=== PATIENT | male | born 1970 | race Caucasian/White ===

== ENCOUNTER → 2018-04-02 | Day surgery (SDC) | payer BC ==
[~2018-04-02] VITALS: Ht 175.3 cm; Wt 122.5 kg
[2018-04-02] VITALS (8 sets, daily range): BP systolic 117–148; BP diastolic 68–88
[~2018-04-02] MED LIST: ASPIR 8181 MG PO; BACTRIM DS TAB1 EACH PO; CALCIUM500 MG PO; CLONIDINE HCL0.2 MG PO; FENTANYL CITRATE/PF 100MCG/2 ML INJ ONE; HEPARIN SOD (PORCINE) 1000 UNIT/ML 30ML ONE; IOPAMIDOL 370 MG/ML 200 ML INFUS..BTL INJ ONE; LEVAQUIN500 MG PO; LIDOCAINE HCL 2% LOCAL 20 ML VIAL ONE; LOSARTAN POTASS50 MG PO; MIDAZOLAM HCL 2 MG/2 ML VIAL ONE; MULTIVITAMINS1 EAC7 PO; PANTOPRAZOLE SO40 MG PO; PREDNISONE20 MG PO; SODIUM CHLORIDE 0.9% 1000ML 1,000 ML ONE; SODIUM CHLORIDE 0.9% 1000ML 2,000 ML ONE; TESSALON PERLE100 MG PO; VERAPAMIL HCL 2.5 MG/ML 2 ML VIAL ONE; VITAMIN C PO; VITAMIN E PO
--- OUTSIDE RECORDS SUMMARY | 2018-04-02 12:54 | XMS REPORT | Clinical Summary ---
Author Author Tito Rastafari Organization [facility] Address Unknown Phone Unavailable Care Team Providers Care Sales Commissions Analyst Name Role Phone Darek Aguilar DO PCP Allergies Comments Active Allergy Reactions Severity Noted Date Mild Nausea Codeine GI 09/07/2017 Intolerance Medications End Date Status Medication Sig Dispensed Refills Start Date Active clonIDINE (CATAPRES) 0.1 Take 0.1 mg 0 MG tablet by mouth daily. Active aspirin (ECOTRIN) 81 MG Take 81 mg by 0 enteric coated tablet mouth daily. Active multivit-minerals/folic Take 1 tablet 0 acid (ONE DAILY GUMMY by mouth VITES ORAL) daily. Active fexofenadine HCl (SIERRA Take 1 tablet 0 ORAL) by mouth daily as needed (allergies). Active acetaminophen (TYLENOL) Take 500 mg 0 500 MG tablet by mouth every 6 (six) hours as needed for mild pain. 09/11/2017 Discontinued losartan-hydrochlorothiaz Take 1 tablet 0 omar (HYZAAR) 50-12.5 mg by mouth per tablet daily. 10/11/2017 losartan (COZAAR) 50 MG Take 1 tablet 30 tablet 0 tabletIndications: (50 mg total) 8 Hypertension, unspecified by mouth type daily for 30 days. 10/12/2017 pantoprazole (PROTONIX) Take 1 tablet 30 tablet 0 40 MG EC tablet (40 mg total) 8 by mouth daily for 30 days. 09/11/2017 Discontinued predniSONE (DELTASONE) 10 Take 1 tablet 32 tablet 0 201 mg tablet (10 mg total) 8 by mouth daily for 32 days. Please take as instructed on discharge instructions. 10/13/2017 predniSONE (DELTASONE) 10 Take 1 tablet 32 tablet 0 05/17/201 mg tablet (10 mg total) 8 by mouth daily for 32 days. Please take as instructed on discharge instructions. Active Problems Problem Noted Date Optic neuritis 09/07/2017 Encounters Care Team Description Date Type Specialty Lolis Jack MD 10/02/2017 Telephone Ophthalmology Yareli Isabel RN 09/11/2017 Patient Quality Outreach Oracio Torres 09/10/2017 Refill Obstetrics and Gynecology Jacinto Lozano MD Septimus, Joshua D., MD Optic neuritis (Primary Dx); Hypertension, unspecified type; Cough 09/07/2017 [facility] General Internal Medicine - Encounter 09/11/2017 after 04/01/2017 Social History Date Tobacco Use Types Packs/Day Years Used Current Every Day Smoker Alcohol Use Drinks/Week oz/Week Comments Yes Sex Assigned at Date Recorded Not on file Industry Job Start Date Occupation Not on file Not on file Not on file Travel End Travel History Travel Start No recent travel history available. Last Filed Vital Signs Time Taken Vital Sign Reading 09/11/2017 10:35 AM CDT Blood Pressure 162/77 09/11/2017 9:07 AM CDT Pulse 68 09/11/2017 9:07 AM CDT Temperature 35.7 C (96.2 F) 09/11/2017 9:07 AM CDT Respiratory Rate 17 09/11/2017 9:07 AM CDT Oxygen Saturation 96% - Inhaled Oxygen - Concentration 09/07/2017 7:07 AM CDT Weight 104 kg (230 lb) 09/07/2017 7:07 AM CDT Height 175.3 cm (5' 9") 09/07/2017 7:07 AM CDT Body Mass Index 33.97 Plan of Treatment Health Maintenance Due Date Last Done Comments INFLUENZA VACCINE 11/26/2017 HEPATITIS B VACCINES Aged Out No longer eligible based on patient's age to complete this topic IPV VACCINES Aged Out No longer eligible based on patient's age to complete this topic MENINGOCOCCAL VACCINE Aged Out No longer eligible based on patient's age to complete this topic Procedures Comments Procedure Name Priority Date/Time Associated Diagnosis POC GLUCOSE Routine 09/11/2017 11:59 AM CDT POC GLUCOSE Routine 09/11/2017 7:06 AM CDT POC GLUCOSE Routine 09/10/2017 8:52 PM CDT POC GLUCOSE Routine 09/10/2017 5:55 PM CDT POC GLUCOSE Routine 09/10/2017 12:04 PM CDT ECG 12-LEAD STAT 09/10/2017 11:25 AM CDT POC GLUCOSE Routine 09/10/2017 8:05 AM CDT ZZESTIMATED GFR Routine 09/10/2017 5:10 AM CDT BASIC METABOLIC PANEL Routine 09/10/2017 5:10 AM CDT HC COMPLETE BLD COUNT Routine 09/10/2017 W/AUTO DIFF 5:10 AM CDT POC GLUCOSE Routine 09/09/2017 9:04 PM CDT POC GLUCOSE Routine 09/09/2017 3:25 PM CDT POC GLUCOSE Routine 09/09/2017 12:05 PM CDT POC GLUCOSE Routine 09/09/2017 7:09 AM CDT ZZESTIMATED GFR Routine 09/09/2017 4:00 AM CDT BASIC METABOLIC PANEL Routine 09/09/2017 4:00 AM CDT HC COMPLETE BLD COUNT Routine 09/09/2017 W/AUTO DIFF 4:00 AM CDT POC GLUCOSE Routine 09/08/2017 9:04 PM CDT POC GLUCOSE Routine 09/08/2017 3:43 PM CDT MISCELLANEOUS REFERRAL Routine 09/08/2017 TEST 3:40 PM CDT PYRUVIC ACID LEVEL Routine 09/08/2017 3:40 PM CDT IGG SUBCLASSES Routine 09/08/2017 3:40 PM CDT POC GLUCOSE Routine 09/08/2017 12:45 PM CDT LACTIC ACID LEVEL Routine 09/08/2017 11:06 AM CDT POC GLUCOSE Routine 09/08/2017 7:44 AM CDT HC COMPLETE BLD COUNT Routine 09/08/2017 W/AUTO DIFF 4:30 AM CDT ZZESTIMATED GFR Routine 09/08/2017 4:00 AM CDT BASIC METABOLIC PANEL Routine 09/08/2017 4:00 AM CDT GRAM STAIN Routine 09/08/2017 3:29 AM CDT SPUTUM CULTURE Routine 09/08/2017 3:29 AM CDT POC GLUCOSE Routine 09/07/2017 5:22 PM CDT MISCELLANEOUS REFERRAL Routine 09/07/2017 TEST 5:20 PM CDT C-REACTIVE PROTEIN Routine 09/07/2017 5:20 PM CDT SEDIMENTATION RATE Routine 09/07/2017 5:20 PM CDT T4, FREE Routine 09/07/2017 5:20 PM CDT THYROID STIMULATING Routine 09/07/2017 HORMONE 5:20 PM CDT FOLATE LEVEL Routine 09/07/2017 5:20 PM CDT VITAMIN B12 LEVEL Routine 09/07/2017 5:[address] ANGIOGRAM NECK W WO STAT 09/07/2017 CONTRAST 3:[address] ANGIOGRAM HEAD W WO STAT 09/07/2017 CONTRAST 3:37 PM CDT MRI BRAIN & ORBIT W WO STAT 09/07/2017 CONTRAST 1:54 PM CDT RESPIRATORY PATHOGEN Routine 09/07/2017 PANEL 12:10 PM CDT POC GLUCOSE Routine 09/07/2017 12:07 PM CDT XR CHEST 2 VW STAT 09/07/2017 11:28 AM CDT ECG 12-LEAD STAT 09/07/2017 7:24 AM CDT ZZESTIMATED GFR STAT 09/07/2017 7:10 AM CDT PARTIAL THROMBOPLASTIN STAT 09/07/2017 TIME (PTT) 7:10 AM CDT PROTHROMBIN TIME WITH INR STAT 09/07/2017 7:10 AM CDT COMPREHENSIVE METABOLIC STAT 09/07/2017 PANEL 7:10 AM CDT HC COMPLETE BLD COUNT STAT 09/07/2017 W/AUTO DIFF 7:[address] HEAD WO CONTRAST STAT 09/07/2017 7:00 AM CDT after 04/01/2017 Results * POC glucose (09/11/2017 11:59 AM CDT) Only the most recent of 16 results within the time period is included. POC glucose 249 (H) 65 - 99 mg/dL [facility] DEPARTMENT OF Comment: PATHOLOGY AND H Notified RN GENOMIC MEDICINE Meter ID: [id number] Video Games Mechanic: Carlos Manuel Mosley Performing Organization Address City/State/Zipcode Phone Number [facility] DEPARTMENT OF [address] [place] [address] PATHOLOGY AND GENOMIC MEDICINE * ECG 12 lead (09/10/2017 11:25 AM CDT) Only the most recent of 2 results within the time period is included. Ventricular rate 67 [facility] MUSE Atrial rate 67 [facility] MUSE MI interval 116 [facility] MUSE QRSD interval 114 [facility] MUSE QT interval 424 [facility] M[facility] QTC interval 448 [facility] MUSE P axis 1 16 [facility] MUSE QRS axis 1 29 [facility] MUSE T wave axis 38 [facility]USE EKG impression Normal sinus rhythm-Normal [facility] ECG-In automated comparison with ECG of 07-SEP-2017 07:24,-No significant change was found- Performing Organization Address City/[facility]/Zipcode Phone Number [facility] M[facility] [address] [place] [address] * Estimated GFR (09/10/2017 5:10 AM CDT) Only the most recent of 4 results within the time period is included. GFR Non Af Amer >90 mL/min/1.73 m2 [facility] DEPARTMENT OF PATHOLOGY AND GENOMIC MEDICINE GFR Af Amer >90 mL/min/1.73 m2 [facility] DEPARTMENT OF Comment: PATHOLOGY AND Chronic kidney disease: <60 GENOMIC MEDICINE mL/min/1.73m2 Kidney failure: <15 mL/min/1.73m2 The estimated GFR is calculated from the IDMS-traceable Modification of Diet in Renal Disease Equation. The accuracy of the calculation is poor when the creatinine is normal. Calculated values >90 mL/min/1.73m2 are not reported. This equation has not been validated in children (<18 years), women, the elderly (>70 years), or ethnic groups other than Caucasians and Americans. Specimen Plasma specimen Performing Organization Address City/[facility] Phone Number [facility] [address] [place] [address] PATHOLOGY AND [employer] MEDICINE * CBC with platelet and differential (09/10/2017 5:10 AM CDT) Only the most recent of 4 results within the time period is included. WBC 22.52 (H) 4.50 - 11.00 k/uL [facility] DEPARTMENT OF PATHOLOGY AND GENOMIC MEDICINE RBC 5.21 4.40 - 6.00 m/uL [facility] DEPARTMENT OF PATHOLOGY AND GENOMIC MEDICINE HGB 14.8 14.0 - 18.0 g/dL [facility] DEPARTMENT OF PATHOLOGY AND GENOMIC MEDICINE HCT 43.7 41.0 - 51.0 % [facility] DEPARTMENT OF PATHOLOGY AND GENOMIC MEDICINE MCV 83.9 82.0 - 100.0 fL [facility] DEPARTMENT OF PATHOLOGY AND GENOMIC MEDICINE MCH 28.4 27.0 - 34.0 pg [facility] DEPARTMENT OF PATHOLOGY AND GENOMIC MEDICINE MCHC 33.9 31.0 - 37.0 g/dL [facility] DEPARTMENT OF PATHOLOGY AND GENOMIC MEDICINE RDW - SD 38.5 37.0 - 55.0 fL [facility] DEPARTMENT OF PATHOLOGY AND GENOMIC MEDICINE MPV 11.8 8.8 - 13.2 fL [facility] DEPARTMENT OF PATHOLOGY AND GENOMIC MEDICINE Platelet count 270 150 - 400 k/uL [facility] DEPARTMENT OF PATHOLOGY AND GENOMIC MEDICINE Nucleated RBC 0.00 /100 WBC [facility] DEPARTMENT OF PATHOLOGY AND GENOMIC MEDICINE Neutrophils 81.3 (H) 39.0 - 69.0 % [facility] DEPARTMENT OF PATHOLOGY AND GENOMIC MEDICINE Lymphocytes 10.4 (L) 25.0 - 45.0 % [facility] DEPARTMENT OF PATHOLOGY AND GENOMIC MEDICINE Monocytes 3.2 0.0 - 10.0 % [facility] DEPARTMENT OF PATHOLOGY AND GENOMIC MEDICINE Eosinophils 0.0 0.0 - 5.0 % [facility] DEPARTMENT OF PATHOLOGY AND GENOMIC MEDICINE Basophils 0.4 0.0 - 1.0 % [facility] DEPARTMENT OF PATHOLOGY AND GENOMIC MEDICINE Immature granulocytes 4.7 (H)Comment: "Immature 0.0 - 1.0 % [facility] DEPARTMENT OF granulocytes" (promyelocytes, PATHOLOGY AND myelocytes, metamyelocytes) GENOMIC MEDICINE Specimen Blood Performing Organization Address City/[facility] [place] [address] PATHOLOGY AND GENOMIC MEDICINE * Basic metabolic panel (09/10/2017 5:10 AM CDT) Only the most recent of 3 results within the time period is included. Sodium 139 135 - 148 mEq/L [facility] DEPARTMENT OF PATHOLOGY AND GENOMIC MEDICINE Potassium 3.8 3.5 - 5.0 mEq/L [facility] DEPARTMENT OF PATHOLOGY AND GENOMIC MEDICINE Chloride 102 98 - 112 mEq/L [facility] DEPARTMENT OF PATHOLOGY AND GENOMIC MEDICINE CO2 25 24 - 31 mEq/L [facility] DEPARTMENT OF PATHOLOGY AND GENOMIC MEDICINE Anion gap 12@ANIO 7 - 15 mEq/L [facility] DEPARTMENT OF PATHOLOGY AND GENOMIC MEDICINE BUN 14 6 - 20 mg/dL [facility] DEPARTMENT OF PATHOLOGY AND GENOMIC MEDICINE Creatinine 0.8 0.7 - 1.2 mg/dL [facility] DEPARTMENT OF PATHOLOGY AND GENOMIC MEDICINE Glucose 125 (H) 65 - 99 mg/dL [facility] DEPARTMENT OF PATHOLOGY AND GENOMIC MEDICINE Calcium 8.9 8.3 - 10.2 mg/dL [facility] DEPARTMENT OF PATHOLOGY AND GENOMIC MEDICINE Specimen Plasma specimen Performing Organization Address City/[facility] Phone Number [address] [address] PATHOLOGY AND [employer] MEDICINE * Miscellaneous referral test (09/08/2017 3:40 PM CDT) Only the most recent of 2 results within the time period is included. [facility] test name [facility] test result see note [facility] Comment: MOG FACS Titer, Serum Result:HIGHPositive 1:100 titer (Reference Value: <1:20) The following antibodies were identified: MOG IgG. Detection of this autoantibody supports the diagnosis of one of a spectrum of steroid responsive inflammatory [employer]OW [employer] demyelinating disorders primarily targeting the oligodendrocyte (autoimmune oligodendrogliopathy). These disorders include optic neuritis (single or bilateral or recurrent), transverse myelitis, acute disseminated encephalomyelitis, and neuromyelitis optica. Persistence of the autoantibody may predict relapse and consideration for maintenance immunotherapy, therefore repeat testing in 6? 12 months should be considered. Laboratory Notes This test was developed and its performance characteristics determined by [facility] in a manner consistent with CLIA requirements. This test has not been cleared or approved by the U.S. Food and Drug Administration. Performing Site [facility] [address] [address] Performing Organization Address [facility] Phone Number [facility] [address] [place] [id number] * Pyruvic acid level (09/08/2017 3:40 PM CDT) Pyruvic acid 0.156 (H) 0.030 - 0.107 mmol/L [facility] Comment: Performed by [facility], [address] [place] [id number] [email or web address], Christos Gilmore MD - Lab. Director Specimen Plasma specimen Performing Organization Address [facility] Phone Number [facility] [address] [place] [address] * IgG subclasses (09/08/2017 3:40 PM CDT) Immunoglobulin G subclass 639 240 - 1,118 mg/dL [facility] 1 Comment: REFERENCE INTERVAL: Immunoglobulin G Subclass 1 Access complete set of age- and/or gender-specific reference intervals for this test in the [email or web address] Laboratory Test Directory ([email or web address]). Immunoglobulin G subclass 271 124 - 549 mg/dL [facility] 2 Comment: REFERENCE INTERVAL: Immunoglobulin G Subclass 2 Access complete set of age- and/or gender-specific reference intervals for this test in the [email or web address] Laboratory Test Directory ([email or web address]). Immunoglobulin G subclass 29 21 - 134 mg/dL [facility] 3 Comment: REFERENCE INTERVAL: Immunoglobulin G Subclass 3 Access complete set of age- and/or gender-specific reference intervals for this test in the [email or web address] Laboratory Test Directory ([email or web address]). Immunoglobulin G subclass 34 1 - 123 mg/dL [facility] 4 Comment: The total IgG (mg/dL) can be derived by the sum of the subclasses IgG1, IgG2, IgG3 and IgG4 values. However, a confirmatory and more precise total IgG is available by the nephelometric method of total IgG (Test # [id number]). REFERENCE INTERVAL: Immunoglobulin G Subclass 4 Access complete set of age- and/or gender-specific reference intervals for this test in the [email or web address] Laboratory Test Directory ([email or web address]). Performed by [facility], [address] [place] [id number] [email or web address], Christos Gilmore MD - Lab. Director Specimen Serum Performing Organization Address [facility] Phone Number [address] [address] * Lactic acid level (09/08/2017 11:06 AM CDT) Lactic acid 3.3 (H) 0.5 - 2.2 mmol/L [facility] DEPARTMENT OF PATHOLOGY AND GENOMIC MEDICINE Specimen Blood Performing Organization Address [facility] Phone Number [facility] DEPARTMENT [address] [address] PATHOLOGY AND GENOMIC MEDICINE * Sputum culture (09/08/2017 3:29 AM CDT) Sputum culture isolate Normal oral shanna isolated. [facility] DEPARTMENT OF Comment: PATHOLOGY AND Specimen Information GENOMIC MEDICINE Specimen Source: Sputum Specimen Site: Expectorated Specimen Sputum - Expectorated Performing Organization Address [facility] Phone Number [facility] DEPARTMENT [address] [address] PATHOLOGY AND GENOMIC MEDICINE * Gram stain (09/08/2017 3:29 AM CDT) Gram stain isolate Occasional WBC's [facility] DEPARTMENT OF Occasional Gram negative rods PATHOLOGY AND Occasional Gram positive rods GENOMIC MEDICINE Moderate Gram positive cocci in pairs Comment: Specimen Information Specimen Source: Sputum Specimen Site: Expectorated Specimen Sputum - Expectorated Performing Organization Address [facility] Phone Number [facility] DEPARTMENT OF [address] [place] [address] PATHOLOGY AND [facility] * Sedimentation rate (09/07/2017 5:20 PM CDT) Sedimentation rate 8 0 - 10 mm/hr [facility] DEPARTMENT OF PATHOLOGY AND GENOMIC MEDICINE Performing Organization Address City/[facility] Phone Number [facility] [place] [place] [address] PATHOLOGY AND [facility] * C-reactive protein (09/07/2017 5:20 PM CDT) CRP 1.80 (H) 0.00 - 0.50 mg/dL [facility] DEPARTMENT OF PATHOLOGY AND GENOMIC MEDICINE Specimen Plasma specimen Performing Organization Address City/[facility] Phone Number [facility] [place] [address] PATHOLOGY AND [facility] * Thyroid stimulating hormone (09/07/2017 5:20 PM CDT) TSH 0.87 0.27 - 4.20 uIU/mL [facility] DEPARTMENT OF PATHOLOGY AND GENOMIC MEDICINE Specimen Plasma specimen Performing Organization Address [facility] Phone Number [facility] [place] [address] PATHOLOGY AND [facility] * T4, free (09/07/2017 5:20 PM CDT) T4, free 1.3 0.9 - 1.7 ng/dL [facility] DEPARTMENT OF PATHOLOGY AND GENOMIC MEDICINE Specimen Plasma specimen Performing Organization Address [facility] Phone Number [facility] [place] [address] PATHOLOGY AND [facility] * Folate level (09/07/2017 5:20 PM CDT) Folate 13.7 4.8 - 24.2 ng/mL [facility] DEPARTMENT OF PATHOLOGY AND GENOMIC MEDICINE Specimen Serum Performing Organization Address City/[facility] Phone Number [facility] [place] [address] PATHOLOGY AND [facility] * Vitamin B12 level (09/07/2017 5:20 PM CDT) Vitamin B12 399 211 - 946 pg/mL [facility] DEPARTMENT OF Comment: PATHOLOGY AND Significant overlap exists [facility] between normal and deficiency states. However, most patients with deficiencies will have Serum B12 <200 pg/mL. Specimen Serum Performing Organization Address City/[facility] Phone Number [facility] DEPARTMENT [place] [phone] PATHOLOGY AND GENOMIC MEDICINE * CTA Neck W Wo Contrast (09/07/2017 3:47 PM CDT) Narrative Performed At EXAMINATION: [facility]: [facility]KE COMPARISON:None TECHNIQUE: Imaging of the cervical circulation was obtained from the upper thorax to the skull base during the arterial phase of enhancement. Postprocessing was performed with MIP multiplanar and 3D reconstructed images.CT imaging was performed with iterative reconstruction technique and/or automated exposure control to reduce radiation dose. FINDINGS: Visualized upper mediastinum shows no mass lesion. Lung apices are clear. Visualized soft tissues shows no mass, adenopathy or fluid collection. Visualized osseous structures shows no acute fracture or dislocation. There is focal spondylosis most prominent at C6-7 with osteophytosis and disc space narrowing. The common carotid arteries, carotid bulbs, internal carotid arteries and external carotid arteries are opacified with 0% stenosis by NASCET criteria. The vertebral arteries are patent throughout the visualized cervical segments without significant stenosis. The vertebral arteries are roughly codominant. IMPRESSION: No hemodynamically significant narrowing of the cervical vessels by NASCET criteria. [facility]-[id number] Procedure Note Interface, Radiology Results Incoming - 09/07/2017 4:00 PM CDT EXAMINATION: CT ANGIOGRAM NECK W WO CONTRAST CLINICAL HISTORY: STROKE COMPARISON: None TECHNIQUE: Imaging of the cervical circulation was obtained from the upper thorax to the skull base during the arterial phase of enhancement. Postprocessing was performed with MIP multiplanar and 3D reconstructed images. CT imaging was performed with iterative reconstruction technique and/or automated exposure control to reduce radiation dose. FINDINGS: Visualized upper mediastinum shows no mass lesion. Lung apices are clear. Visualized soft tissues shows no mass, adenopathy or fluid collection. Visualized osseous structures shows no acute fracture or dislocation. There is focal spondylosis most prominent at C6-7 with osteophytosis and disc space narrowing. The common carotid arteries, carotid bulbs, internal carotid arteries and external carotid arteries are opacified with 0% stenosis by NASCET criteria. The vertebral arteries are patent throughout the visualized cervical segments without significant stenosis. The vertebral arteries are roughly codominant. IMPRESSION: No hemodynamically significant narrowing of the cervical vessels by NASCET criteria. [facility]-[id number] Performing Organization Address City/State/Zipcode Phone Number [facility] [address] [place] [address] * CTA Head W Wo Contrast (09/07/2017 3:37 PM CDT) Narrative Performed At EXAMINATION: CT [facility]IOGRAM HEAD W WO [facility] CL[facility]ICAL [facility]: STROKE COMPARISON:CT brain dated September 07, 2017 and MRI brain dated September 07, 2017 TECHNIQUE:Imaging of the intracranial circulation was obtained from the skull base to the vertex during the arterial phase of enhancement. Postprocessing was performed with MIP multiplanar and 3D reconstructed images.CT imaging was performed with iterative reconstruction technique and/or automated exposure control to reduce radiation dose. FINDINGS: There are no gross brain parenchymal abnormalities. There is no midline shift, hydrocephalus or extra-axial fluid collection. The major dural sinuses are opacified normally. Soft tissue shows no evidence of laceration or hematoma. There is suboptimal opacification of the arteries. Despite this limitation, the major [place] vessels are visualized and patent. No major central vascular occlusion identified. No severe stenosis definitively identified. Distally the vessels are not well-visualized due to poor opacification of the vasculature. There are some scattered mucosal thickening in the sinuses without fluid level. Calvarium is intact. IMPRESSION: Limited exam due to poor opacification of the vessels with no significant [place] vessel abnormality. [facility]-[id number] Procedure Note Interface, Radiology Results Incoming - 09/07/2017 3:47 PM CDT EXAMINATION: CT ANGIOGRAM HEAD W WO CONTRAST CLINICAL HISTORY: STROKE COMPARISON: CT brain dated September 07, 2017 and MRI brain dated September 07, 2017 TECHNIQUE: Imaging of the intracranial circulation was obtained from the skull base to the vertex during the arterial phase of enhancement. Postprocessing was performed with MIP multiplanar and 3D reconstructed images. CT imaging was performed with iterative reconstruction technique and/or automated exposure control to reduce radiation dose. FINDINGS: There are no gross brain parenchymal abnormalities. There is no midline shift, hydrocephalus or extra-axial fluid collection. The major dural sinuses are opacified normally. Soft tissue shows no evidence of laceration or hematoma. There is suboptimal opacification of the arteries. Despite this limitation, the major central [place] vessels are visualized and patent. No major central vascular occlusion identified. No severe stenosis definitively identified. Distally the vessels are not well-visualized due to poor opacification of the vasculature. There are some scattered mucosal thickening in the sinuses without fluid level. Calvarium is intact. IMPRESSION: Limited exam due to poor opacification of the vessels with no significant central [place] vessel abnormality. [facility]-[id number] Performing Organization Address City/State/Zipcode Phone Number [facility] [address] [place] [address] * MRI Brain & Orbit W Wo Contrast (09/07/2017 1:54 PM CDT) Narrative Performed At [facility] EXAMINATION: MRI BRAIN & ORBIT W WO CONTRAST CLINICAL HISTORY: optic neuritis COMPARISON:MRI brain and orbits 09/22/2013. TECHNIQUE: Multiplanar and multisequence MRI imaging of the brain and orbits was obtained with and without contrast. FINDINGS: MRI BRAIN: No evidence of acute intracranial hemorrhage, mass, mass effect, acute infarct or midline shift. No significant FLAIR signal abnormality within the brain parenchyma. Ventricles and sulci are normal in appearance for patient's age. No abnormal intracranial enhancement. Basal cisterns are clear. Major intracranial flow voids are maintained. Mild sinus inflammatory changes. Mastoid air cells are clear. MRI ORBITS: Coronal T2 fat sat images of the orbits are degraded by motion limiting the sensitivity of evaluation. Focal 5 mm segment of enhancement involving the mid right optic nerve intraorbital segment. Suspected bilateral optic nerve atrophy, left greater than with the right transverse dimension of the optic chiasm measuring 12.2 mm. No evidence of orbital mass, collection, or inflammatory stranding. Stable mild prominence of the extraocular muscles without pathologic thickening. Globes and lacrimal glands are unremarkable. IMPRESSION: 1. No acute intracranial abnormality. 2. 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 Bilateral optic nerve atrophy, left greater than right. [id number] Procedure Note Interface, Radiology Results Incoming - 09/07/2017 2:28 PM CDT EXAMINATION: MRI BRAIN & ORBIT W WO CONTRAST CLINICAL HISTORY: optic neuritis COMPARISON: MRI brain and orbits 09/22/2013. TECHNIQUE: Multiplanar and multisequence MRI imaging of the brain and orbits was obtained with and without contrast. FINDINGS: MRI BRAIN: No evidence of acute intracranial hemorrhage, mass, mass effect, acute infarct or midline shift. No significant FLAIR signal abnormality within the brain parenchyma. Ventricles and sulci are normal in appearance for patient's age. No abnormal intracranial enhancement. Basal cisterns are clear. Major intracranial flow voids are maintained. Mild sinus inflammatory changes. Mastoid air cells are clear. MRI ORBITS: Coronal T2 fat sat images of the orbits are degraded by motion limiting the sensitivity of evaluation. Focal 5 mm segment of enhancement involving the mid right optic nerve intraorbital segment. Suspected bilateral optic nerve atrophy, left greater than with the right transverse dimension of the optic chiasm measuring 12.2 mm. No evidence of orbital mass, collection, or inflammatory stranding. Stable mild prominence of the extraocular muscles without pathologic thickening. Globes and lacrimal glands are unremarkable. IMPRESSION: 1. No acute intracranial abnormality. 2. 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 Bilateral optic nerve atrophy, left greater than right. [id number] Performing Organization Address [facility] Phone Number [facility] [address] [place] [address] * Respiratory pathogen panel (09/07/2017 12:10 PM CDT) Respiratory pathogen Negative for all pathogens [facility] DEPARTMENT OF panel tested: PATHOLOGY AND Negative for Adenovirus GENOMIC MEDICINE Negative for Coronavirus HKU1 Negative for Coronavirus NL63 Negative for Coronavirus 229E Negative for Coronavirus OC43 Negative for Human Metapneumovirus Negative for Rhinovirus/Enterovirus Negative for Influenza A Negative for Influenza A/H1 Negative for Influenza A/H3 Negative for Influenza A/H1-2009 Negative for Influenza B Negative for Parainfluenza Virus 1 Negative for Parainfluenza Virus 2 Negative for Parainfluenza Virus 3 Negative for Parainfluenza Virus 4 Negative for Respiratory Syncytial Virus Negative for Bordetella pertussis Negative for Chlamydophila pneumoniae Negative for Mycoplasma pneumoniae This real-time PCR assay detects the presence of nucleic acids (RNA or DNA) for the respiratory pathogens listed. A result of "Not-detected" does not exclude the possibility of the presence of one or more pathogens at concentrations less than the detectable limits of the assay. Comment: Specimen Information Specimen Source: Nares Specimen Site: Left Specimen Nares - Left Performing Organization Address [facility] Phone Number [facility] DEPARTMENT OF [address] [place] [id number] PATHOLOGY AND GENOMIC MEDICINE * XR Chest 2 Vw (09/07/2017 11:28 AM CDT) Narrative Performed At Examination: XR CHEST 2 VW [facility] Clinical history: Cough Comparison: None Impression: 1. The heart and pulmonary vasculature are within normal limits. 2. No infiltrate or effusion is demonstrated. 3. There is no acute osseous pathology. CONCLUSION: NO RADIOGRAPHIC EVIDENCE OF ACUTE CARDIOPULMONARY ABNORMALITY. [id number] Procedure Note Hm Interface, Radiology Results Incoming - 09/07/2017 11:33 AM CDT Examination: XR CHEST 2 VW Clinical history: Cough Comparison: None Impression: 1. The heart and pulmonary vasculature are within normal limits. 2. No infiltrate or effusion is demonstrated. 3. There is no acute osseous pathology. CONCLUSION: NO RADIOGRAPHIC EVIDENCE OF ACUTE CARDIOPULMONARY ABNORMALITY. [id number] Performing Organization Address [facility] [place] [address] * Partial thromboplastin time, activated (09/07/2017 7:10 AM CDT) PTT 29.3 23.0 - 36.0 sec [facility] DEPARTMENT OF Comment: PATHOLOGY AND PTT therapeutic range for GENOMIC MEDICINE unfractionated heparin is 61.0-112.0 seconds which corresponds to Anti-Xa 0.3-0.7 U/ml. Specimen Blood Performing Organization Address [facility] Phone Number [facility] [place] [phone] PATHOLOGY AND DocuTAP MEDICINE * Prothrombin time with INR (09/07/2017 7:10 AM CDT) Prothrombin time 13.1 12.0 - 15.0 sec [facility] DEPARTMENT OF PATHOLOGY AND GENOMIC MEDICINE INR 1.0 [facility] DEPART[facility] OF Comment: PATHOLOGY AND The International Normalized GENOMIC MEDICINE Ratio (INR) is a therapeutic monitoring tool for patients who are stable on oral anticoagulant therapy. An INR of 2.0-3.0 is suggested for deep vein thrombosis/pulmonary embolism. Specimen Blood Performing Organization Address [facility] Phone Number [facility] [address] [address] PATHOLOGY AND GENOMIC MEDICINE * Comprehensive metabolic panel (09/07/2017 7:10 AM CDT) Sodium 138 135 - 148 mEq/L [facility] DEPARTMENT OF PATHOLOGY AND GENOMIC MEDICINE Potassium 4.0 3.5 - 5.0 mEq/L [facility] DEPARTMENT OF PATHOLOGY AND GENOMIC MEDICINE Chloride 101 98 - 112 mEq/L [facility] DEPARTMENT OF PATHOLOGY AND GENOMIC MEDICINE CO2 25 24 - 31 mEq/L [facility] DEPARTMENT OF PATHOLOGY AND GENOMIC MEDICINE Anion gap 12 7 - 15 mEq/L [facility] DEPART[facility] OF Comment: PATHOLOGY AND Starting from July GENOMIC MEDICINE , anion gap calculation no longer incorporates potassium. Please note the change. BUN 9 6 - 20 mg/dL [facility] DEPARTMENT OF PATHOLOGY AND GENOMIC MEDICINE Creatinine 0.9 0.7 - 1.2 mg/dL [facility] DEPARTMENT OF PATHOLOGY AND GENOMIC MEDICINE Glucose 123 (H) 65 - 99 mg/dL [facility] DEPARTMENT OF PATHOLOGY AND GENOMIC MEDICINE Calcium 9.1 8.3 - 10.2 mg/dL [facility] DEPARTMENT OF PATHOLOGY AND GENOMIC MEDICINE Protein 7.7 6.3 - 8.3 g/dL [facility] DEPARTMENT OF Comment: PATHOLOGY AND GENOMIC MEDICINE 4.6-7.0 g/dL 1 week 4.4-7.6 g/dL 7 months-1year 5.1-7.3 g/dL 1-2 years5.6-7 .5 g/dL >3 years6.0-8 .0 g/dL 18-150 6.3-8.3 g/dL Albumin 3.8 3.5 - 5.0 g/dL [facility] DEPARTMENT OF PATHOLOGY AND GENOMIC MEDICINE A/G ratio 1.0 0.7 - 3.8 [facility] DEPARTMENT OF PATHOLOGY AND GENOMIC MEDICINE Alkaline phosphatase 79 40 - 129 U/L [facility] DEPARTMENT OF PATHOLOGY AND GENOMIC MEDICINE AST 30 10 - 50 U/L [facility] DEPARTMENT OF PATHOLOGY AND GENOMIC MEDICINE ALT 23 5 - 50 U/L [facility] DEPARTMENT OF PATHOLOGY AND GENOMIC MEDICINE Total bilirubin 0.3 0.0 - 1.2 mg/dL [facility] DEPARTMENT OF PATHOLOGY AND GENOMIC MEDICINE Specimen Plasma specimen Performing Organization Address City/State/[facility] Phone Number [facility] DEPARTMENT OF [address] [place] [address] PATHOLOGY AND GENOMIC MEDICINE * CT Head Wo Contrast (09/07/2017 7:00 AM CDT) Narrative Performed At EXAMINATION:CT HEAD WO CONTRAST [facility] CLINICAL HISTORY:VISUAL LOSSSUDDEN ONSET, known h o optic neuritis COMPARISON:September 22, 2013 TECHNIQUE: CT imaging was performed with iterative reconstruction technique and/or automated exposure control to reduce radiation dose. Findings: No intracranial hemorrhage, acute transcortical ischemia, extra-axial fluid collections or parenchymal mass lesions. No skull fractures or aggressive bony lesions. Mild to moderate mucosal inflammatory changes. Mastoid air cells are clear. IMPRESSION: No acute intracranial abnormalities. [facility]-[id number] Procedure Note Hm Interface, Radiology Results Incoming - 09/07/2017 7:22 AM CDT EXAMINATION: CT HEAD WO CONTRAST CLINICAL HISTORY: VISUAL LOSS SUDDEN ONSET, known h o optic neuritis COMPARISON: September 22, 2013 TECHNIQUE: CT imaging was performed with iterative reconstruction technique and/or automated exposure control to reduce radiation dose. Findings: No intracranial hemorrhage, acute transcortical ischemia, extra-axial fluid collections or parenchymal mass lesions. No skull fractures or aggressive bony lesions. Mild to moderate mucosal inflammatory changes. Mastoid air cells are clear. IMPRESSION: No acute intracranial abnormalities. [facility]-[id number] Performing Organization Address City/State/Zipcode Phone Number [facility] [address] [place] [address] after 04/01/2017 Insurance Payer Benefit Subscriber ID Type Phone Address Plan / Group BCBS BCBS xxxxxxxxxxxx PPO CHOICE PPO/KENAN BAE PPO Advance Directives Patient has advance care planning documents on file. For more information, nancy joe contact: Tito Jha [address] [place] [address]
--- OUTSIDE RECORDS SUMMARY | 2018-04-02 12:56 | XMS REPORT | Summary of Care ---
Author Author [facility] Organization [facility] Address Unknown Phone Unavailable Encounter HQ Alicia(FIN) [id number] Date(s): 11/04/16 - 11/04/16 [facility] [address] [place] [address]- Discharge Disposition: Home or Self Care Attending Physician: Ace May MD Vital Signs No data available for this section Problem List Condition Effective Dates Status Health Status Informant COPD with acute < 02/21/16 Resolved exacerbation(Confirm ed) Eye Active disorder(Confirmed) Hypertension(Confirm Resolved ed) HTN Active (hypertension)(Confi rmed) Obesity(Confirmed) Active 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 Alcohol Current, Type Beer, Wine, Liquor. Frequency: 1-2 times per month. Smoking Status Current some day smoker; Type: Cigarettes; Exposure to Tobacco Smoke None; Exposure to Tobacco Smoke self; Cigarette Smoking Last 365 Days Yes; Reg Smoking Cessation Counseling Yes Assessment and Plan No data available for this section
--- OUTSIDE RECORDS SUMMARY | 2018-04-02 12:56 | XMS REPORT | Summary of Care ---
Author Organization Unknown Address Unknown Phone Unavailable Encounter HQ Encntr_rebecca(CARL) [id number] Date(s): 09/09/13 - 09/09/13 [facility] [address] Discharge Disposition: Home Physician Attending: Darek Aguilar DO Reason for Visit PAIN Problem List Condition Effective Dates Status Health Status Informant DM - Diabetes Resolved mellitus(Confirmed) Allergies, Adverse Reactions, Alerts Substance Reaction Severity Status NKDA Active Medications No data available for this section Medications Administered During Your Visit No data available for this section Immunizations No data available for this section Social History Social History Type Response
--- OUTSIDE RECORDS SUMMARY | 2018-04-02 12:56 | XMS REPORT | Summary of Care ---
Author Author [facility] Organization [facility] Address Unknown Phone Unavailable Encounter HQ Alicia(FIN) [id number] Date(s): 09/14/17 - 09/14/17 [facility] [address] [place] [address]- [phone] Encounter Diagnosis Generalized weakness (Discharge Diagnosis) - 09/14/17 Discharge Disposition: Home or Self Care Attending Physician: Florentino Reyes MD Vital Signs 1 2 3 Most recent to oldest [Reference Range]: 175.26 cm (09/14/17 11:07 AM) Height 98.5 DegF (09/14/17 5:26 PM) 97.7 DegF (09/14/17 11:07 AM) Temperature Oral [96.4-99.1 DegF] 146/84 mmHg *HI* (09/14/17 5:26 PM) 148/93 mmHg *HI* (09/14/17 3:45 PM) 148/92 mmHg *HI* (09/14/17 2:15 PM) Blood Pressure [90-140/60-90 mmHg] 18 BRMIN (09/14/17 5:26 PM) 17 BRMIN (09/14/17 3:45 PM) 13 BRMIN *LOW* (09/14/17 2:15 PM) Respiratory Rate [14-20 BRMIN] 72 bpm (09/14/17 11:07 AM) Peripheral Pulse Rate [60-100 bpm] 113.636 kg (09/14/17 11:07 AM) Weight 37 m2 (09/14/17 11:07 AM) Body Mass Index Problem List Condition Effective Dates Status Health Status Informant COPD with acute < 02/21/16 Resolved exacerbation(Confirm ed) Eye Active disorder(Confirmed) Hypertension(Confirm Resolved ed) HTN Active (hypertension)(Confi rmed) Obesity(Confirmed) Active 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 636 kg, Start date: 09/14/17 13:06:00 CDT, Stop date: 09/14/17 13:06:00 CDT Start Date: 09/14/17 Stop Date: 09/14/17 Status: Completed Results ELECTROLYTES Most recent to 1 oldest [Reference Range]: Sodium Lvl [135-145 140 mEq/L mEq/L] (09/14/17 12:48 PM) Potassium Lvl 3.5 mEq/L [3.5-5.1 mEq/L] (09/14/17 12:48 PM) Chloride Lvl [95-109 104 mEq/L mEq/L] (09/14/17 12:48 PM) CO2 [24-32 mEq/L] 29 mEq/L (09/14/17 12:48 PM) AGAP [10.0-20.0 10.5 mEq/L mEq/L] (09/14/17 12:48 PM) CHEM PANEL Most recent to 1 oldest [Reference Range]: Creatinine Lvl 0.96 mg/dL [0.50-1.40 mg/dL] (09/14/17 12:48 PM) eGFR 93 mL/min/1.73m2 1 *NA* (09/14/17 12:48 PM) BUN [7-22 mg/dL] 19 mg/dL (09/14/17 12:48 PM) B/C Ratio [6-25] 20 (09/14/17 12:48 PM) Glucose Lvl [70-99 115 mg/dL mg/dL] *HI* (09/14/17 12:48 PM) Total Protein 6.0 g/dL [6.4-8.4 g/dL] *LOW* (09/14/17 12:48 PM) Albumin Lvl [3.5-5.0 3.1 g/dL g/dL] *LOW* (09/14/17 12:48 PM) Globulin [2.7-4.2 2.9 g/dL g/dL] (09/14/17 12:48 PM) A/G Ratio [0.7-1.6] 1.1 (09/14/17 12:48 PM) Calcium Lvl 7.7 mg/dL [8.5-10.5 mg/dL] *LOW* (09/14/17 12:48 PM) ALT [0-65 unit/L] 100 unit/L *HI* (09/14/17 12:48 PM) AST [0-37 unit/L] 26 unit/L (09/14/17 12:48 PM) Alk Phos [39-136 68 unit/L unit/L] (09/14/17 12:48 PM) Bili Total [0.2-1.3 0.3 mg/dL mg/dL] (09/14/17 12:48 PM) 1Result Comment: The eGFR is calculated using the CKD-EPI formula. In most young, healthy individuals the eGFR will be >90 mL/min/1.73m2. The eGFR declines with age. An eGFR of 60-89 may be normal in some populations, particularly the elderly, for whom the CKD-EPI formula has not been extensively validated. Use of the eGFR is not recommended in the following populations: Individuals with unstable creatinine concentrations, including patients and those with serious co-morbid conditions. Patients with extremes in muscle mass or diet. The data above are obtained from the National Kidney Disease Education Program ( NKDEP) which additionally recommends that when the eGFR is used in patients with extremes of body mass index for purposes of drug dosing, the eGFR should be mul tiplied by the estimated BMI. CARDIAC ENZYMES Most recent to 1 oldest [Reference Range]: Total CK [12-191 78 unit/L unit/L] (09/14/17 12:48 PM) CK MB [0.5-3.6 1.3 ng/mL ng/mL] (09/14/17 12:48 PM) CK MB Index 1.7 [0.0-2.5] (09/14/17 12:48 PM) Troponin-I <0.02 ng/mL [0.00-0.40 ng/mL] (09/14/17 12:48 PM) URINE AND STOOL Most recent to 1 oldest [Reference Range]: UA Turbidity [Clear] Clear (09/14/17 1:23 PM) UA Color Ltyellow *NA* (09/14/17 1:23 PM) UA pH [5.0-8.0] 7.0 (09/14/17 1:23 PM) UA Spec Grav 1.014 [<=1.030] (09/14/17 1:23 PM) UA Glucose [Negative Negative mg/dL mg/dL] *NA* (09/14/17 1:23 PM) UA Blood [Negative] Negative (09/14/17 1:23 PM) UA Ketones [Negative Negative mg/dL mg/dL] *NA* (09/14/17 1:23 PM) UA Protein [Negative Negative mg/dL mg/dL] (09/14/17 1:23 PM) UA Urobilinogen <=1.0 mg/dL [0.1-1.0 mg/dL] *NA* (09/14/17 1:23 PM) UA Bili [Negative] Negative *NA* (09/14/17 1:23 PM) UA Leuk Est Negative [Negative] (09/14/17 1:23 PM) UA Nitrite Negative [Negative] (09/14/17 1:23 PM) UA WBC [0-5 /HPF] <1 /HPF (09/14/17 1:23 PM) UA Bacteria [None Occasional /HPF Seen /HPF] *NA* (09/14/17 1:23 PM) UA Sq Epi None Seen *NA* (09/14/17 1:23 PM) HEMATOLOGY Most recent to 1 oldest [Reference Range]: WBC [3.7-10.4 K/CMM] 25.7 K/CMM *HI* (09/14/17 12:48 PM) RBC [4.70-6.10 5.67 M/CMM M/CMM] (09/14/17 12:48 PM) Hgb [14.0-18.0 g/dL] 15.9 g/dL (09/14/17 12:48 PM) Hct [42.0-54.0 %] 47.3 % (09/14/17 12:48 PM) MCV [80.0-94.0 fL] 83.5 fL (09/14/17 12:48 PM) MCH [27.0-31.0 pg] 28.1 pg (09/14/17 12:48 PM) MCHC [32.0-36.0 33.7 g/dL g/dL] (09/14/17 12:48 PM) RDW [11.5-14.5 %] 13.3 % (09/14/17 12:48 PM) MPV [7.4-10.4 fL] 10.0 fL (09/14/17 12:48 PM) Platelet [133-450 263 K/CMM K/CMM] (09/14/17 12:48 PM) Segs [45.0-75.0 %] 74.0 % (09/14/17 12:48 PM) Lymphocytes 18.0 % [20.0-40.0 %] *LOW* (09/14/17 12:48 PM) Atypical Lymphs 3.0 % [<=0.0 %] *HI* (09/14/17 12:48 PM) Monocytes [2.0-12.0 5.0 % %] (09/14/17 12:48 PM) Segs-Bands # 19.0 K/CMM [1.5-8.1 K/CMM] *HI* (09/14/17 12:48 PM) Lymphocytes # 5.4 K/CMM [1.0-5.5 K/CMM] (09/14/17 12:48 PM) Monocytes # [0.0-0.8 1.3 K/CMM K/CMM] *HI* (09/14/17 12:48 PM) RBC Morph Normal (09/14/17 12:48 PM) Neut Vac [None Seen] Moderate *ABN* (09/14/17 12:48 PM) Smudge occasional *NA* (09/14/17 12:48 PM) Plt Morph Normal (09/14/17 12:48 PM) Immunizations Given and Recorded Vaccine Date Status Refusal Reason diphtheria/pertussis, acel/tetanus adult 06/26/16 Given pneumococcal 23-valent vaccine 03/08/16 Given influenza virus vaccine, inactivated 03/04/16 Given Procedures No data available for this section Social History Social History Type Response Substance Abuse Use: None. Alcohol Current, Type Beer, Wine, Liquor. Frequency: 1-2 times per month. Smoking Status Current some day smoker; Type: Cigarettes; Ready to change: No; Concerns about tobacco use in household: Yes; Exposure to Tobacco Smoke self; Cigarette Smoking Last 365 Days Yes; Reg Smoking Cessation Counseling Yes; Tobacco use per day: 10; Started at age: 19.0; entered on: 09/14/17 Assessment and Plan No data available for this section
--- OUTSIDE RECORDS SUMMARY | 2018-04-02 12:56 | XMS REPORT | Summary of Care ---
Author Author [facility] Address Unknown Phone Unavailable Encounter HQ Alicia(FIN) [id number] Date(s): 08/28/17 - 08/28/[address] [place] [address] [facility] [address] [place] [address]- [phone] Discharge Disposition: Home or Self Care Attending Physician: Darek Aguilar DO Vital Signs Most recent to 1 oldest [Reference Range]: Height 175.26 cm (08/28/17 8:18 AM) Temperature Oral 98.3 DegF [96.4-99.1 DegF] (08/28/17 8:18 AM) Blood Pressure 188/99 mmHg [90-140/60-90 mmHg] *HI* (08/28/17 8:18 AM) Peripheral Pulse 75 bpm Rate [60-100 bpm] (08/28/17 8:18 AM) Weight 111.108 kg (08/28/17 8:18 AM) Body Mass Index 36.17 m2 (08/28/17 8:18 AM) Problem List Condition Effective Dates Status Health Status Informant COPD with acute < 02/21/16 Resolved exacerbation(Confirm ed) Eye Active disorder(Confirmed) Hypertension(Confirm Resolved ed) HTN Active (hypertension)(Confi rmed) Obesity(Confirmed) Active 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
--- OUTSIDE RECORDS SUMMARY | 2018-04-02 12:56 | XMS REPORT | Continuity of Care Document ---
Author Author [facility] Interface Address Unknown Phone Unavailable Problems Problem Status Onset Date Classification Date Reported Comments Source ACUTE CHEST PAIN Active 2018 [facility] CP Active 2018 [facility] FEVER Active 02/24/2018 [facility] R06.00 Active 01/23/2018 [facility] Generalized weakness 12/07/2017 12/09/2017 [facility] Feeling light headed 12/07/2017 12/09/2017 [facility] WEAKNESS Active 12/07/2017 [facility] DIZZINESS Active 09/14/2017 [facility] Essential hypertension 07/17/2017 10/16/2017 [facility] Hypertension, uncontrolled 07/10/2017 10/16/2017 [facility] LEFT ARM PAIN/ CHEST PAIN Active 07/09/2017 [facility] Discharge Diagnosis: Bronchitis 03/01/2017 03/04/2017 [facility] SHORTNESS OF BREATH Active 02/28/2017 [facility] J20.9 Active 11/04/2016 [facility] CHEST PAIN Active 03/07/2016 [facility] COPD with acute exacerbation Resolved 02/21/2016 Problem 12/09/2017 [facility] Discharge Diagnosis: Dyspnea, unspecified 12/10/2015 12/14/2015 [facility] SOB Active 12/10/2015 [facility] Eye disorder Active Problem 12/09/2017 [facility] Hypertension Resolved Problem 12/09/2017 [facility] HTN (<span [id number]">Confirmed</span>) Active Problem 12/09/2017 [facility] Obesity Active Problem 12/09/2017 [facility] Optic neuritis Resolved Problem 12/09/2017 [facility] 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 Resolved Problem 12/09/2017 [facility] Obesity, unspecified 10/16/2017 [facility] Nicotine dependence, cigarettes, uncomplicated 10/16/2017 [facility] FPC use of aspirin 10/16/2017 [facility] DM - Diabetes mellitus Resolved Problem 12/14/2015 [facility] DM - Diabetes mellitus Resolved Problem 11/25/2012 [facility] CHEST PAIN NOS Active [facility] PAIN Active [facility] CHEST PAIN, UNSPECIFIED Active [facility] Medications Medication Details Route Status Patient Instructions Ordering Provider Order Date Source Sodium Chloride 0.9% (Bolus) IV 1,000 mL, 1000 ml/hr, Infuse Over: 1 hr, Route: IV, 1,000, Drug form: INJ, ONCE, Priority: STAT, Dosing Weight 116.364 kg, Start date: 12/07/17 9:48:00 CDT, Stop date: 12/07/17 9:48:00 CDT Inactive 12/07/2017 [facility] predniSONE 5 mg oral tablet 5 mg=1 tab, PO, Daily, 0 Refill(s) Active 11/17/2017 [facility] predniSONE 20 mg oral tablet 20 mg=1 tab, PO, Daily, 0 Refill(s) Active 11/17/2017 [facility] Clonidine Hydrochloride 0.1 MG Oral Tablet 0.1 mg=1 tab, PO, ONCE, # 90 tab, 1 Refill(s), Pharmacy: [place] [address] Active 10/09/2017 [facility] pantoprazole 40 mg oral enteric coated tablet 40 mg=1 tab, PO, Daily, # 90 tab, 0 Refill(s), Pharmacy: [place] [address] Active 10/09/2017 [facility] losartan 50 mg oral tablet 50 mg=1 tab, PO, Daily, # 90 tab, 1 Refill(s), Pharmacy: [place] [address] Active 10/09/2017 [facility] predniSONE 10 mg oral tablet 10 mg=1 tab, PO, Daily, 0 Refill(s) Active 09/18/2017 [facility] pantoprazole 40 mg oral enteric coated tablet 40 mg=1 tab, PO, Daily, 0 Refill(s) Active 09/18/2017 [facility] losartan 50 mg oral tablet 50 mg=1 tab, PO, Daily, 0 Refill(s) Active 09/18/2017 [facility] Famotidine 20 MG Oral Tablet [Pepcid] 20 mg=1 tab, PO, BID, # 60 tab, 0 Refill(s), Pharmacy: [place] [address] Active 09/14/2017 [facility] Sodium Chloride 0.9% (Bolus) IV 1,000 mL, Infuse Over: 1 hr, Route: IV, ONCE, Priority: STAT, Dosing Weight 113.636 kg, Start date: 09/14/17 13:06:00 CDT, Stop date: 09/14/17 13:06:00 CDT Inactive 09/14/2017 [facility] Hydrochlorothiazide 12.5 MG / Losartan Potassium 50 MG Oral Tablet 1 tab, PO, Daily, # 90 tab, 0 Refill(s), Pharmacy: [place] [address] Active 08/28/2017 [facility] cefdinir 300 MG Oral Capsule [Omnicef] 300 mg=1 cap, PO, Q12H, X 7 day, # 14 cap, 0 Refill(s), Pharmacy: [place] [address] Active 08/06/2017 [facility] Hydrochlorothiazide 25 MG Oral Tablet 25 mg=1 tab, PO, Daily, # 90 tab, 0 Refill(s), Pharmacy: [place] [address] No Longer Active 08/04/2017 [facility] amLODIPine 10 mg oral tablet 10 mg=1 tab, PO, Daily, 0 Refill(s) No Longer Active 08/03/2017 [facility] Amoxicillin 875 MG / Clavulanate 125 MG Oral Tablet [Augmentin 875-mg] 875 mg=1 tab, PO, BID, X 10 day, # 20 tab, 0 Refill(s), [id number] No Longer Active 08/03/2017 [facility] Fluticasone propionate 0.05 MG/ACTUAT Metered Dose Nasal Apison [Flonase] 2 spray, NASAL, Daily, in each nostril, # 16 gm, 1 Refill(s), [id number] 08/03/2017 [facility] Amoxicillin 875 MG / Clavulanate 125 MG Oral Tablet [Augmentin 875-mg] 875 mg=1 tab, PO, BID, X 10 day, # 20 tab, 0 Refill(s), Pharmacy: [place] [address] Inactive 08/03/2017 [facility] Fluticasone propionate 0.05 MG/ACTUAT Metered Dose Nasal Apison [Flonase] 2 spray, NASAL, Daily, in each nostril, # 16 gm, 1 Refill(s), Pharmacy: [place] [address] Inactive 08/03/2017 [facility] Saline Flush 0.9% 10 mL, Route: IVP, Drug Form: INJ, Dosing Weight 112.273, kg, PRN, PRN Line Flush, Start date: 07/09/17 22:38:00 CDT, Duration: 30 day, Stop date: 08/08/17 22:37:00 CDTNotes: (Same as: BD Posiflush) No Longer Active 07/10/2017 [facility] Clonidine Hydrochloride 0.1 MG Oral Tablet 0.1 mg=1 tab, PO, ONCE, # 30 tab, 1 Refill(s), Pharmacy: [place] [address] Active 06/19/2017 [facility] buPROPion 150 mg/24 hours (XL) oral tablet, extended release 150 mg=1 tab, PO, Q24H, # 30 tab, 1 Refill(s), Pharmacy: [place] [address] No Longer Active 06/19/2017 [facility] Clonidine Hydrochloride 0.1 MG Oral Tablet 0.1 mg=1 tab, PO, BID, 0 Refill(s) No Longer Active 06/19/2017 [facility] predniSONE 20 mg oral tablet 40 mg=2 tab, PO, Daily, X 5 day, # 10 tab, 0 Refill(s) Active 03/01/2017 [facility] predniSONE 60 mg, Route: PO, Drug form: TAB, ONCE, Dosing Weight 109.091, kg, Priority: STAT, Start date: 03/01/17 4:45:00 CDT, Stop date: 03/01/17 4:45:00 CDT Inactive 03/01/2017 [facility] albuterol-ipratropium 2.5-0.5 mg inhalation solution 3 mL, Route: NEB, Drug Form: SOLN, Dosing Weight 109.091, kg, ONCE, STAT, Start date: 03/01/17 4:10:00 CDT, Stop date: 03/01/17 4:10:00 CDT Inactive 03/01/2017 [facility] Tylenol 650 mg, 2 tab, Route: PO, Drug form: TAB, Q6H, Dosing Weight 105.994, kg, PRN Pain Score 1-3, Start date: 03/08/16 16:17:00 CERTIFIED OPHTHALMIC TECHNICIAN, Duration: 30 day, Stop date: 04/07/16 16:16:00 CSTNotes: Do not exceed 4 gm/day. (Same as: Tylenol) Inactive 03/08/2016 [facility] atorvastatin 40 MG Oral Tablet [Lipitor] 40 mg=1 tab, PO, Bedtime, # 90 tab, 3 Refill(s) Active 03/08/2016 [facility] Aspirin 81 MG Enteric Coated Tablet 81 mg=1 tab, PO, Daily, # 90 tab, 3 Refill(s) Active 03/08/2016 [facility] Sodium Chloride 0.154 MEQ/ML Injectable Solution 750 mL, Rate: 75 ml/hr, Infuse over: 10 hr, Route: IV, Dosing Weight 105.994 kg, Total Volume: 750, Start date: 03/08/16 11:43:00 CERTIFIED OPHTHALMIC TECHNICIAN, Duration: 10 hr, Stop date: 03/08/16 21:42:00 CERTIFIED OPHTHALMIC TECHNICIAN Inactive 03/08/2016 [facility] pneumococcal capsular polysaccharide type 1 vaccine / pneumococcal capsular polysaccharide type 10A vaccine / pneumococcal capsular polysaccharide type 11A vaccine / pneumococcal capsular polysaccharide type 12F vaccine / pneumococcal capsular polysacchar 0.5 mL, Route: IM, Drug Form: INJ, Daily, Start date: 03/08/16 9:00:00 CERTIFIED OPHTHALMIC TECHNICIAN, Duration: 1 doses or times, Stop date: 03/08/16 9:00:00 CSTNotes: (Same as: Pneumovax 23) Refrigerate Inactive 03/08/2016 [facility] Losartan 50 mg, 1 tab, Route: PO, Drug form: TAB, Daily, Dosing Weight 106.818, kg, Start date: 03/07/16 22:00:00 CERTIFIED OPHTHALMIC TECHNICIAN, Duration: 30 day, Stop date: 04/06/16 9:00:00 CSTNotes: (Same as: Cozaar) No Longer Active 03/08/2016 [facility] Zyban 150 mg, 1 tab, Route: PO, Drug form: ERTAB, Daily, Dosing Weight 106.818, kg, Start date: 03/07/16 22:00:00 CERTIFIED OPHTHALMIC TECHNICIAN, Duration: 30 day, Stop date: 04/06/16 9:00:00 CSTNotes: (Do not crush) (Same As: Wellbutrin SR) No Longer Active 03/08/2016 [facility] Saline Flush 0.9% 10 ml, Route: IVP, Drug Form: INJ, Dosing Weight 109.716, kg, Q12H, Start date: 03/07/16 21:00:00 CERTIFIED OPHTHALMIC TECHNICIAN, Duration: 30 day, Stop date: 04/06/16 9:00:00 CSTNotes: (Same as: BD Posiflush) No Longer Active 03/08/2016 [facility] 12 HR Bupropion Hydrochloride 150 MG Extended Release Tablet [Zyban] 150 mg=1 tab, PO, Daily, 0 Refill(s) Active 03/08/2016 [facility] Aspirin 81 MG Enteric Coated Tablet 81 mg, 1 tab, Route: PO, Drug form: ECTAB, Daily, Dosing Weight 109.716, kg, Priority: NOW, Start date: 03/07/16 17:08:00 CERTIFIED OPHTHALMIC TECHNICIAN, Duration: 30 day, Stop date: 04/06/16 9:00:00 CSTNotes: Do not crush or chew. (Same As: Ecotrin) No Longer Active 03/07/2016 [facility] Saline Flush 0.9% 10 ml, Route: IVP, Drug Form: INJ, Dosing Weight 109.716, kg, PRN, PRN Line Flush, Start date: 03/07/16 15:55:00 CERTIFIED OPHTHALMIC TECHNICIAN, Duration: 30 day, Stop date: 04/06/16 15:54:00 CSTNotes: (Same as: BD Posiflush) No Longer Active 03/07/2016 [facility] Nitroglycerin 0.4 mg, 1 tab, Route: SL, Drug form: TAB, Q5Min, Dosing Weight 109.716, kg, PRN Chest Pain, Start date: 03/07/16 15:55:00 CERTIFIED OPHTHALMIC TECHNICIAN, Duration: 3 doses or times, Stop date: Limited # of timesNotes: (Same as :Nitroquick, Nitrostat) "Do Not Crush" Sublingual tablet No Longer Active 03/07/2016 [facility] predniSONE 20 mg oral tablet 40 mg=2 tab, PO, Daily, X 5 day, # 10 tab, 0 Refill(s), Pharmacy: [place] [address] Active 12/11/2015 [facility] 200 ACTUAT Albuterol 0.09 MG/ACTUAT Metered Dose Inhaler 2 puff, INHALATION, Q4H, PRN for wheezing, # 9 gm, 0 Refill(s), Pharmacy: [place] [address] Active 12/11/2015 [facility] Prednisone 60 mg, Route: PO, Drug form: TAB, ONCE, Dosing Weight 104.545, kg, Priority: STAT, Start date: 12/10/15 21:20:00 CDT, Stop date: 12/10/15 21:20:00 CDT Inactive 12/11/2015 [facility] Albuterol 0.833 MG/ML / Ipratropium [place] 0.167 MG/ML Inhalant Solution 9 mL, Route: NEB, Dosing Weight 104.545, kg, ONCE, STAT, Start date: 12/10/15 21:20:00 CDT, Stop date: 12/10/15 21:20:00 CDT Inactive 12/11/2015 [facility] Saline Flush 0.9% 10 mL, Route: IVP, Drug Form: INJ, Dosing Weight 106.364, kg, PRN, PRN Line Flush, Start date: 12/10/15 20:57:00 CDT, Duration: 30 day, Stop date: 01/09/16 20:56:00 CDTNotes: (Same as: BD Posiflush) No Longer Active 12/11/2015 [facility] Protonix 40 mg, 1 tab, Route: PO, Drug form: ECTAB, Before Dinner, Dosing Weight 90.909, kg, Start date: 11/23/12 16:30:00, Duration: 30 day, Stop date: 12/22/12 16:30:00 PO No Longer Active [facility] 11/23/2012 [facility] pantoprazole 40 mg oral enteric coated tablet 40 mg, 1 tab, PO, Before Dinner, 30 tab, Substitution Allowed, ECTAB PO Active -[facility] 11/23/2012 [facility] nitroglycerin 0.4 mg sublingual tablet 0.4 mg, 1 tab, SL, Q5Min, PRN, 25 tab, Chest Pain, Substitution Allowed, TAB SL Active [facility] 11/23/2012 [facility] levofloxacin 250 mg oral tablet 500 mg, 2 tab, PO, [id number], 7 tab, Substitution Allowed, TAB PO Active [facility] 11/23/2012 [facility] Levaquin 500 mg, 2 tab, Route: PO, Drug form: TAB, [id number], Dosing Weight 90.909, kg, Start date: 11/23/12 10:00:00, Duration: 7 day, Stop date: 11/29/12 10:00:00 PO No Longer Active [facility] 11/23/2012 [facility] NTG sublingual tablet 0.4 mg, Route: SL, Q5Min, Dosing Weight 90.909, kg, PRN Chest Pain, Start date: 11/23/12 9:58:00, Duration: 30 day, Stop date: 12/23/12 9:57:00 SL No Longer Active [facility] 11/23/2012 [facility] nitroglycerin 0.4 mg sublingual tablet 0.4 mg, 1 tab, Route: SL, Drug form: TAB, Q5Min, PRN Chest Pain, Start date: 11/22/12 23:23:00, Duration: 30 day, Stop date: 12/22/12 23:22:00 SL No Longer Active [facility] 11/23/2012 [facility] atropine 0.5 mg, 5 mL, Route: IVP, Drug form: INJ, PRN, PRN Bradycardia, Start date: 11/22/12 23:22:00, Duration: 30 day, Stop date: 12/22/12 23:21:00 IVP No Longer Active [facility] 11/23/2012 [facility] Tylenol 325 mg oral tablet 650 mg, 2 tab, PO, Q4H, PRN, 120 tab, Pain, Substitution Allowed PO No Longer Active 11/23/2012 [facility] Saline Flush 0.9% 5 ml, Route: IVP, Drug Form: INJ, Dosing Weight 90.909, kg, PRN, PRN Line Flush, Start date: 11/22/12 23:18:00, Duration: 30 day, Stop date: 12/22/12 23:17:00 IVP No Longer Active [facility] 11/23/2012 [facility] aspirin 325 mg tablet 325 mg, 1 tab, Route: PO, Drug form: TAB, Daily, Dosing Weight 90.909, kg, Priority: STAT, Start date: 11/22/12 23:18:00, Duration: 30 day, Stop date: 12/22/12 9:00:00 PO No Longer Active [facility] 11/23/2012 [facility] ondansetron 4 mg, 2 mL, Route: IVP, Drug form: INJ, Q8H, Dosing Weight 90.909, kg, PRN Nausea & Vomiting, Start date: 11/22/12 23:18:00, Duration: 30 day, Stop date: 12/22/12 23:17:00 IVP No Longer Active [facility] 11/23/2012 [facility] acetaminophen-hydrocodone 325 mg-5 mg oral tablet 1 tab, Route: PO, Drug Form: TAB, Dosing Weight 90.909, kg, Q4H, PRN Pain Score 1-3, Start date: 11/22/12 23:18:00, Duration: 30 day, Stop date: 12/22/12 23:17:00 PO No Longer Active [facility] 11/23/2012 [facility] docusate 100 mg, 1 cap, Route: PO, Drug form: CAP, BID, Dosing Weight 90.909, kg, PRN Constipation, Start date: 11/22/12 23:18:00, Duration: 30 day, Stop date: 12/22/12 23:17:00 PO No Longer Active [facility] 11/23/2012 [facility] morphine Sulfate 4 mg, 2 mL, Route: IVP, Drug form: INJ, Q3H, Dosing Weight 90.909, kg, PRN Pain Score 7-10, Start date: 11/22/12 23:18:00, Duration: 30 day, Stop date: 12/22/12 23:17:00 IVP No Longer Active [facility] 11/23/2012 [facility] acetaminophen 650 mg, 20.3 mL, Route: PO, Drug form: LIQ, Q4H, Dosing Weight 90.909, kg, PRN Pain 1-3/Temp > 100.4 F, Start date: 11/22/12 23:18:00, Duration: 30 day, Stop date: 12/22/12 23:17:00 PO No Longer Active [facility] 11/23/2012 [facility] aspirin 325 mg tablet 325 mg, 1 tab, Route: PO, Drug form: TAB, ONCE, Dosing Weight 90.909, kg, dysphagia screen first, Priority: STAT, Start date: 11/22/12 21:16:00, Stop date: 11/22/12 21:16:00 PO No Longer Active [facility] 11/23/2012 [facility] Allergies, Adverse Reactions, Alerts Substance Category Reaction Severity Reaction type Status Date Reported Comments Source Immunizations Immunization Date Given Site Status Last Updated Comments Source pneumococcal valent vaccine<sup>1</sup> 10/31/2017 completed [place] Location History: [facility] diphtheria/pertussis, acel/tetanus adult 06/26/2016 Right deltoid completed [facility], [facility] diphtheria/pertussis, acel/tetanus adult 06/26/2016 Right deltoid completed [facility] pneumococcal 23-valent vaccine 03/08/2016 Left deltoid completed [facility] pneumococcal 23-valent vaccine 03/08/2016 Left deltoid completed [facility] influenza virus vaccine, inactivated 03/04/2016 Left Deltoid completed [facility] influenza virus vaccine, inactivated 03/04/2016 Left Deltoid completed [facility] Results Order Name Results Value Reference Range Date Interpretation Comments Source Chest 2 views DX Chest 2 views DX Clinical Indication: - CP Comparison: 02/24/2018 FINDINGS: The PA and lateral chest radiographs shows normal lung volumes without interstitial or airspace opacities, pleural effusions or pneumothorax. The heart size and pulmonary vasculature are normal. The trachea is midline. There are no clinically significant osseous abnormalities noted. IMPRESSION: No chest radiographic evidence of acute cardiopulmonary disease. SL: [id number] - - Read by: Rickie Newman MD Dictated Date/time: 03/16/18 23:44 Electronically Signed by: Rickie Newman MD 03/16/18 23:44 FINAL REPORT [facility] Brain wo contrast CT Brain wo contrast CT Patient Name: NOHEMI HUNTER : 1970; Age: 47 years Male MR: [id number] Study: Brain wo contrast CT 02/24/2018 1:48 PM CDT Clinical Indication: - dizzy. Increasing dizziness and lightheadedness for last 24 hours. Bilateral leg soreness. COMPARISON: None TECHNIQUE: CT images were obtained from the foramen magnum to the vertex without the use of intravenous contrast on a multidetector CT. Coronal and sagittal reconstructions were obtained. CT imaging performed at this location utilizes radiation dose optimization techniques which include one or more of the following: -Automated exposure control -Adjustment of the mA and/or kV according to patient size -Use of iterative reconstruction technique CT Radiation Dose DLP 982.82 mGy-cm FINDINGS: BRAIN PARENCHYMA: There are normal cheung-white interfaces, sulci and gyri. There is no mass effect or midline shift. There is no extra-axial fluid collection, intraventricular or intraparenchymal hemorrhage. The sella and pineal regions are normal. The skull base, cerebellum and brainstem are normal. VENTRICLES: The ventricles are normal in size and configuration. The basilar cisterns are normal. ORBITS, MASTOIDS AND PARANASAL SINUSES: The visualized orbits are normal. The paranasal sinuses are normal. The mastoid air cells are clear. SKULL: There are no osseous abnormalities. If there is further concern for intracranial pathology or acute stroke, MRI of the brain may be performed for complete assessment. IMPRESSION: No acute intracranial bleed, midline shift or mass effect. SL: [id number] 02/24/2018 - - Read by: Radhames Chavez MD Dictated Date/time: 02/24/18 15:00 Electronically Signed by: Radhames Chavez MD 02/24/18 15:08 FINAL REPORT [facility] 1view DX Chest 1view DX Clinical Indication: - dizzy; Comparison: 01/23/2018 FINDINGS: AP chest radiographs shows normal lung volumes without interstitial or airspace opacities, pleural effusions or pneumothorax. The heart size and pulmonary vasculature are normal. The trachea is midline. There are no clinically significant osseous abnormalities noted. IMPRESSION: No chest radiographic evidence of acute cardiopulmonary disease. SL: [id number] 02/24/2018 - - Read by: Rickie Newman MD Dictated Date/time: 02/24/18 14:37 Electronically Signed by: Rickie Newman MD 02/24/18 14:37 FINAL REPORT [facility] 2 views DX Chest 2 views DX Clinical Indication: - r06.00 dyspnea, fever for 2 days Comparison: 12/07/2017 FINDINGS: The PA and lateral chest radiographs shows normal lung volumes without interstitial or airspace opacities, pleural effusions or pneumothorax. The cardiomediastinal contours are normal. The trachea is midline. There are no clinically significant osseous abnormalities noted. IMPRESSION: No chest radiographic evidence of acute cardiopulmonary abnormality. SL: [id number] 01/23/2018 - - Read by: Kiersten Bennett MD Dictated Date/time: 01/23/18 13:53 Electronically Signed by: Kiersten Bennett MD 01/23/18 13:53 FINAL REPORT [facility] URINE AND STOOL UA RBC null 0 - 2 12/07/2017 [facility] URINE AND STOOL UA WBC 2 /HPF 0 - 5 12/07/2017 [facility] URINE AND STOOL UA Nitrite Negative (12/07/17 9:59 AM) Negative 12/07/2017 [facility] URINE AND STOOL UA Blood Negative (12/07/17 9:59 AM) Negative 12/07/2017 [facility] URINE AND STOOL UA Bili Negative *NA* (12/07/17 9:59 AM) Negative 12/07/2017 [facility] URINE AND STOOL UA Ketones Negative mg/dL Negative mg/dL 12/07/2017 [facility] URINE AND STOOL UA Spec Grav 1.004 <=1.030 12/07/2017 [facility] URINE AND STOOL UA Protein Negative mg/dL Negative mg/dL 12/07/2017 [facility] URINE AND STOOL UA Leuk Est Negative (12/07/17 9:59 AM) Negative 12/07/2017 [facility] URINE AND STOOL UA pH 6.0 5.0 - 8.0 12/07/2017 [facility] URINE AND STOOL UA Glucose Negative mg/dL Negative mg/dL 12/07/2017 [facility] URINE AND STOOL UA Color Ltyellow 12/07/2017 [facility] URINE AND STOOL UA Sq Epi None Seen 12/07/2017 [facility] URINE AND STOOL UA Urobilinogen <=1.0 mg/dL 0.1 - 1.0 12/07/2017 [facility] URINE AND STOOL UA Turbidity Clear (12/07/17 9:59 AM) Clear 12/07/2017 [facility] CARDIAC ENZYMES CK MB Index 2.1 0.0 - 2.5 12/07/2017 [facility] CARDIAC ENZYMES Total CK 48 unit/L 12 - 191 12/07/2017 [facility] CARDIAC ENZYMES Troponin-I null 0.00 - 0.40 12/07/2017 [facility] CARDIAC ENZYMES CK MB 1.0 ng/mL 0.5 - 3.6 12/07/2017 [facility] CHEM PANEL Magnesium Lvl 2.2 mg/dL 1.8 - 2.4 12/07/2017 [facility] CHEM PANEL Phosphorus 3.0 mg/dL 2.5 - 4.5 12/07/2017 [facility] CHEM PANEL Lactic Acid Lvl 2.1 mMol/L 0.5 - 2.2 12/07/2017 [facility] CHEM PANEL Total Protein 7.5 g/dL 6.4 - 8.4 12/07/2017 [facility] CHEM PANEL Bili Total 0.5 mg/dL 0.2 - 1.3 12/07/2017 [facility] CHEM PANEL ALT 30 unit/L 0 - 65 12/07/2017 [facility] CHEM PANEL AST 9 unit/L 0 - 37 12/07/2017 [facility] CHEM PANEL Albumin Lvl 4.2 g/dL 3.5 - 5.0 12/07/2017 [facility] CHEM PANEL A/G Ratio 1.3 0.7 - 1.6 12/07/2017 [facility] CHEM PANEL Bili Indirect 0.3 mg/dL 0.0 - 1.0 12/07/2017 [facility] CHEM PANEL Bili Direct 0.2 mg/dL 0.0 - 0.3 12/07/2017 [facility] CHEM PANEL Alk Phos 61 unit/L 39 - 136 12/07/2017 [facility] CHEM PANEL Globulin 3.3 g/dL 2.7 - 4.2 12/07/2017 [facility] CHEM PANEL eGFR 87 mL/min/1.73m2 12/07/2017 Result Comment: The eGFR is calculated using the [...] from the National Kidney Disease Education Program (NKDEP) which additionally recommends that when the eGFR is used in patients with extremes of body mass index for purposes of drug dosing, the eGFR should be multiplied by the estimated BMI. [facility] CHEM PANEL CO2 28 meq/L 24 - 32 12/07/2017 [facility] CHEM PANEL Calcium Lvl 9.0 mg/dL 8.5 - 10.5 12/07/2017 [facility] CHEM PANEL AGAP 13.0 meq/L 10.0 - 20.0 12/07/2017 [facility] CHEM PANEL Creatinine Lvl 1.02 mg/dL 0.50 - 1.40 12/07/2017 [facility] CHEM PANEL Sodium Lvl 140 meq/L 135 - 145 12/07/2017 [facility] CHEM PANEL Potassium Lvl 4.0 meq/L 3.5 - 5.1 12/07/2017 [facility] CHEM PANEL Chloride Lvl 103 meq/L 95 - 109 12/07/2017 [facility] CHEM PANEL Glucose Lvl 150 mg/dL 70 - 99 12/07/2017 [facility] CHEM PANEL BUN 14 mg/dL 7 - 22 12/07/2017 [facility] Plt Morph Normal (12/07/17 9:48 AM) 12/07/2017 [facility] HEMATOLOGY Segs 88.0 % 45.0 - 75.0 12/07/2017 [facility] Monocytes 4.3 % 2.0 - 12.0 12/07/2017 [facility] Eosinophils 0.1 % 0.0 - 4.0 12/07/2017 [facility] Lymphocytes 7.4 % 20.0 - 40.0 12/07/2017 [facility] Basophils 0.2 % 0.0 - 1.0 12/07/2017 [facility] RBC Morph Normal (12/07/17 9:48 AM) 12/07/2017 [facility] Monocytes # 0.7 K/CMM 0.0 - 0.8 12/07/2017 [facility] Segs-Bands # 14.7 K/CMM 1.5 - 8.1 12/07/2017 [facility] Lymphocytes # 1.2 K/CMM 1.0 - 5.5 12/07/2017 [facility] Hgb 17.0 g/dL 14.0 - 18.0 12/07/2017 [facility] RBC 6.09 M/CMM 4.70 - 6.10 12/07/2017 [facility] WBC 16.7 K/CMM 3.7 - 10.4 12/07/2017 [facility] MCHC 33.1 g/dL 32.0 - 36.0 12/07/2017 [facility] MCH 27.9 pg 27.0 - 31.0 12/07/2017 [facility] Hct 51.4 % 42.0 - 54.0 12/07/2017 [facility] MCV 84.5 fL 80.0 - 94.0 12/07/2017 [facility] MPV 9.0 fL 7.4 - 10.4 12/07/2017 [facility] Platelet 230 K/CMM 133 - 450 12/07/2017 [facility] RDW 14.3 % 11.5 - 14.5 12/07/2017 [facility] Chest 2 views DX Chest 2 views DX CHEST TWO VIEW INDICATION: Chest pain with shortness of breath and weakness since this morning. COMPARISON: 09/14/2017 chest x-ray. FINDINGS: The lungs are clear. The pleura, cardiomediastinal silhouette and bony thorax are normal. IMPRESSION: Negative. END IMPRESSION SL: [id number] 12/07/2017 - - Read by: Stoney San MD Dictated Date/time: 12/07/17 10:08 Electronically Signed by: Stoney San MD 12/07/17 10:08 FINAL REPORT [facility] URINE AND STOOL UA Urobilinogen <=1.0 mg/dL 0.1 - 1.0 09/14/2017 [facility] URINE AND STOOL UA Color Ltyellow 09/14/2017 [facility] URINE AND STOOL UA Bacteria Occasional /HPF None Seen /HPF 09/14/2017 [facility] URINE AND STOOL UA WBC null 0 - 5 09/14/2017 [facility] URINE AND STOOL UA Leuk Est Negative (09/14/17 1:23 PM) Negative 09/14/2017 [facility] URINE AND STOOL UA Glucose Negative mg/dL Negative mg/dL 09/14/2017 [facility] URINE AND STOOL UA Protein Negative mg/dL Negative mg/dL 09/14/2017 [facility] URINE AND STOOL UA pH 7.0 5.0 - 8.0 09/14/2017 [facility] URINE AND STOOL UA Nitrite Negative (09/14/17 1:23 PM) Negative 09/14/2017 [facility] URINE AND STOOL UA Blood Negative (09/14/17 1:23 PM) Negative 09/14/2017 [facility] URINE AND STOOL UA Bili Negative *NA* (09/14/17 1:23 PM) Negative 09/14/2017 [facility] URINE AND STOOL UA Ketones Negative mg/dL Negative mg/dL 09/14/2017 [facility] URINE AND STOOL UA Sq Epi None Seen 09/14/2017 [facility] URINE AND STOOL UA Spec Grav 1.014 <=1.030 09/14/2017 [facility] URINE AND STOOL UA Turbidity Clear (09/14/17 1:23 PM) Clear 09/14/2017 [facility] CARDIAC ENZYMES CK MB 1.3 ng/mL 0.5 - 3.6 09/14/2017 [facility] CARDIAC ENZYMES Total CK 78 unit/L 12 - 191 09/14/2017 [facility] CARDIAC ENZYMES Troponin-I null 0.00 - 0.40 09/14/2017 [facility] CARDIAC ENZYMES CK MB Index 1.7 0.0 - 2.5 09/14/2017 [facility] CHEM PANEL Globulin 2.9 g/dL 2.7 - 4.2 09/14/2017 [facility] CHEM PANEL A/G Ratio 1.1 0.7 - 1.6 09/14/2017 [facility] CHEM PANEL B/C Ratio 20 6 - 25 09/14/2017 [facility] CHEM PANEL AGAP 10.5 meq/L 10.0 - 20.0 09/14/2017 [facility] CHEM PANEL AST 26 unit/L 0 - 37 09/14/2017 [facility] CHEM PANEL Alk Phos 68 unit/L 39 - 136 09/14/2017 [facility] CHEM PANEL Bili Total 0.3 mg/dL 0.2 - 1.3 09/14/2017 [facility] CHEM PANEL Albumin Lvl 3.1 g/dL 3.5 - 5.0 09/14/2017 [facility] CHEM PANEL ALT 100 unit/L 0 - 65 09/14/2017 [facility] CHEM PANEL CO2 29 meq/L 24 - 32 09/14/2017 [facility] CHEM PANEL Calcium Lvl 7.7 mg/dL 8.5 - 10.5 09/14/2017 [facility] CHEM PANEL Total Protein 6.0 g/dL 6.4 - 8.4 09/14/2017 [facility] CHEM PANEL Sodium Lvl 140 meq/L 135 - 145 09/14/2017 [facility] CHEM PANEL Potassium Lvl 3.5 meq/L 3.5 - 5.1 09/14/2017 [facility] CHEM PANEL Chloride Lvl 104 meq/L 95 - 109 09/14/2017 [facility] CHEM PANEL Creatinine Lvl 0.96 mg/dL 0.50 - 1.40 09/14/2017 [facility] CHEM PANEL BUN 19 mg/dL 7 - 22 09/14/2017 [facility] CHEM PANEL Glucose Lvl 115 mg/dL 70 - 99 09/14/2017 [facility] CHEM PANEL eGFR 93 mL/min/1.73m2 09/14/2017 Result Comment: The eGFR is calculated using the [...] from the National Kidney Disease Education Program (NKDEP) which additionally recommends that when the eGFR is used in patients with extremes of body mass index for purposes of drug dosing, the eGFR should be multiplied by the estimated BMI. [facility] HEMATOLOGY Smudge occasional 09/14/2017 [facility] Neut Vac Moderate *ABN* (09/14/17 12:48 PM) None Seen 09/14/2017 [facility] Lymphocytes # 5.4 K/CMM 1.0 - 5.5 09/14/2017 [facility] Segs-Bands # 19.0 K/CMM 1.5 - 8.1 09/14/2017 [facility] Lymphocytes 18.0 % 20.0 - 40.0 09/14/2017 [facility] Atypical Lymphs 3.0 % <=0.0 % 09/14/2017 [facility] Monocytes 5.0 % 2.0 - 12.0 09/14/2017 [facility] Plt Morph Normal (09/14/17 12:48 PM) 09/14/2017 [facility] Segs 74.0 % 45.0 - 75.0 09/14/2017 [facility] RBC Morph Normal (09/14/17 12:48 PM) 09/14/2017 [facility] Monocytes # 1.3 K/CMM 0.0 - 0.8 09/14/2017 [facility] Platelet 263 K/CMM 133 - 450 09/14/2017 [facility] RDW 13.3 % 11.5 - 14.5 09/14/2017 [facility] MPV 10.0 fL 7.4 - 10.4 09/14/2017 [facility] WBC 25.7 K/CMM 3.7 - 10.4 09/14/2017 [facility] RBC 5.67 M/CMM 4.70 - 6.10 09/14/2017 [facility] MCH 28.1 pg 27.0 - 31.0 09/14/2017 [facility] MCV 83.5 fL 80.0 - 94.0 09/14/2017 [facility] HEMATOLOGY MCHC 33.7 g/dL 32.0 - 36.0 09/14/2017 [facility] HEMATOLOGY Hct 47.3 % 42.0 - 54.0 09/14/2017 [facility] HEMATOLOGY Hgb 15.9 g/dL 14.0 - 18.0 09/14/2017 [facility] Chest 1view DX Chest 1view DX Study: Chest 1view DX portable 09/14/2017 1218 hours Clinical Indication: -Weakness one week Comparison: Chest 07/09/2017 FINDINGS: Image projection is lordotic. The heart and mediastinum are normal. The lungs are moderately inflated. No pneumonia, vascular congestion or pleural effusion is seen. The skeleton is not remarkable. IMPRESSION: No abnormality identified. SL: [id number] 09/14/2017 - - Read by: Isra Kearns MD Dictated Date/time: 09/14/17 12:42 Electronically Signed by: Isra Kearns MD 09/14/17 12:43 FINAL REPORT [facility] CARDIAC ENZYMES CK MB Index 0.7 0.0 - 2.5 07/10/2017 [facility] CARDIAC ENZYMES CK MB 0.8 ng/mL 0.5 - 3.6 07/10/2017 [facility] CARDIAC ENZYMES Total CK 123 unit/L 12 - 191 07/10/2017 [facility] CARDIAC ENZYMES Troponin-I null 0.00 - 0.40 07/10/2017 [facility] CHEM PANEL eGFR 105 mL/min/1.73m2 07/10/2017 Result Comment: The eGFR is calculated using the [...] from the National Kidney Disease Education Program (NKDEP) which additionally recommends that when the eGFR is used in patients with extremes of body mass index for purposes of drug dosing, the eGFR should be multiplied by the estimated BMI. [facility] CHEM PANEL Bili Total 0.2 mg/dL 0.2 - 1.3 07/10/2017 [facility] CHEM PANEL Alk Phos 82 unit/L 39 - 136 07/10/2017 [facility] CHEM PANEL AST 19 unit/L 0 - 37 07/10/2017 [facility] CHEM PANEL ALT 33 unit/L 0 - 65 07/10/2017 [facility] CHEM PANEL Albumin Lvl 4.0 g/dL 3.5 - 5.0 07/10/2017 [facility] CHEM PANEL Globulin 3.5 g/dL 2.7 - 4.2 07/10/2017 [facility] CHEM PANEL A/G Ratio 1.1 0.7 - 1.6 07/10/2017 [facility] CHEM PANEL AGAP 10.4 meq/L 10.0 - 20.0 07/10/2017 [facility] CHEM PANEL B/C Ratio 15 6 - 25 07/10/2017 [facility] CHEM PANEL Total Protein 7.5 g/dL 6.4 - 8.4 07/10/2017 [facility] CHEM PANEL Calcium Lvl 8.6 mg/dL 8.5 - 10.5 07/10/2017 [facility] CHEM PANEL Creatinine Lvl 0.81 mg/dL 0.50 - 1.40 07/10/2017 [facility] CHEM PANEL BUN 12 mg/dL 7 - 22 07/10/2017 [facility] CHEM PANEL CO2 25 meq/L 24 - 32 07/10/2017 [facility] CHEM PANEL Glucose Lvl 127 mg/dL 70 - 99 07/10/2017 [facility] CHEM PANEL Chloride Lvl 108 meq/L 95 - 109 07/10/2017 [facility] CHEM PANEL Potassium Lvl 3.4 meq/L 3.5 - 5.1 07/10/2017 [facility] CHEM PANEL Sodium Lvl 140 meq/L 135 - 145 07/10/2017 [facility] HEMATOLOGY Segs 69.6 % 45.0 - 75.0 07/10/2017 [facility] HEMATOLOGY Monocytes 7.1 % 2.0 - 12.0 07/10/2017 [facility] HEMATOLOGY Segs-Bands # 10.2 K/CMM 1.5 - 8.1 07/10/2017 [facility] HEMATOLOGY Basophils 0.6 % 0.0 - 1.0 07/10/2017 [facility] HEMATOLOGY Lymphocytes 20.4 % 20.0 - 40.0 07/10/2017 [facility] HEMATOLOGY Eosinophils 2.3 % 0.0 - 4.0 07/10/2017 [facility] HEMATOLOGY Monocytes # 1.0 K/CMM 0.0 - 0.8 07/10/2017 [facility] Basophils # 0.1 K/CMM 0.0 - 0.2 07/10/2017 [facility] Lymphocytes # 3.0 K/CMM 1.0 - 5.5 07/10/2017 [facility] Eosinophils # 0.3 K/CMM 0.0 - 0.5 07/10/2017 [facility] RBC 5.61 M/CMM 4.70 - 6.10 07/10/2017 [facility] MCV 82.7 fL 80.0 - 94.0 07/10/2017 [facility] WBC 14.7 K/CMM 3.7 - 10.4 07/10/2017 [facility] Hct 46.4 % 42.0 - 54.0 07/10/2017 [facility] Hgb 15.7 g/dL 14.0 - 18.0 07/10/2017 [facility] MCH 27.9 pg 27.0 - 31.0 07/10/2017 [facility] Platelet 247 K/CMM 133 - 450 07/10/2017 [facility] RDW 13.0 % 11.5 - 14.5 07/10/2017 [facility] MCHC 33.8 g/dL 32.0 - 36.0 07/10/2017 [facility] MPV 9.2 fL 7.4 - 10.4 07/10/2017 [facility] Chest Pulmonary Embolism CTA Chest Pulmonary Embolism CTA Clinical Indication: - r/o PE Comparison: None TECHNIQUE: Sequential trans-axial images were obtained thru the chest and upper abdomen after administration of iodinated contrast. Coronal and sagittal reconstructions were obtained. 100 cc of nonionic contrast material was used for the exam.addendum: 3 D volume rendered images were also performed Dose: DLP=DLP: 924.46 mGy-cm FINDINGS: LUNG PARENCHYMA AND PLEURA: There are no lung nodules. There is no significant interstitial lung disease. There are no pleural effusions. There is no pneumothorax. AIRWAY: The central airway is normal. MEDIASTINUM: No significant mediastinal lymphadenopathy. HEART: There is no pulmonary emboli identified in the visualized pulmonary arteries.The cardiac chambers are otherwise unremarkable. There is no pericardial effusion. VASCULAR STRUCTURES: The pulmonary arteries and great vessels are unremarkable. The thoracic aorta is within normal limits. The superior vena cava is unremarkable. OSSEOUS STRUCTURES: There are no significant osseous abnormalities seen. VISUALIZED UPPER ABDOMEN: The visualized upper abdomen is within normal limits. IMPRESSION: Chest CT with contrast within normal limits. No evidence for pulmonary embolism. SL: NANCY 07/10/2017 - - Read by: Palomo Escobedo MD Dictated Date/time: 07/10/17 02:33 Electronically Signed by: Palomo Escobedo MD 07/10/17 02:58 FINAL REPORT [facility] Chest 1view DX Chest 1view DX Chest, single view dated 07/09/2017. HISTORY: Acute chest pain. Comparison is made to a prior study dated 03/01/2017. The heart is normal in size. The cardiomediastinal shadow appears within normal limits. The lungs appear clear of acute disease. A 8 mm faint nodular opacity is noted to project in the right midlung over the anterior right 4th rib. A 2nd nodular opacity is noted to project over the anterior right 5th rib, possibly representing a nipple shadow. The pulmonary vasculature appears normal in caliber. No acute pleural space abnormalities are identified. IMPRESSION: 1. No radiographic evidence of acute cardiopulmonary disease. 2. An indeterminate 8 mm nodular opacity projects in the periphery of the right midlung. A CT of the chest with contrast should be considered for further evaluation. SL: 131 07/09/2017 - - Read by: Roger Turner MD Dictated Date/time: 07/09/17 23:23 Electronically Signed by: Roger Turner MD 07/09/17 23:28 FINAL REPORT [facility] CARDIAC ENZYMES Troponin-I null 0.00 - 0.40 03/01/2017 [facility] CARDIAC ENZYMES BNP null <=100 pg/mL 03/01/2017 [facility] CARDIAC ENZYMES Total CK 122 unit/L 12 - 191 03/01/2017 [facility] CARDIAC ENZYMES CK MB 0.9 ng/mL 0.5 - 3.6 03/01/2017 [facility] CARDIAC ENZYMES CK MB Index 0.7 0.0 - 2.5 03/01/2017 [facility] CHEM PANEL Magnesium Lvl 2.1 mg/dL 1.8 - 2.4 03/01/2017 [facility] CHEM PANEL Phosphorus 3.9 mg/dL 2.5 - 4.5 03/01/2017 [facility] CHEM PANEL eGFR 103 mL/min/1.73m2 03/01/2017 Result Comment: The eGFR is calculated using the [...] from the National Kidney Disease Education Program (NKDEP) which additionally recommends that when the eGFR is used in patients with extremes of body mass index for purposes of drug dosing, the eGFR should be multiplied by the estimated BMI. [facility] CHEM PANEL ALT 31 unit/L 0 - 65 03/01/2017 [facility] CHEM PANEL AST 17 unit/L 0 - 37 03/01/2017 [facility] CHEM PANEL Alk Phos 79 unit/L 39 - 136 03/01/2017 [facility] CHEM PANEL A/G Ratio 1.1 0.7 - 1.6 03/01/2017 [facility] CHEM PANEL Albumin Lvl 3.9 g/dL 3.5 - 5.0 03/01/2017 [facility] CHEM PANEL Total Protein 7.5 g/dL 6.4 - 8.4 03/01/2017 [facility] CHEM PANEL Bili Total 0.7 mg/dL 0.2 - 1.3 03/01/2017 [facility] CHEM PANEL AGAP 13.8 meq/L 10.0 - 20.0 03/01/2017 [facility] CHEM PANEL B/C Ratio 13 6 - 25 03/01/2017 [facility] CHEM PANEL Globulin 3.6 g/dL 2.7 - 4.2 03/01/2017 [facility] CHEM PANEL BUN 11 mg/dL 7 - 22 03/01/2017 [facility] CHEM PANEL Glucose Lvl 102 mg/dL 70 - 99 03/01/2017 [facility] CHEM PANEL Calcium Lvl 8.6 mg/dL 8.5 - 10.5 03/01/2017 [facility] CHEM PANEL CO2 22 meq/L 24 - 32 03/01/2017 [facility] CHEM PANEL Chloride Lvl 105 meq/L 95 - 109 03/01/2017 [facility] CHEM PANEL Sodium Lvl 137 meq/L 135 - 145 03/01/2017 [facility] CHEM PANEL Potassium Lvl 3.8 meq/L 3.5 - 5.1 03/01/2017 [facility] CHEM PANEL Creatinine Lvl 0.86 mg/dL 0.50 - 1.40 03/01/2017 [facility] HEMATOLOGY D-Dimer null 03/01/2017 [facility] HEMATOLOGY INR 1.04 0.85 - 1.17 03/01/2017 [facility] HEMATOLOGY PT 13.6 s 12.0 - 14.7 03/01/2017 [facility] HEMATOLOGY PTT 33.2 s 22.9 - 35.8 03/01/2017 [facility] HEMATOLOGY Hgb 16.1 g/dL 14.0 - 18.0 03/01/2017 [facility] MCH 28.4 pg 27.0 - 31.0 03/01/2017 [facility] HEMATOLOGY MCV 83.1 fL 80.0 - 94.0 03/01/2017 [facility] HEMATOLOGY Hct 47.2 % 42.0 - 54.0 03/01/2017 [facility] Platelet 213 K/CMM 133 - 450 03/01/2017 [facility] MPV 9.3 fL 7.4 - 10.4 03/01/2017 [facility] MCHC 34.2 g/dL 32.0 - 36.0 03/01/2017 [facility] RDW 13.0 % 11.5 - 14.5 03/01/2017 [facility] HEMATOLOGY RBC 5.68 M/CMM 4.70 - 6.10 03/01/2017 [facility] HEMATOLOGY WBC 10.9 K/CMM 3.7 - 10.4 03/01/2017 [facility] HEMATOLOGY Basophils # 0.1 K/CMM 0.0 - 0.2 03/01/2017 [facility] HEMATOLOGY Basophils 1.0 % 0.0 - 1.0 03/01/2017 [facility] HEMATOLOGY Segs-Bands # 6.4 K/CMM 1.5 - 8.1 03/01/2017 [facility] HEMATOLOGY Lymphocytes # 2.7 K/CMM 1.0 - 5.5 03/01/2017 [facility] HEMATOLOGY Monocytes # 1.3 K/CMM 0.0 - 0.8 03/01/2017 [facility] HEMATOLOGY Eosinophils # 0.4 K/CMM 0.0 - 0.5 03/01/2017 [facility] HEMATOLOGY Segs 58.7 % 45.0 - 75.0 03/01/2017 [facility] HEMATOLOGY Lymphocytes 25.1 % 20.0 - 40.0 03/01/2017 [facility] HEMATOLOGY Eosinophils 3.7 % 0.0 - 4.0 03/01/2017 [facility] HEMATOLOGY Monocytes 11.5 % 2.0 - 12.0 03/01/2017 [facility] Chest 2 views DX Chest 2 views DX Clinical Indication: - dyspnea Comparison: November 04, 2016 FINDINGS: The PA and lateral chest radiographs shows normal lung volumes without interstitial or airspace opacities, pleural effusions or pneumothorax. Faint nodular opacity measuring approximately 7 mm in diameter is noted in the right lower lung just inferior to the fifth anterior rib. Peribronchial thickening is present. The cardiomediastinal contours are normal. The trachea is midline. There are no clinically significant osseous abnormalities noted. IMPRESSION: 1. Peribronchial thickening is present, suggestive of bronchitis. 2. 7 mm nodule in the right lower lung may or may not have been present on previous examination. In view of the small size and relatively clear visualization, this is most likely a calcified granuloma, but follow-up is recommended for confirmation. 3. No definite chest radiographic evidence of acute cardiopulmonary disease. SL: 82 03/01/2017 - - Read by: Jorge Mcgowan MD Dictated Date/time: 03/01/17 03:17 Electronically Signed by: Jorge Mcgowan MD 03/01/17 03:25 FINAL REPORT [facility] Chest 2 views DX Chest 2 views DX Patient Name: NOHEMI HUNTER : 1970; Age: 46 years y/o Male MR: [id number] Study: Chest 2 views DX 11/04/2016 10:12 AM CDT Ordering Physician: Clinical Indication: - J20.9 Acute bronchitis, unspecified; Comparison: 12/10/2015 2 views chest The lungs are clear. Cardiomediastinal silhouette normal. Pulmonary vasculature is normal. There is no pleural effusion or pneumothorax. No bony abnormality. IMPRESSION: Negative. SL: [id number] 11/04/2016 - - Read by: Gallo Guy MD Dictated Date/time: 11/04/16 10:45 Electronically Signed by: Gallo Guy MD 11/04/16 10:46 FINAL REPORT [facility] HEMATOLOGY Hgb 15.7 g/dL 14.0 - 18.0 03/08/2016 [facility] CARDIAC ENZYMES Troponin-I null 0.00 - 0.40 03/08/2016 [facility] CARDIAC ENZYMES Total CK 128 unit/L 12 - 191 03/08/2016 [facility] CARDIAC ENZYMES CK MB Index 0.8 0.0 - 2.5 03/08/2016 [facility] CARDIAC ENZYMES CK MB 1.0 ng/mL 0.5 - 3.6 03/08/2016 [facility] CARDIAC ENZYMES Total CK 132 unit/L 12 - 191 03/08/2016 [facility] CARDIAC ENZYMES Troponin-I null 0.00 - 0.40 03/08/2016 [facility] CARDIAC ENZYMES CK MB Index 0.8 0.0 - 2.5 03/08/2016 [facility] CARDIAC ENZYMES CK MB 1.0 ng/mL 0.5 - 3.6 03/08/2016 [facility] CARDIAC ENZYMES Troponin-I null 0.00 - 0.40 03/08/2016 [facility] CARDIAC ENZYMES CK MB 0.9 ng/mL 0.5 - 3.6 03/08/2016 [facility] CARDIAC ENZYMES Total CK 154 unit/L 12 - 191 03/08/2016 [facility] CHEM PANEL eGFR 90 mL/min/1.73m2 03/08/2016 Result Comment: The eGFR is calculated using the [...] from the National Kidney Disease Education Program (NKDEP) which additionally recommends that when the eGFR is used in patients with extremes of body mass index for purposes of drug dosing, the eGFR should be multiplied by the estimated BMI. [facility] CHEM PANEL Calcium Lvl 8.4 mg/dL 8.5 - 10.5 03/08/2016 [facility] CHEM PANEL Chloride Lvl 104 meq/L 95 - 109 03/08/2016 [facility] CHEM PANEL CO2 23 meq/L 24 - 32 03/08/2016 [facility] CHEM PANEL Potassium Lvl 3.5 meq/L 3.5 - 5.1 03/08/2016 [facility] CHEM PANEL Sodium Lvl 137 meq/L 135 - 145 03/08/2016 [facility] CHEM PANEL Glucose Lvl 143 mg/dL 70 - 99 03/08/2016 [facility] CHEM PANEL Creatinine Lvl 1.00 mg/dL 0.50 - 1.40 03/08/2016 [facility] CHEM PANEL BUN 10 mg/dL 7 - 22 03/08/2016 [facility] CHEM PANEL AGAP 13.5 meq/L 10.0 - 20.0 03/08/2016 [facility] CHEM PANEL Bili Indirect 0.3 mg/dL 0.0 - 1.0 03/08/2016 [facility] CHEM PANEL Bili Total 0.4 mg/dL 0.2 - 1.3 03/08/2016 [facility] CHEM PANEL Bili Direct 0.1 mg/dL 0.0 - 0.3 03/08/2016 [facility] CHEM PANEL Alk Phos 71 unit/L 39 - 136 03/08/2016 [facility] CHEM PANEL AST 24 unit/L 0 - 37 03/08/2016 [facility] CHEM PANEL ALT 36 unit/L 0 - 65 03/08/2016 [facility] CHEM PANEL A/G Ratio 1.3 0.7 - 1.6 03/08/2016 [facility] CHEM PANEL Total Protein 7.1 g/dL 6.4 - 8.4 03/08/2016 [facility] CHEM PANEL Albumin Lvl 4.0 g/dL 3.5 - 5.0 03/08/2016 [facility] CHEM PANEL Globulin 3.1 g/dL 2.7 - 4.2 03/08/2016 [facility] CHEM PANEL Magnesium Lvl 2.2 mg/dL 1.8 - 2.4 03/08/2016 [facility] HEMATOLOGY INR 1.01 0.85 - 1.17 03/08/2016 [facility] HEMATOLOGY PTT 30.0 s 22.9 - 35.8 03/08/2016 [facility] HEMATOLOGY PT 13.5 s 12.0 - 14.7 03/08/2016 [facility] HEMATOLOGY Platelet 203 K/CMM 133 - 450 03/08/2016 [facility] HEMATOLOGY MPV 10.0 fL 7.4 - 10.4 03/08/2016 [facility] HEMATOLOGY MCHC 33.7 g/dL 32.0 - 36.0 03/08/2016 [facility] HEMATOLOGY RDW 13.1 % 11.5 - 14.5 03/08/2016 [facility] HEMATOLOGY MCH 27.9 pg 27.0 - 31.0 03/08/2016 [facility] HEMATOLOGY Hct 46.2 % 42.0 - 54.0 03/08/2016 [facility] HEMATOLOGY MCV 82.7 fL 80.0 - 94.0 03/08/2016 [facility] HEMATOLOGY Hgb 15.6 g/dL 14.0 - 18.0 03/08/2016 [facility] HEMATOLOGY RBC 5.58 M/CMM 4.70 - 6.10 03/08/2016 [facility] HEMATOLOGY WBC 11.4 K/CMM 3.7 - 10.4 03/08/2016 [facility] HEMATOLOGY Segs 66.1 % 45.0 - 75.0 03/08/2016 [facility] HEMATOLOGY Lymphocytes 25.3 % 20.0 - 40.0 03/08/2016 [facility] HEMATOLOGY Monocytes 5.2 % 2.0 - 12.0 03/08/2016 [facility] HEMATOLOGY Basophils 0.4 % 0.0 - 1.0 03/08/2016 [facility] HEMATOLOGY Segs-Bands # 7.5 K/CMM 1.5 - 8.1 03/08/2016 [facility] HEMATOLOGY Eosinophils 3.0 % 0.0 - 4.0 03/08/2016 [facility] HEMATOLOGY Monocytes # 0.6 K/CMM 0.0 - 0.8 03/08/2016 [facility] HEMATOLOGY Eosinophils # 0.3 K/CMM 0.0 - 0.5 03/08/2016 [facility] HEMATOLOGY Lymphocytes # 2.9 K/CMM 1.0 - 5.5 03/08/2016 [facility] LIPIDS VLDL 70 03/08/2016 [facility] LIPIDS LDL (Calculated) 82 mg/dL <=99 mg/dL 03/08/2016 [facility] LIPIDS Chol 177 mg/dL <=199 mg/dL 03/08/2016 [facility] LIPIDS Trig 350 mg/dL <=149 mg/dL 03/08/2016 [facility] LIPIDS HDL 25 mg/dL >=61 mg/dL 03/08/2016 [facility] LIPIDS CHD Risk 7.08 4.00 - 7.30 03/08/2016 [facility] SPECIAL CHEMISTRY Hgb A1C 5.3 % <=5.6 % 03/08/2016 [facility] CARDIAC ENZYMES CK MB Index 0.5 0.0 - 2.5 12/11/2015 [facility] CARDIAC ENZYMES Total CK 164 unit/L 12 - 191 12/11/2015 [facility] CARDIAC ENZYMES CK MB 0.8 ng/mL 0.5 - 3.6 12/11/2015 [facility] CARDIAC ENZYMES Troponin-I null 0.00 - 0.40 12/11/2015 [facility] CHEM PANEL eGFR 67 mL/min/1.73m2 12/11/2015 Result Comment: The eGFR is calculated using the [...] from the National Kidney Disease Education Program (NKDEP) which additionally recommends that when the eGFR is used in patients with extremes of body mass index for purposes of drug dosing, the eGFR should be multiplied by the estimated BMI. [facility] CHEM PANEL Albumin Lvl 4.0 g/dL 3.5 - 5.0 12/11/2015 [facility] CHEM PANEL ALT 28 unit/L 0 - 65 12/11/2015 [facility] CHEM PANEL A/G Ratio 1.3 0.7 - 1.6 12/11/2015 [facility] CHEM PANEL AGAP 7.6 meq/L 10.0 - 20.0 12/11/2015 [facility] CHEM PANEL B/C Ratio 9 6 - 25 12/11/2015 [facility] CHEM PANEL Globulin 3.0 g/dL 2.7 - 4.2 12/11/2015 [facility] CHEM PANEL Total Protein 7.0 g/dL 6.4 - 8.4 12/11/2015 [facility] CHEM PANEL Calcium Lvl 8.3 mg/dL 8.5 - 10.5 12/11/2015 [facility] CHEM PANEL CO2 28 meq/L 24 - 32 12/11/2015 [facility] CHEM PANEL Chloride Lvl 106 meq/L 95 - 109 12/11/2015 [facility] CHEM PANEL Bili Total 0.3 mg/dL 0.2 - 1.3 12/11/2015 [facility] CHEM PANEL Alk Phos 70 unit/L 39 - 136 12/11/2015 [facility] CHEM PANEL AST 16 unit/L 0 - 37 12/11/2015 [facility] CHEM PANEL Potassium Lvl 3.6 meq/L 3.5 - 5.1 12/11/2015 [facility] CHEM PANEL Glucose Lvl 94 mg/dL 70 - 99 12/11/2015 [facility] CHEM PANEL Sodium Lvl 138 meq/L 135 - 145 12/11/2015 [facility] CHEM PANEL Creatinine Lvl 1.28 mg/dL 0.50 - 1.40 12/11/2015 [facility] CHEM PANEL BUN 11 mg/dL 7 - 22 12/11/2015 [facility] HEMATOLOGY Basophils # 0.1 K/CMM 0.0 - 0.2 12/11/2015 [facility] HEMATOLOGY Eosinophils 2.1 % 0.0 - 4.0 12/11/2015 [facility] HEMATOLOGY Basophils 0.6 % 0.0 - 1.0 12/11/2015 [facility] HEMATOLOGY Segs-Bands # 8.7 K/CMM 1.5 - 8.1 12/11/2015 [facility] HEMATOLOGY Lymphocytes # 3.1 K/CMM 1.0 - 5.5 12/11/2015 [facility] HEMATOLOGY Monocytes # 1.1 K/CMM 0.0 - 0.8 12/11/2015 [facility] HEMATOLOGY Monocytes 8.4 % 2.0 - 12.0 12/11/2015 [facility] HEMATOLOGY Lymphocytes 23.0 % 20.0 - 40.0 12/11/2015 [facility] HEMATOLOGY Segs 65.9 % 45.0 - 75.0 12/11/2015 [facility] HEMATOLOGY Eosinophils # 0.3 K/CMM 0.0 - 0.5 12/11/2015 [facility] HEMATOLOGY MCV 83.3 fL 80.0 - 94.0 12/11/2015 [facility] HEMATOLOGY MCHC 33.0 g/dL 32.0 - 36.0 12/11/2015 [facility] HEMATOLOGY MCH 27.5 pg 27.0 - 31.0 12/11/2015 [facility] HEMATOLOGY Platelet 199 K/CMM 133 - 450 12/11/2015 [facility] HEMATOLOGY RDW 13.0 % 11.5 - 14.5 12/11/2015 [facility] HEMATOLOGY MPV 9.0 fL 7.4 - 10.4 12/11/2015 [facility] HEMATOLOGY WBC 13.3 K/CMM 3.7 - 10.4 12/11/2015 [facility] HEMATOLOGY Hct 46.7 % 42.0 - 54.0 12/11/2015 [facility] HEMATOLOGY Hgb 15.4 g/dL 14.0 - 18.0 12/11/2015 [facility] HEMATOLOGY RBC 5.60 M/CMM 4.70 - 6.10 12/11/2015 [facility] Chest 1view DX Chest 1view DX Study: Chest 1view DX portable 12/10/2015 2105 hours Clinical Indication: Chest pain; shortness of breath Comparison: Chest 11/14/2012 FINDINGS: Image projection is lordotic. Heart and mediastinum are normal. The lungs are clear. No pleural effusion is seen. IMPRESSION: No acute abnormality or change. SL: [id number] 12/10/2015 - - Read by: Isra Kearns MD Dictated Date/time: 12/10/15 21:51 Electronically Signed by: Isra Kearns MD 12/10/15 21:52 FINAL REPORT [facility] Sinus paranasal series Sinus paranasal series PARANASAL SINUSES (4 views) HISTORY: Facial pressure and pain. COMMENT: Frontal ([place]), [place]', lateral, and submental-vertex views of the paranasal sinuses were obtained. FINDINGS: 1. Mild mucosal thickening along the inferior wall the right maxillary sinus consistent mild right maxillary sinusitis. There may be minimal mucosal thickening along the inferior lateral wall the left maxillary sinus. There is no fluid. 2. The remainder of the paranasal sinuses appear to be clear. It is noted the right frontal sinus is hypoplastic. 3. No destructive lesions. CONCLUSION: 1. Probable mild chronic bilateral maxillary sinusitis. Coding: Sinus paranasal series CPT code: 11041 SL: 13 Everardo Howell M.D. 09/09/2013 - - Read by: Everardo Howell MD Dictated Date/time: 09/10/13 08:03 Electronically Signed by: Everardo Howell MD 09/10/13 08:05 FINAL REPORT [facility] CHEMISTRY CK MB Index null 0.0 - 2.5 11/23/2012 Normal [facility] CHEMISTRY Magnesium Lvl 1.9 mg/dL 1.8 - 2.4 11/23/2012 Normal [facility] CHEMISTRY CK MB null 0.5 - 3.6 11/23/2012 Normal [facility] CHEMISTRY Phosphorus 4.7 mg/dL 2.5 - 4.5 11/23/2012 [facility] CHEMISTRY Total CK 87 unit/L 12 - 191 11/23/2012 Normal [facility] CHEMISTRY LDL 80 mg/dL <=99 11/23/2012 Normal [facility] CHEMISTRY Trig 208 mg/dL <=149 11/23/2012 [facility] CHEMISTRY Chol 146 mg/dL <=199 11/23/2012 Normal [facility] CHEMISTRY HDL 24 mg/dL >=61 11/23/2012 LOW [facility] CHEMISTRY CHD Risk 6.08 4.00 - 7.30 11/23/2012 Normal [facility] CHEMISTRY Troponin-I null 0.00 - 0.40 11/23/2012 Normal [facility] HEMATOLOGY Segs 52.8 % 45.0 - 75.0 11/23/2012 Normal [facility] HEMATOLOGY Lymphocytes 36.7 % 20.0 - 40.0 11/23/2012 [facility] HEMATOLOGY Monocytes 7.2 % 2.0 - 12.0 11/23/2012 [facility] HEMATOLOGY Eosinophils 3.1 % 0.0 - 4.0 11/23/2012 [facility] HEMATOLOGY Basophils 0.2 % 0.0 - 1.0 11/23/2012 Normal [facility] HEMATOLOGY Monocytes # 0.9 K/CMM 0.0 - 0.8 11/23/2012 [facility] HEMATOLOGY Eosinophils # 0.4 K/CMM 0.0 - 0.5 11/23/2012 Normal [facility] HEMATOLOGY Segs-Bands # 6.5 K/CMM 1.5 - 8.1 11/23/2012 Normal [facility] HEMATOLOGY Lymphocytes # 4.5 K/CMM 1.0 - 5.5 11/23/2012 Normal [facility] HEMATOLOGY Basophils # 0.0 K/CMM 0.0 - 0.2 11/23/2012 Normal [facility] HEMATOLOGY RDW 13.2 % 11.5 - 14.5 11/23/2012 Normal [facility] HEMATOLOGY Platelet 208 K/CMM 133 - 450 11/23/2012 Normal [facility] HEMATOLOGY MPV 9.5 fL 7.4 - 10.4 11/23/2012 Normal [facility] HEMATOLOGY MCHC 33.2 g/dL 32.0 - 36.0 11/23/2012 Normal [facility] HEMATOLOGY Hgb 15.7 g/dL 14.0 - 18.0 11/23/2012 Normal [facility] HEMATOLOGY Hct 47.4 % 42.0 - 54.0 11/23/2012 Normal [facility] HEMATOLOGY MCV 85.3 fL 80.0 - 94.0 11/23/2012 Normal [facility] HEMATOLOGY MCH 28.3 pg 27.0 - 31.0 11/23/2012 Normal [facility] HEMATOLOGY WBC 12.3 K/CMM 3.7 - 10.4 11/23/2012 HI [facility] HEMATOLOGY RBC 5.56 M/CMM 4.70 - 6.10 11/23/2012 Normal [facility] Cardiac SPECT multi studies NM Cardiac SPECT multi studies NM PROCEDURE: Stress MYOCARDIAL PERFUSION SCAN with Lexiscan INDICATION: Chest pain PROTOCOL: The patient underwent Lexiscan study using one day protocol. 0.5 mg of Lexiscan was injected over 1 minute. Please see cardiology report for EKG and physiologic response to the pharmacologic stress test. The patient received 11 mCi of 99mTc Sestamibi for the resting images, and 31 mCi of 99mTc Sestamibi for the stress images. Gated SPECT images were obtained after stress injection. FINDINGS: Images obtained after stress and rest injection of tracer show normal tracer distribution in the LV myocardium with no evidence of reversible ischemia. LV size appears normal. Gated images obtained at stress injection show normal LV wall motion and thickening. The QGS LVEF IS 65%. IMPRESSION: Normal perfusion study. Normal resting LV function. Reading Location: [facility] 11/23/2012 - - Read by: Malia Soto Dictated Date/time: 11/23/12 10:58 Electronically Signed by: Malia Soto MD 11/23/12 10:58 FINAL REPORT [facility] CHEMISTRY CK MB 0.7 ng/mL 0.5 - 3.6 11/23/2012 Normal [facility] CHEMISTRY Total CK 99 unit/L 12 - 191 11/23/2012 Normal [facility] CHEMISTRY Troponin-I null 0.00 - 0.40 11/23/2012 Normal [facility] CHEMISTRY eGFR 92 mL/min/1.73m2 11/23/2012 NA 1Result Comment: The eGFR is calculated using [...] from the National Kidney Disease Education Program (NKDEP) which additionally recommends that when the eGFR is used in patients with extremes of body mass index for purposes of drug dosing, the eGFR should be multiplied by the estimated BMI. [facility] CHEMISTRY Globulin 3.3 g/dL 2.0 - 4.0 11/23/2012 Normal [facility] CHEMISTRY B/C Ratio 10 6 - 25 11/23/2012 Normal [facility] CHEMISTRY Alk Phos 77 unit/L 39 - 136 11/23/2012 Normal [facility] CHEMISTRY Calcium Lvl 8.2 mg/dL 8.5 - 10.5 11/23/2012 LOW [facility] CHEMISTRY Albumin Lvl 3.9 g/dL 3.5 - 5.0 11/23/2012 Normal [facility] CHEMISTRY Total Protein 7.2 g/dL 6.4 - 8.4 11/23/2012 Normal [facility] CHEMISTRY ALT 30 unit/L 0 - 65 11/23/2012 Normal [facility] CHEMISTRY A/G Ratio 1.2 0.7 - 1.6 11/23/2012 Normal [facility] CHEMISTRY AGAP 14.5 meq/L 10.0 - 20.0 11/23/2012 Normal [facility] CHEMISTRY Bili Total null 0.2 - 1.3 11/23/2012 LOW [facility] CHEMISTRY AST 18 unit/L 0 - 37 11/23/2012 Normal [facility] CHEMISTRY BUN 10 mg/dL 7 - 22 11/23/2012 Normal [facility] CHEMISTRY Creatinine Lvl 1.0 mg/dL 0.5 - 1.4 11/23/2012 Normal [facility] CHEMISTRY CO2 23 meq/L 24 - 32 11/23/2012 LOW [facility] CHEMISTRY Glucose Lvl 130 mg/dL 70 - 99 11/23/2012 [facility] 2Interpretive Data: Adult reference range values reflect the clinical guidelines of the [place] [employer]. [facility] CHEMISTRY Sodium Lvl 142 meq/L 135 - 145 11/23/2012 Normal [facility] CHEMISTRY Potassium Lvl 3.5 meq/L 3.5 - 5.1 11/23/2012 Normal [facility] CHEMISTRY Chloride Lvl 108 meq/L 95 - 109 11/23/2012 Normal [facility] CHEMISTRY CK MB Index 0.7 0.0 - 2.5 11/23/2012 Normal [facility] CHEMISTRY Lipase Lvl 234 unit/L 73 - 393 11/23/2012 Normal [facility] CHEMISTRY Amylase Lvl 29 unit/L 25 - 115 11/23/2012 Normal [facility] HEMATOLOGY Platelet 219 K/CMM 133 - 450 11/23/2012 Normal [facility] HEMATOLOGY MPV 9.9 fL 7.4 - 10.4 11/23/2012 Normal [facility] HEMATOLOGY RDW 12.9 % 11.5 - 14.5 11/23/2012 Normal [facility] HEMATOLOGY MCHC 33.2 g/dL 32.0 - 36.0 11/23/2012 Normal [facility] HEMATOLOGY Hgb 15.5 g/dL 14.0 - 18.0 11/23/2012 Normal [facility] HEMATOLOGY Hct 46.8 % 42.0 - 54.0 11/23/2012 Normal [facility] HEMATOLOGY MCV 84.8 fL 80.0 - 94.0 11/23/2012 Normal [facility] HEMATOLOGY MCH 28.1 pg 27.0 - 31.0 11/23/2012 Normal [facility] HEMATOLOGY RBC 5.52 M/CMM 4.70 - 6.10 11/23/2012 Normal [facility] HEMATOLOGY WBC 12.9 K/CMM 3.7 - 10.4 11/23/2012 HI [facility] HEMATOLOGY Basophils 0.5 % 0.0 - 1.0 11/23/2012 Normal [facility] HEMATOLOGY Eosinophils 2.7 % 0.0 - 4.0 11/23/2012 Normal [facility] HEMATOLOGY Segs-Bands # 7.8 K/CMM 1.5 - 8.1 11/23/2012 Normal [facility] HEMATOLOGY Lymphocytes # 3.7 K/CMM 1.0 - 5.5 11/23/2012 Normal [facility] HEMATOLOGY Eosinophils # 0.3 K/CMM 0.0 - 0.5 11/23/2012 Normal [facility] HEMATOLOGY Monocytes # 0.9 K/CMM 0.0 - 0.8 11/23/2012 [facility] HEMATOLOGY Basophils # 0.1 K/CMM 0.0 - 0.2 11/23/2012 Normal [facility] HEMATOLOGY Segs 60.9 % 45.0 - 75.0 11/23/2012 Normal [facility] HEMATOLOGY Lymphocytes 29.1 % 20.0 - 40.0 11/23/2012 Normal [facility] HEMATOLOGY Monocytes 6.8 % 2.0 - 12.0 11/23/2012 Normal [facility] Chest 2 views Chest 2 views EXAM: Chest 2 views HISTORY: Dyspnea. Comparison 07/13/2009. TECHNIQUE: Frontal and lateral views of the chest. FINDINGS: Possible COPD. No definite pneumonia, pulmonary edema or pleural effusion. Heart size normal. SL: 14 11/22/2012 - - Read by: Syed Aponte Date/time: 11/22/12 21:49 Electronically Signed by: Syed Aponte MD 11/22/12 21:51 FINAL REPORT [facility] Vital Signs Vital Sign Value Date Comments Source Systolic (mm Hg) 153 12/07/2017 [facility] Diastolic (mm Hg) 87 12/07/2017 [facility] Systolic (mm Hg) 140 12/07/2017 [facility] Diastolic (mm Hg) 83 12/07/2017 [facility] Respitory Rate 16 12/07/2017 [facility] Respitory Rate 23 12/07/2017 [facility] Respitory Rate 23 12/07/2017 [facility] BMI Calculated 37.88 12/07/2017 [facility] Weight 116.364 12/07/2017 [facility] Heart Rate 77 12/07/2017 [facility] Systolic (mm Hg) 172 12/07/2017 [facility] Diastolic (mm Hg) 88 12/07/2017 [facility] Temperature Oral (F) 97.9 F 12/07/2017 [facility] Height 175.26 cm 12/07/2017 [facility] BMI Calculated 37.74 11/17/[facility] Weight 115.909 11/17/[facility] Height 175.26 cm 11/17/2017 [facility] Heart Rate 79 11/17/2017 [facility] Temperature Oral (F) 98.4 F 11/17/2017 [facility] Systolic (mm Hg) 143 11/17/2017 [facility] Diastolic (mm Hg) 90 11/17/2017 [facility] Height 175.26 cm 10/09/2017 [facility] BMI Calculated 36.31 10/09/2017 [facility] Weight 111.534 10/09/2017 [facility] Temperature Oral (F) 97.4 F 10/09/2017 [facility] Systolic (mm Hg) 149 10/09/2017 [facility] Diastolic (mm Hg) 93 10/09/2017 [facility] Heart Rate 79 10/09/2017 [facility] BMI Calculated 36.7 09/18/2017 [facility] Height 175.26 cm 09/18/2017 [facility] Weight 112.727 09/18/2017 [facility] Systolic (mm Hg) 132 09/18/2017 [facility] Diastolic (mm Hg) 80 09/18/2017 [facility] Temperature Oral (F) 98.3 F 09/18/2017 [facility] Heart Rate 64 09/18/2017 [facility] Temperature Oral (F) 98.5 F 09/14/2017 [facility] Systolic (mm Hg) 146 09/14/2017 [facility] Diastolic (mm Hg) 84 09/14/2017 [facility] Respitory Rate 18 09/14/2017 [facility] Respitory Rate 17 09/14/2017 [facility] Systolic (mm Hg) 148 09/14/2017 [facility] Diastolic (mm Hg) 93 09/14/2017 [facility] Respitory Rate 13 09/14/2017 [facility] Systolic (mm Hg) 148 09/14/2017 [facility] Diastolic (mm Hg) 92 09/14/2017 [facility] Weight 113.636 09/14/2017 [facility] Heart Rate 72 09/14/2017 [facility] BMI Calculated 37 09/14/2017 [facility] Temperature Oral (F) 97.7 F 09/14/2017 [facility] Height 175.26 cm 09/14/2017 [facility] Temperature Oral (F) 98.3 F 08/28/2017 [facility] Systolic (mm Hg) 188 08/28/2017 [facility] Diastolic (mm Hg) 99 08/28/2017 [facility] Heart Rate 75 08/28/2017 [facility] Height 175.26 cm 08/28/2017 [facility] Weight 111.108 08/28/2017 [facility] BMI Calculated 36.17 08/28/2017 [facility] BMI Calculated 35.23 08/06/2017 [facility] Temperature Oral (F) 98.6 F 08/06/2017 [facility] Height 175.26 cm 08/06/2017 [facility] Systolic (mm Hg) 141 08/06/2017 [facility] Diastolic (mm Hg) 95 08/06/2017 [facility] Weight 108.227 08/06/2017 [facility] Heart Rate 81 08/06/2017 [facility] Systolic (mm Hg) 176 08/03/2017 [facility] Diastolic (mm Hg) 98 08/03/2017 [facility] Heart Rate 88 08/03/2017 [facility] BMI Calculated 35.59 08/03/2017 [facility] Height 176.53 cm 08/03/2017 [facility] Weight 110.909 08/03/2017 [facility] Temperature Oral (F) 97.6 F 07/10/2017 [facility] Respitory Rate 18 07/10/2017 [facility] Heart Rate 94 07/10/2017 [facility] Systolic (mm Hg) 150 07/10/2017 [facility] Diastolic (mm Hg) 95 07/10/2017 [facility] Respitory Rate 17 07/10/2017 [facility] Systolic (mm Hg) 141 07/10/2017 [facility] Diastolic (mm Hg) 87 07/10/2017 [facility] Respitory Rate 20 07/10/2017 [facility] Systolic (mm Hg) 153 07/10/2017 [facility] Diastolic (mm Hg) 82 07/10/2017 [facility] Weight 113.636 07/10/2017 [facility] BMI Calculated 35.95 07/10/2017 [facility] Height 177.8 cm 07/10/2017 [facility] Temperature Oral (F) 98.7 F 07/10/2017 [facility] Heart Rate 78 07/10/2017 [facility] Weight 112.273 06/19/2017 [facility] BMI Calculated 36.55 06/19/2017 [facility] Temperature Oral (F) 98.4 F 06/19/2017 [facility] Height 175.26 cm 06/19/2017 [facility] Heart Rate 67 06/19/2017 [facility] Systolic (mm Hg) 156 06/19/2017 [facility] Diastolic (mm Hg) 94 06/19/2017 [facility] Systolic (mm Hg) 154 03/01/2017 [facility] Diastolic (mm Hg) 94 03/01/2017 [facility] Temperature Oral (F) 97.8 F 03/01/2017 [facility] Respitory Rate 18 03/01/2017 [facility] Heart Rate 64 03/01/2017 [facility] Respitory Rate 16 03/01/2017 [facility] Systolic (mm Hg) 145 03/01/2017 [facility] Diastolic (mm Hg) 85 03/01/2017 [facility] Heart Rate 62 03/01/2017 [facility] Systolic (mm Hg) 149 03/01/2017 [facility] Diastolic (mm Hg) 89 03/01/2017 [facility] Heart Rate 60 03/01/2017 [facility] Respitory Rate 18 03/01/2017 [facility] Temperature Oral (F) 97.8 F 03/01/2017 [facility] Temperature Oral (F) 97.8 F 03/01/2017 [facility] Weight 109.091 03/01/2017 [facility] BMI Calculated 35.52 03/01/2017 [facility] Height 175.26 cm 03/01/2017 [facility] Systolic (mm Hg) 135 03/08/2016 [facility] Diastolic (mm Hg) 82 03/08/2016 [facility] Temperature Oral (F) 97.7 F 03/08/2016 [facility] Heart Rate 58 03/08/2016 [facility] Systolic (mm Hg) 152 03/08/2016 [facility] Diastolic (mm Hg) 88 03/08/2016 [facility] Respitory Rate 18 03/08/2016 [facility] Heart Rate 62 03/08/2016 [facility] Systolic (mm Hg) 132 03/08/2016 [facility] Diastolic (mm Hg) 85 03/08/2016 [facility] Temperature Oral (F) 98.3 F 03/08/2016 [facility] Heart Rate 61 03/08/2016 [facility] Temperature Oral (F) 97.8 F 03/08/2016 [facility] Respitory Rate 16 03/08/2016 [facility] Weight 105.994 03/08/2016 [facility] Respitory Rate 18 03/08/2016 [facility] Height 175.26 cm 03/07/2016 [facility] BMI Calculated 34.78 03/07/2016 [facility] Weight 106.818 03/07/2016 [facility] Respitory Rate 12 12/11/2015 [facility] Temperature Oral (F) 98.1 F 12/11/2015 [facility] Systolic (mm Hg) 127 12/11/2015 [facility] Diastolic (mm Hg) 74 12/11/2015 [facility] Respitory Rate 17 12/11/2015 [facility] Temperature Oral (F) 97.8 F 12/11/2015 [facility] Systolic (mm Hg) 139 12/11/2015 [facility] Diastolic (mm Hg) 86 12/11/2015 [facility] Temperature Oral (F) 97.8 F 12/11/2015 [facility] Respitory Rate 16 12/11/2015 [facility] Systolic (mm Hg) 148 12/11/2015 [facility] Diastolic (mm Hg) 76 12/11/2015 [facility] Weight 104.545 12/11/2015 [facility] Heart Rate 84 12/11/2015 [facility] Respitory Rate 18 11/23/2012 [facility] Systolic (mm Hg) 146 11/23/2012 [facility] Diastolic (mm Hg) 79 11/23/2012 [facility] Temperature Oral (F) 98.0 F 11/23/2012 [facility] Heart Rate 75 11/23/2012 [facility] Temperature Oral (F) 97.8 F 11/23/2012 [facility] Heart Rate 60 11/23/2012 [facility] Respitory Rate 18 11/23/2012 [facility] Systolic (mm Hg) 127 11/23/2012 [facility] Diastolic (mm Hg) 82 11/23/2012 [facility] Systolic (mm Hg) 145 11/23/2012 [facility] Respitory Rate 18 11/23/2012 [facility] Diastolic (mm Hg) 94 11/23/2012 [facility] Heart Rate 53 11/23/2012 [facility] Temperature Oral (F) 97.4 F 11/23/2012 [facility] Weight 90.909 11/23/2012 [facility] Height 175.26 cm 11/23/2012 [facility] Encounters Location Location Details Encounter Type Encounter Number Reason For Visit Attending Provider ADM Date DC Date Status Source [facility] OU [id number] MALIA JOAN 11/22/2012 11/23/2012 Active [facility] Outpatient [id number] Stoney Prangle 09/09/2013 09/10/2013 [facility] Outpatient [id number] STONEY PRANGLE 12/30/2014 Active [facility] Outpatient [id number] STONEY PRANGLE 01/11/2015 Active [facility] Outpatient [id number] STONEY PRANGLE 04/10/2015 Active [facility] Outpatient [id number] STONEY PRANGLE 05/31/2015 Active [facility] Outpatient [id number] STONEY PRANGLE 08/07/2015 Active [facility] Outpatient [id number] STONEY PRANGLE 10/10/2015 Active [facility] Outpatient [id number] ABRAR ISMAIL 11/10/2015 Active [facility] Outpatient [id number] NURSE VISIT 11/13/2015 Active [facility] Emergency [id number] Jelena Gorman 12/11/2015 12/11/2015 [facility] Outpatient [id number] ABRAR ISMAIL 01/29/2016 Active [facility] Outpatient [id number] STONEY PRANGLE 02/21/2016 Active [facility] Outpatient [id number] ABRAR ISMAIL 03/04/2016 Active [facility] Observation [id number] Mamadou Moo 03/07/2016 03/08/2016 [facility] Outpatient [id number] STONEY PRANGLE 06/26/2016 Active [facility] Outpatient [id number] ABRAR ISMAIL 11/04/2016 Active [facility] Outpatient [id number] Abrar Ismail 11/04/2016 11/05/2016 [facility] Outpatient [id number] STONEY PRANGLE 02/26/2017 Active [facility] Emergency [id number] Myrna Coker 03/01/2017 03/01/2017 [facility] Outpatient [id number] STONEY PRANGLE 03/06/2017 Active [facility] Outpatient [id number] STONEY PRANGLE 06/19/2017 Active [facility] Outpatient [id number] STONEY PRANGLE 06/19/2017 Active [facility] Primary Care [facility] Ambulatory Pre-Reg [id number] Stoney Prangle 06/19/2017 06/19/2017 [facility] Primary Care [facility] Outpatient [id number] Stoney Prangle 06/19/2017 06/20/2017 [facility] Emergency [id number] Cat Del Toro 07/10/2017 07/10/2017 [facility] Primary Care [facility] Phone Message [phone] 07/15/2017 07/17/2017 [facility] Outpatient [id number] ABRAR ISMAIL 08/03/2017 Active [facility] Primary Care [facility] Outpatient [id number] Abrar Ismail 08/03/2017 08/04/2017 [facility] Outpatient [id number] STONEY PRANGLE 08/06/2017 Active [facility] Primary Care [facility] Outpatient [id number] Stoney Prangle 08/06/2017 08/07/2017 [facility] Outpatient [id number] STONEY PRANGLE 08/28/2017 Active [facility] Primary Care [facility] Outpatient [id number] Stoney Prangle 08/28/2017 08/29/2017 [facility] Outpatient [id number] TONY DYKES 09/06/2017 Active [facility] Emergency [id number] Florentino Reyes 09/14/2017 09/14/2017 [facility] Outpatient [id number] STONEY PRANGLE 09/18/2017 Active [facility] Primary Care [facility] Outpatient [id number] Stoney Prangle 09/18/2017 09/19/2017 [facility] Outpatient [id number] STONEY AGUILAR 10/09/2017 Active [facility] Primary Care [facility] Outpatient [id number] Stoney Aguilar 10/09/2017 10/10/[facility] Outpatient [id number] STONEY AGUILAR 11/17/2017 Active [facility] Primary Care [facility] Outpatient [id number] Stoney Aguilar 11/17/2017 11/18/2017 [facility] Emergency [id number] Alison Quiles 12/07/2017 12/07/2017 [facility] Outpatient [id number] STONEY AGUILAR 01/06/2018 Active [facility] Outpatient [id number] STONEY AGUILAR 03/18/2018 Active [facility] Procedures Procedure Code Date Perfomer Comments Source
--- OUTSIDE RECORDS SUMMARY | 2018-04-02 12:56 | XMS REPORT | Summary of Care ---
Author Author [facility] Primary Care [facility] Primary [facility] Address Unknown Phone Unavailable Encounter HQ Encntr_alias(FIN) [id number] Date(s): 06/19/17 - 06/19/17 [facility] [address] [place] [address]- [phone] Attending Physician: Darek Aguilar DO Vital Signs No data available for this [...] 10; Started at age[age]; entered on: 09/18/17 Assessment and Plan No data available for this section
--- OUTSIDE RECORDS SUMMARY | 2018-04-02 12:56 | XMS REPORT | CCD ---
Author Author Auto Generated Organization [facility] Address Unknown Phone Unavailable Care Team Providers Care Gearman Name Role Phone Malia Soto CP Allergies, Adverse Reactions, Alerts Substance Reaction Status NKDA Active Problem List Condition Effective Dates Status DM - Diabetes mellitus Resolved Medications Medication Instructions Start Date End Date Status pantoprazole 40 mg 40 mg, 1 tab, PO, Before Dinner, 11/23/2012 Ordered oral enteric coated tab, Substitution Allowed, ECTAB tablet nitroglycerin 0.4 mg 0.4 mg, 1 tab, SL, Q5Min, PRN, 11/23/2012 Ordered sublingual tablet tab, Chest Pain, Substitution Allowed, TAB levofloxacin 250 mg 500 mg, 2 tab, PO, [id number], 7 tab, 11/23/2012 Ordered oral tablet Substitution Allowed, TAB nitroglycerin 0.4 mg 0.4 mg, 1 tab, Route: SL, Drug 11/22/2012 11/23/2012 Discontinued sublingual tablet form: TAB, Q5Min, PRN Chest Pain, Start date: 11/22/12 23:23:00, Duration: 30 day, Stop date: 12/22/12 23:22:00 atropine 0.5 mg, 5 mL, Route: IVP, Drug 11/22/2012 11/23/2012 Discontinued form: INJ, PRN, PRN Bradycardia, Start date: 11/22/12 23:22:00, Duration: 30 day, Stop date: 12/22/12 23:21:00 NTG sublingual 0.4 mg, Route: SL, Q5Min, Dosing 11/23/2012 11/23/2012 Deleted tablet Weight 90.909, kg, PRN Chest Pain, Start date: 11/23/12 9:58:00, Duration: 30 day, Stop date: 12/23/12 9:57:00 Tylenol 325 mg oral 650 mg, 2 tab, PO, Q4H, PRN, 120 11/22/2012 11/23/2012 Discontinued tablet tab, Pain, Substitution Allowed Saline Flush 0.9% 5 ml, Route: IVP, Drug Form: INJ, 11/22/2012 11/23/2012 Discontinued Dosing Weight 90.909, kg, PRN, PRN Line Flush, Start date: 11/22/12 23:18:00, Duration: 30 day, Stop date: 12/22/12 23:17:00 aspirin 325 mg 325 mg, 1 tab, Route: PO, Drug 11/22/2012 11/23/2012 Discontinued tablet form: TAB, Daily, Dosing Weight 90.909, kg, Priority: STAT, Start date: 11/22/12 23:18:00, Duration: 30 day, Stop date: 12/22/12 9:00:00 ondansetron 4 mg, 2 mL, Route: IVP, Drug form: 11/22/2012 11/23/2012 Discontinued INJ, Q8H, Dosing Weight 90.909, kg, PRN Nausea & Vomiting, Start date: 11/22/12 23:18:00, Duration: 30 day, Stop date: 12/22/12 23:17:00 acetaminophen-hydroc 1 tab, Route: PO, Drug Form: TAB, 11/22/2012 11/23/2012 Discontinued odone 325 mg-5 mg Dosing Weight 90.909, kg, Q4H, PRN oral tablet Pain Score 1-3, Start date: 11/22/12 23:18:00, Duration: 30 day, Stop date: 12/22/12 23:17:00 docusate 100 mg, 1 cap, Route: PO, Drug 11/22/2012 11/23/2012 Discontinued form: CAP, BID, Dosing Weight 90.909, kg, PRN Constipation, Start date: 11/22/12 23:18:00, Duration: 30 day, Stop date: 12/22/12 23:17:00 morphine Sulfate 4 mg, 2 mL, Route: IVP, Drug form: 11/22/2012 11/23/2012 Discontinued INJ, Q3H, Dosing Weight 90.909, kg, PRN Pain Score 7-10, Start date: 11/22/12 23:18:00, Duration: 30 day, Stop date: 12/22/12 23:17:00 acetaminophen 650 mg, 20.3 mL, Route: PO, Drug 11/22/2012 11/23/2012 Discontinued form: LIQ, Q4H, Dosing Weight 90.909, kg, PRN Pain 1-3/Temp > 100.4 F, Start date: 11/22/12 23:18:00, Duration: 30 day, Stop date: 12/22/12 23:17:00 aspirin 325 mg 325 mg, 1 tab, Route: PO, Drug 11/22/2012 11/22/2012 Completed tablet form: TAB, ONCE, Dosing Weight 90.909, kg, dysphagia screen first, Priority: STAT, Start date: 11/22/12 21:16:00, Stop date: 11/22/12 21:16:00 Levaquin 500 mg, 2 tab, Route: PO, Drug 11/23/2012 11/23/2012 Discontinued form: TAB, [id number], Dosing Weight 90.909, kg, Start date: 11/23/12 10:00:00, Duration: 7 day, Stop date: 11/29/12 10:00:00 Protonix 40 mg, 1 tab, Route: PO, Drug form: 11/23/2012 11/23/2012 Canceled ECTAB, Before Dinner, Dosing Weight 90.909, kg, Start date: 11/23/12 16:30:00, Duration: 30 day, Stop date: 12/22/12 16:30:00 Vital Signs Most recent to oldest [Reference Range]: 1 2 3 Height 175.26 cm (11/22/2012 20:17:00) Temperature Oral [96.4-99.1 DegF] 98.0 DegF (11/23/2012 08:00:00) 97.8 DegF (11/23/2012 04:00:00) 97.4 DegF (11/23/2012 00:00:00) Systolic Blood Pressure [90-140 mmHg] 146 mmHg *HI* (11/23/2012 08:00:00) 127 mmHg (11/23/2012 04:00:00) 145 mmHg *HI* (11/23/2012 00:00:00) Diastolic Blood Pressure [60-90 mmHg] 79 mmHg (11/23/2012 08:00:00) 82 mmHg (11/23/2012 04:00:00) 94 mmHg *HI* (11/23/2012 00:00:00) Respiratory Rate [14-20 BRMIN] 18 BRMIN (11/23/2012 08:00:00) 18 BRMIN (11/23/2012 04:00:00) 18 BRMIN (11/23/2012 00:00:00) Peripheral Pulse Rate [60-100 bpm] 75 bpm (11/23/2012 08:00:00) 60 bpm (11/23/2012 04:00:00) 53 bpm *LOW* (11/23/2012 00:00:00) Weight 90.909 kg (11/22/2012 20:17:00) Results CHEMISTRY Most recent to oldest [Reference Range]: 1 2 Sodium Lvl [135-145 mEq/L] 142 mEq/L (11/22/2012 21:00:00) Potassium Lvl [3.5-5.1 mEq/L] 3.5 mEq/L (11/22/2012 21:00:00) Chloride Lvl [95-109 mEq/L] 108 mEq/L (11/22/2012 21:00:00) CO2 [24-32 mEq/L] 23 mEq/L *LOW* (11/22/2012 21:00:00) AGAP [10.0-20.0 mEq/L] 14.5 mEq/L (11/22/2012 21:00:00) Creatinine Lvl [0.5-1.4 mg/dL] 1.0 mg/dL (11/22/2012 21:00:00) eGFR 92 mL/min/1.73m2 1 *NA* (11/22/2012 21:00:00) BUN [7-22 mg/dL] 10 mg/dL (11/22/2012 21:00:00) B/C Ratio [6-25] 10 (11/22/2012 21:00:00) Glucose Lvl [70-99 mg/dL] 130 mg/dL 2 *HI* (11/22/2012 21:00:00) Total Protein [6.4-8.4 g/dL] 7.2 g/dL (11/22/2012 21:00:00) Albumin Lvl [3.5-5.0 g/dL] 3.9 g/dL (11/22/2012:00:00) Globulin [2.0-4.0 g/dL] 3.3 g/dL (11/22/2012:00:00) A/G Ratio [0.7-1.6] 1.2 (11/22/2012:00:00) Calcium Lvl [8.5-10.5 mg/dL] 8.2 mg/dL *LOW* (11/22/2012:00:00) Phosphorus [2.5-4.5 mg/dL] 4.7 mg/dL *HI* (11/23/2012 04:45:00) Magnesium Lvl [1.8-2.4 mg/dL] 1.9 mg/dL (11/23/2012 04:45:00) ALT [0-65 unit/L] 30 unit/L (11/22/2012:00:00) AST [0-37 unit/L] 18 unit/L (11/22/2012:00:00) Alk Phos [39-136 unit/L] 77 unit/L (11/22/2012:00:00) Bili Total [0.2-1.3 mg/dL] <0.1 mg/dL *LOW* (11/22/2012:00:00) Amylase Lvl [25-115 unit/L] 29 unit/L (11/22/2012:00:00) Lipase Lvl [73-393 unit/L] 234 unit/L (11/22/2012:00:00) Total CK [12-191 unit/L] 87 unit/L (11/23/2012 04:45:00) 99 unit/L (11/22/2012:00:00) CK MB [0.5-3.6 ng/mL] <0.5 ng/mL (11/23/2012 04:45:00) 0.7 ng/mL (11/22/2012:00:00) CK MB Index [0.0-2.5] <0.6 (11/23/2012 04:45:00) 0.7 (11/22/2012 21:00:00) Troponin-I [0.00-0.40 ng/mL] <0.02 ng/mL (11/23/2012:45:00) <0.02 ng/mL (11/22/2012:00:00) CHD Risk [4.00-7.30] 6.08 (11/23/2012:45:00) Chol [<=199 mg/dL] 146 mg/dL (11/23/2012:45:00) Trig [<=149 mg/dL] 208 mg/dL *HI* (11/23/2012:45:00) HDL [>=61 mg/dL] 24 mg/dL *LOW* (11/23/2012:45:00) LDL [<=99 mg/dL] 80 mg/dL (11/23/2012:45:00) 1Result Comment: The eGFR is calculated using [...] be mul tiplied by the estimated BMI. 2Interpretive Data: Adult reference range values reflect the clinical guidelines of the [place] [employer]. HEMATOLOGY Most recent to oldest [Reference Range]: 1 2 WBC [3.7-10.4 K/CMM] 12.3 K/CMM *HI* (11/23/2012:45:00) 12.9 K/CMM *HI* (11/22/2012:00:00) RBC [4.70-6.10 M/CMM] 5.56 M/CMM (11/23/2012:45:00) 5.52 M/CMM (11/22/2012:00:00) Hgb [14.0-18.0 g/dL] 15.7 g/dL (11/23/2012 04:45:00) 15.5 g/dL (11/22/2012 21:00:00) Hct [42.0-54.0 %] 47.4 % (11/23/2012 04:45:00) 46.8 % (11/22/2012 21:00:00) MCV [80.0-94.0 fL] 85.3 fL (11/23/2012 04:45:00) 84.8 fL (11/22/2012 21:00:00) MCH [27.0-31.0 pg] 28.3 pg (11/23/2012 04:45:00) 28.1 pg (11/22/2012 21:00:00) MCHC [32.0-36.0 g/dL] 33.2 g/dL (11/23/2012 04:45:00) 33.2 g/dL (11/22/2012 21:00:00) RDW [11.5-14.5 %] 13.2 % (11/23/2012 04:45:00) 12.9 % (11/22/2012 21:00:00) Platelet [133-450 K/CMM] 208 K/CMM (11/23/2012 04:45:00) 219 K/CMM (11/22/2012 21:00:00) MPV [7.4-10.4 fL] 9.5 fL (11/23/2012 04:45:00) 9.9 fL (11/22/2012 21:00:00) Segs [45.0-75.0 %] 52.8 % (11/23/2012 04:45:00) 60.9 % (11/22/2012 21:00:00) Lymphocytes [20.0-40.0 %] 36.7 % (11/23/2012 04:45:00) 29.1 % (11/22/2012 21:00:00) Monocytes [2.0-12.0 %] 7.2 % (11/23/2012 04:45:00) 6.8 % (11/22/2012 21:00:00) Eosinophils [0.0-4.0 %] 3.1 % (11/23/2012 04:45:00) 2.7 % (11/22/2012 21:00:00) Basophils [0.0-1.0 %] 0.2 % (11/23/2012 04:45:00) 0.5 % (11/22/2012 21:00:00) Segs-Bands # [1.5-8.1 K/CMM] 6.5 K/CMM (11/23/2012 04:45:00) 7.8 K/CMM (11/22/2012 21:00:00) Lymphocytes # [1.0-5.5 K/CMM] 4.5 K/CMM (11/23/2012 04:45:00) 3.7 K/CMM (11/22/2012 21:00:00) Monocytes # [0.0-0.8 K/CMM] 0.9 K/CMM *HI* (11/23/2012 04:45:00) 0.9 K/CMM *HI* (11/22/2012 21:00:00) Eosinophils # [0.0-0.5 K/CMM] 0.4 K/CMM (11/23/2012 04:45:00) 0.3 K/CMM (11/22/2012 21:00:00) Basophils # [0.0-0.2 K/CMM] 0.0 K/CMM (11/23/2012 04:45:00) 0.1 K/CMM (11/22/2012 21:00:00)
--- OUTSIDE RECORDS SUMMARY | 2018-04-02 12:56 | XMS REPORT | Summary of Care ---
Author Author [facility] Address Unknown Phone Unavailable Encounter VIRI Vargas(CARL) [id number] Date(s): 06/19/17 - 06/19/[address] [place] [address]- [phone] Discharge Disposition: Home or Self Care Attending Physician: Darek Aguilar DO Vital Signs Most recent to 1 oldest [Reference Range]: Height 175.26 cm (06/19/17 2:43 PM) Temperature Oral 98.4 DegF [96.4-99.1 DegF] (06/19/17 2:43 PM) Blood Pressure 156/94 mmHg [90-140/60-90 mmHg] *HI* (06/19/17 2:43 PM) Peripheral Pulse 67 bpm Rate [60-100 bpm] (06/19/17 2:43 PM) Weight 112.273 kg (06/19/17 2:43 PM) Body Mass Index 36.55 m2 (06/19/17 2:43 PM) Problem List Condition Effective Dates Status Health Status Informant COPD with acute < 02/21/16 Resolved exacerbation(Confirm ed) Eye Active disorder(Confirmed) Hypertension(Confirm Resolved ed) HTN Active (hypertension)(Confi rmed) Obesity(Confirmed) Active 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) Allergies, Adverse Reactions, Alerts Substance Reaction Severity Status NKDA Active Medications buPROPion 150 mg/24 hours (XL) oral tablet, extended release 150 mg=1 tab, PO, Q24H, # 30 tab, 1 Refill(s), Pharmacy: [facility] [id number] Start Date: 06/19/17 Stop Date: 08/03/17 Status: Discontinued cloNIDine 0.1 mg oral tablet 0.1 mg=1 tab, PO, ONCE, # 30 tab, 1 Refill(s), Pharmacy: [facility] [id number] Start Date: 06/19/17 Status: Ordered cloNIDine 0.1 mg oral tablet 0.1 mg=1 tab, PO, BID, 0 Refill(s) Start Date: 06/19/17 Stop Date: 08/03/17 Status: Discontinued Results No data available for this section [...]
--- OUTSIDE RECORDS SUMMARY | 2018-04-02 12:56 | XMS REPORT | Summary of Care ---
Author Author [facility] Organization [facility] Address Unknown Phone Unavailable Encounter VIRI Vargas(CARL) [id number] Date(s): 12/10/15 - 12/11/15 [facility] [address] [place] [address]- Discharge Diagnosis: Dyspnea, unspecified Discharge Disposition: Home or Self Care Attending Physician: Jelena Gorman DO Vital Signs 1 2 3 Most recent to oldest [Reference Range]: 98.1 DegF (12/11/15 12:32 AM) 97.8 DegF (12/10/15 11:16 PM) 97.8 DegF (12/10/15 10:07 PM) Temperature Oral [96.4-99.1 DegF] 127/74 mmHg (12/11/15 12:32 AM) 139/86 mmHg (12/10/15 11:16 PM) 148/76 mmHg *HI* (12/10/15 10:07 PM) Blood Pressure [90-140/60-90 mmHg] 12 BRMIN *LOW* (12/11/15 12:32 AM) 17 BRMIN (12/10/15 11:16 PM) 16 BRMIN (12/10/15 10:07 PM) Respiratory Rate [14-20 BRMIN] 84 bpm (12/10/15 8:57 PM) Peripheral Pulse Rate [60-100 bpm] 104.545 kg (12/10/15 8:57 PM) Weight Problem List Condition Effective Dates Status Health Status Informant Eye Active disorder(Confirmed) DM - Diabetes Resolved mellitus(Confirmed) Obesity(Confirmed) Active 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) Allergies, Adverse Reactions, Alerts Substance Reaction Severity Status NKDA Active Medications albuterol 90 mcg/inh inhalation aerosol 2 puff, INHALATION, Q4H, PRN for wheezing, # 9 gm, 0 Refill(s), Pharmacy: [facility] [id number] Start Date: 12/10/15 Status: Ordered albuterol-ipratropium 2.5-0.5 mg inhalation solution 9 mL, Route: NEB, Dosing Weight 104.545, kg, ONCE, STAT, Start date: 12/10/15 21 :20:00 CDT, Stop date: 12/10/15 21:20:00 CDT Start Date: 12/10/15 Stop Date: 12/10/15 Status: Completed predniSONE 60 mg, Route: PO, Drug form: TAB, ONCE, Dosing Weight 104.545, kg, Priority: STA T, Start date: 12/10/15 21:20:00 CDT, Stop date: 12/10/15 21:20:00 CDT Start Date: 12/10/15 Stop Date: 12/10/15 Status: Completed predniSONE 20 mg oral tablet 40 mg=2 tab, PO, Daily, X 5 day, # 10 tab, 0 Refill(s), Pharmacy: [facility] [id number] Start Date: 12/10/15 Stop Date: 12/15/15 Status: Ordered Saline Flush 0.9% 10 mL, Route: IVP, Drug Form: INJ, Dosing Weight 106.364, kg, PRN, PRN Line Flus h, Start date: 12/10/15 20:57:00 CDT, Duration: 30 day, Stop date: 01/09/16 20:5 6:00 CDT Notes: (Same as: BD Posiflush) Start Date: 12/10/15 Stop Date: 12/11/15 Status: Discontinued Results ELECTROLYTES Most recent to 1 oldest [Reference Range]: Sodium Lvl [135-145 138 mEq/L mEq/L] (12/10/15 10:01 PM) Potassium Lvl 3.6 mEq/L [3.5-5.1 mEq/L] (12/10/15 10:01 PM) Chloride Lvl [95-109 106 mEq/L mEq/L] (12/10/15 10:01 PM) CO2 [24-32 mEq/L] 28 mEq/L (12/10/15 10:01 PM) AGAP [10.0-20.0 7.6 mEq/L mEq/L] *LOW* (8/14/16 10:01 PM) CHEM PANEL Most recent to 1 oldest [Reference Range]: Creatinine Lvl 1.28 mg/dL [0.50-1.40 mg/dL] (12/10/15 10:01 PM) eGFR 67 mL/min/1.73m2 1 *NA* (12/10/15 10:01 PM) BUN [7-22 mg/dL] 11 mg/dL (12/10/15 10:01 PM) B/C Ratio [6-25] 9 (12/10/15 10:01 PM) Glucose Lvl [70-99 94 mg/dL mg/dL] (12/10/15 10:01 PM) Total Protein 7.0 g/dL [6.4-8.4 g/dL] (12/10/15 10:01 PM) Albumin Lvl [3.5-5.0 4.0 g/dL g/dL] (12/10/15 10:01 PM) Globulin [2.7-4.2 3.0 g/dL g/dL] (12/10/15 10:01 PM) A/G Ratio [0.7-1.6] 1.3 (12/10/15 10:01 PM) Calcium Lvl 8.3 mg/dL [8.5-10.5 mg/dL] *LOW* (12/10/15 10:01 PM) ALT [0-65 unit/L] 28 unit/L (12/10/15 10:01 PM) AST [0-37 unit/L] 16 unit/L (12/10/15 10:01 PM) Alk Phos [39-136 70 unit/L unit/L] (12/10/15 10:01 PM) Bili Total [0.2-1.3 0.3 mg/dL mg/dL] (12/10/15 10:01 PM) 1Result Comment: The eGFR is calculated [...] 1 oldest [Reference Range]: Total CK [12-191 164 unit/L unit/L] (12/10/15 10:01 PM) CK MB [0.5-3.6 0.8 ng/mL ng/mL] (12/10/15 10:01 PM) CK MB Index 0.5 [0.0-2.5] (12/10/15 10: PM) Troponin-I <0.02 ng/mL [0.00-0.40 ng/mL] (12/10/15 10:01 PM) HEMATOLOGY Most recent to 1 oldest [Reference Range]: WBC [3.7-10.4 K/CMM] 13.3 K/CMM *HI* (12/10/15 10:01 PM) RBC [4.70-6.10 5.60 M/CMM M/CMM] (12/10/15 10:01 PM) Hgb [14.0-18.0 g/dL] 15.4 g/dL (12/10/15 10:01 PM) Hct [42.0-54.0 %] 46.7 % (12/10/15 10:01 PM) MCV [80.0-94.0 fL] 83.3 fL (12/10/15 10:01 PM) MCH [27.0-31.0 pg] 27.5 pg (12/10/15 10:01 PM) MCHC [32.0-36.0 33.0 g/dL g/dL] (12/10/15 10:01 PM) RDW [11.5-14.5 %] 13.0 % (12/10/15 10:01 PM) Platelet [133-450 199 K/CMM K/CMM] (12/10/15 10:01 PM) MPV [7.4-10.4 fL] 9.0 fL (12/10/15 10:01 PM) Segs [45.0-75.0 %] 65.9 % (12/10/15 10:01 PM) Lymphocytes 23.0 % [20.0-40.0 %] (12/10/15 10:01 PM) Monocytes [2.0-12.0 8.4 % %] (12/10/15 10:01 PM) Eosinophils [0.0-4.0 2.1 % %] (12/10/15 10:01 PM) Basophils [0.0-1.0 0.6 % %] (12/10/15 10:01 PM) Segs-Bands # 8.7 K/CMM [1.5-8.1 K/CMM] *HI* (12/10/15 10:01 PM) Lymphocytes # 3.1 K/CMM [1.0-5.5 K/CMM] (12/10/15 10:01 PM) Monocytes # [0.0-0.8 1.1 K/CMM K/CMM] *HI* (12/10/15 10:01 PM) Eosinophils # 0.3 K/CMM [0.0-0.5 K/CMM] (12/10/15 10:01 PM) Basophils # [0.0-0.2 0.1 K/CMM K/CMM] (12/10/15 10:01 PM) Immunizations No data available for this section Procedures No data available for this section Social History Social History Type Response Smoking Status Current every day smoker; Type: Cigarettes; Exposure to Tobacco Smoke None; Cigarette Smoking Last 365 Days Yes; Reg Smoking Cessation Counseling Yes Assessment and Plan No data available for this section
--- OUTSIDE RECORDS SUMMARY | 2018-04-02 12:56 | XMS REPORT | Summary of Care ---
Author Author [facility] Organization [facility] Address Unknown Phone Unavailable Encounter VIRI Vargas(CARL) [id number] Date(s): 03/07/16 - 03/08/16 [facility] [address] [place] [address]- Discharge Disposition: Home or Self Care Attending Physician: Mamadou Cortés MD Admitting Physician: Mamadou Cortés MD Vital Signs 1 2 3 Most recent to oldest [Reference Range]: 175.26 cm (03/07/16 5:58 PM) Height 97.7 DegF (03/08/16 3:25 PM) 98.3 DegF (03/08/16 12:11 PM) 97.8 DegF (03/08/16 11:55 AM) Temperature Oral [96.4-99.1 DegF] 135/82 mmHg (03/08/16 3:25 PM) 152/88 mmHg *HI* (03/08/16 1:00 PM) 132/85 mmHg (03/08/16 12:11 PM) Blood Pressure [90-140/60-90 mmHg] 18 BRMIN (03/08/16 12:11 PM) 16 BRMIN (03/08/16 11:55 AM) 18 BRMIN (03/08/16 6:59 AM) Respiratory Rate [14-20 BRMIN] 58 bpm *LOW* (03/08/16 3:25 PM) 62 bpm (03/08/16 12:11 PM) 61 bpm (03/08/16 11:55 AM) Peripheral Pulse Rate [60-100 bpm] 105.994 kg (03/08/16 9:50 AM) 106.818 kg (03/07/16 5:58 PM) Weight 34.78 m2 (03/07/16 5:58 PM) Body Mass Index Problem List Condition Effective Dates Status Health Status Informant COPD with acute < 02/21/16 Resolved exacerbation(Confirm ed) Eye Active disorder(Confirmed) Hypertension(Confirm Resolved ed) HTN Active (hypertension)(Confi rmed) Obesity(Confirmed) Active 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) Allergies, Adverse Reactions, Alerts Substance Reaction Severity Status NKDA Active Medications aspirin 81 mg tablet, enteric coated 81 mg=1 tab, PO, Daily, # 90 tab, 3 Refill(s) Start Date: 03/08/16 Status: Ordered aspirin 81 mg tablet, enteric coated 81 mg, 1 tab, Route: PO, Drug form: ECTAB, Daily, Dosing Weight 109.716, kg, Marge ority: NOW, Start date: 03/07/16 17:08:00 MEDICAL SUPPORT SPECIALIST, Duration: 30 day, Stop date: 03/28 9:00:00 MEDICAL SUPPORT SPECIALIST Notes: Do not crush or chew.(Same As: Ecotrin) Start Date: 03/07/16 Stop Date: 03/08/16 Status: Discontinued Lipitor 40 mg oral tablet 40 mg=1 tab, PO, Bedtime, # 90 tab, 3 Refill(s) Start Date: 03/08/16 Status: Ordered losartan 50 mg, 1 tab, Route: PO, Drug form: TAB, Daily, Dosing Weight 106.818, kg, Start date: 03/07/16 22:00:00 MEDICAL SUPPORT SPECIALIST, Duration: 30 day, Stop date: 04/06/16 9:00:00 MEDICAL SUPPORT SPECIALIST Notes: (Same as: Caren) Start Date: 03/07/16 Stop Date: 03/08/16 Status: Discontinued nitroglycerin SL Tab 0.4 mg, 1 tab, Route: SL, Drug form: TAB, Q5Min, Dosing Weight 109.716, kg, PRN Chest Pain, Start date: 03/07/16 15:55:00 MEDICAL SUPPORT SPECIALIST, Duration: 3 doses or times, Stop date: Limited # of times Notes: (Same as:Favioqumanju Nitrostat)"Do Not Crush" Sublingual tablet Start Date: 03/07/16 Stop Date: 03/08/16 Status: Discontinued pneumococcal 23-valent vaccine 0.5 mL, Route: IM, Drug Form: INJ, Daily, Start date: 03/08/16 9:00:00 MEDICAL SUPPORT SPECIALIST, Dura tion: 1 doses or times, Stop date: 03/08/16 9:00:00 MEDICAL SUPPORT SPECIALIST Notes: (Same as: Pneumovax 23) Refrigerate Start Date: 03/08/16 Stop Date: 03/08/16 Status: Completed Saline Flush 0.9% 10 ml, Route: IVP, Drug Form: INJ, Dosing Weight 109.716, kg, Q12H, Start date: 03/07/16 21:00:00 MEDICAL SUPPORT SPECIALIST, Duration: 30 day, Stop date: 04/06/16 9:00:00 MEDICAL SUPPORT SPECIALIST Notes: (Same as: BD Posiflush) Start Date: 03/07/16 Stop Date: 03/08/16 Status: Discontinued Saline Flush 0.9% 10 ml, Route: IVP, Drug Form: INJ, Dosing Weight 109.716, kg, PRN, PRN Line Flus h, Start date: 03/07/16 15:55:00 MEDICAL SUPPORT SPECIALIST, Duration: 30 day, Stop date: 04/06/16 15:5 4:00 MEDICAL SUPPORT SPECIALIST Notes: (Same as: BD Posiflush) Start Date: 03/07/16 Stop Date: 03/08/16 Status: Discontinued sodium chloride 0.9% 1000 ml INJ 750 mL 750 mL, Rate: 75 ml/hr, Infuse over: 10 hr, Route: IV, Dosing Weight 105.994 kg, Total Volume: 750, Start date: 03/08/16 11:43:00 MEDICAL SUPPORT SPECIALIST, Duration: 10 hr, Stop cuca e: 03/08/16 21:42:00 MEDICAL SUPPORT SPECIALIST Start Date: 03/08/16 Stop Date: 03/08/16 Status: Discontinued Tylenol 650 mg, 2 tab, Route: PO, Drug form: TAB, Q6H, Dosing Weight 105.994, kg, PRN Pa in Score 1-3, Start date: 03/08/16 16:17:00 MEDICAL SUPPORT SPECIALIST, Duration: 30 day, Stop date: 16:16:00 MEDICAL SUPPORT SPECIALIST Notes: Do not exceed 4 gm/day. (Same as: Tylenol) Start Date: 03/08/16 Stop Date: 03/08/16 Status: Discontinued Zyban SR 150 mg, 1 tab, Route: PO, Drug form: ERTAB, Daily, Dosing Weight 106.818, kg, St art date: 03/07/16 22:00:00 MEDICAL SUPPORT SPECIALIST, Duration: 30 day, Stop date: 04/06/16 9:00:[address] Notes: (Do not crush) (Same As: Wellbutrin SR) Start Date: 03/07/16 Stop Date: 03/08/16 Status: Discontinued Zyban SR 150 mg oral tablet, extended release 150 mg=1 tab, PO, Daily, 0 Refill(s) Start Date: 03/07/16 Status: Ordered Results ELECTROLYTES 1 2 3 Most recent to oldest [Reference Range]: 137 mEq/L (03/07/16 7:53 PM) Sodium Lvl [135-145 mEq/L] 3.5 mEq/L (03/07/16 7:53 PM) Potassium Lvl [3.5-5.1 mEq/L] 104 mEq/L (03/07/16 7:53 PM) Chloride Lvl [95-109 mEq/L] 23 mEq/L *LOW* (03/07/16 7:53 PM) CO2 [24-32 mEq/L] 13.5 mEq/L (03/07/16 7:53 PM) AGAP [10.0-20.0 mEq/L] CHEM PANEL 1 2 3 Most recent to oldest [Reference Range]: 1.00 mg/dL (03/07/16 7:53 PM) Creatinine Lvl [0.50-1.40 mg/dL] 90 mL/min/1.73m2 1 *NA* (03/07/16 7:53 PM) eGFR 10 mg/dL (03/07/16 7:53 PM) BUN [7-22 mg/dL] 143 mg/dL *HI* (03/07/16 7:53 PM) Glucose Lvl [70-99 mg/dL] 7.1 g/dL (03/07/16 7:53 PM) Total Protein [6.4-8.4 g/dL] 4.0 g/dL (03/07/16 7:53 PM) Albumin Lvl [3.5-5.0 g/dL] 3.1 g/dL (03/07/16 7:53 PM) Globulin [2.7-4.2 g/dL] 1.3 (03/07/16 7:53 PM) A/G Ratio [0.7-1.6] 8.4 mg/dL *LOW* (03/07/16 7:53 PM) Calcium Lvl [8.5-10.5 mg/dL] 2.2 mg/dL (03/07/16 7:53 PM) Magnesium Lvl [1.8-2.4 mg/dL] 36 unit/L (03/07/16 7:53 PM) ALT [0-65 unit/L] 24 unit/L (03/07/16 7:53 PM) AST [0-37 unit/L] 71 unit/L (03/07/16 7:53 PM) Alk Phos [39-136 unit/L] 0.4 mg/dL (03/07/16 7:53 PM) Bili Total [0.2-1.3 mg/dL] 0.1 mg/dL (03/07/16 7:53 PM) Bili Direct [0.0-0.3 mg/dL] 0.3 mg/dL (03/07/16 7:53 PM) Bili Indirect [0.0-1.0 mg/dL] 1Result Comment: The eGFR is calculated using [...] tiplied by the estimated BMI. CARDIAC ENZYMES 1 2 3 Most recent to oldest [Reference Range]: 128 unit/L (03/08/16 5:25 AM) 132 unit/L (03/08/16 12:50 AM) 154 unit/L (03/07/16 7:53 PM) Total CK [12-191 unit/L] 1.0 ng/mL (03/08/16 5:25 AM) 1.0 ng/mL (03/08/16 12:50 AM) 0.9 ng/mL (03/07/16 7:53 PM) CK MB [0.5-3.6 ng/mL] 0.8 (03/08/16 5:25 AM) 0.8 (03/08/16 12:50 AM) CK MB Index [0.0-2.5] <0.02 ng/mL (03/08/16 5:25 AM) <0.02 ng/mL (03/08/16 12:50 AM) <0.02 ng/mL (03/07/16 7:53 PM) Troponin-I [0.00-0.40 ng/mL] LIPIDS 1 2 3 Most recent to oldest [Reference Range]: 7.08 (03/07/16 7:53 PM) CHD Risk [4.00-7.30] 177 mg/dL (03/07/16 7:53 PM) Chol [<=199 mg/dL] 350 mg/dL *HI* (03/07/16 7:53 PM) Trig [<=149 mg/dL] 25 mg/dL *LOW* (03/07/16 7:53 PM) HDL [>=61 mg/dL] 82 mg/dL (03/07/16 7:53 PM) LDL (Calculated) [<=99 mg/dL] 70 *NA* (03/07/16 7:53 PM) VLDL SPECIAL CHEMISTRY 1 2 3 Most recent to oldest [Reference Range]: 5.3 % (03/07/16 7:53 PM) Hgb A1C [<=5.6 %] HEMATOLOGY 1 2 3 Most recent to oldest [Reference Range]: 11.4 K/CMM *HI* (03/07/16 7:53 PM) WBC [3.7-10.4 K/CMM] 5.58 M/CMM (03/07/16 7:53 PM) RBC [4.70-6.10 M/CMM] 15.7 g/dL (03/08/16 3:00 PM) 15.6 g/dL (03/07/16 7:53 PM) Hgb [14.0-18.0 g/dL] 46.2 % (03/07/16 7:53 PM) Hct [42.0-54.0 %] 82.7 fL (03/07/16 7:53 PM) MCV [80.0-94.0 fL] 27.9 pg (03/07/16 7:53 PM) MCH [27.0-31.0 pg] 33.7 g/dL (03/07/16 7:53 PM) MCHC [32.0-36.0 g/dL] 13.1 % (03/07/16 7:53 PM) RDW [11.5-14.5 %] 203 K/CMM (03/07/16 7:53 PM) Platelet [133-450 K/CMM] 10.0 fL (03/07/16 7:53 PM) MPV [7.4-10.4 fL] 66.1 % (03/07/16 7:53 PM) Segs [45.0-75.0 %] 25.3 % (03/07/16 7:53 PM) Lymphocytes [20.0-40.0 %] 5.2 % (03/07/16 7:53 PM) Monocytes [2.0-12.0 %] 3.0 % (03/07/16 7:53 PM) Eosinophils [0.0-4.0 %] 0.4 % (03/07/16 7:53 PM) Basophils [0.0-1.0 %] 7.5 K/CMM (03/07/16 7:53 PM) Segs-Bands # [1.5-8.1 K/CMM] 2.9 K/CMM (03/07/16 7:53 PM) Lymphocytes # [1.0-5.5 K/CMM] 0.6 K/CMM (03/07/16 7:53 PM) Monocytes # [0.0-0.8 K/CMM] 0.3 K/CMM (03/07/16 7:53 PM) Eosinophils # [0.0-0.5 K/CMM] 13.5 seconds (03/07/16 7:53 PM) PT [12.0-14.7 seconds] 1.01 (03/07/16 7:53 PM) INR [0.85-1.17] 30.0 seconds (03/07/16 7:53 PM) PTT [22.9-35.8 seconds] Immunizations Given and Recorded Vaccine Date Status Refusal Reason influenza virus vaccine, inactivated 03/04/16 Given pneumococcal 23-valent vaccine 03/08/16 Given Procedures No data available for this section Social History Social History Type Response Substance Abuse Use: None. Alcohol Current, Type Beer, Wine, Liquor. Frequency: 1-2 times per month. Smoking Status Former smoker; Type: Cigarettes; Exposure to Tobacco Smoke None; Cigarette Smoking Last 365 Days Yes; Reg Smoking Cessation Counseling Yes Assessment and Plan Extracted from: Title: Discharge Summary * Author: Mamadou Crotés MD Date: 03/08/16 Discharge Information Discharge Plan Discharge Summary Plan Discharge Status: stable. Extracted from: Title: Clinical Document Author: Mamadou Cortés MD Date: 03/07/16 [facility] Cardiology history and physical Chief Complaint: Chest pain HPI: 45-year-old male with history of hypertension, hyperlipidemia, smoker, who is being directly admitted from my office today with chest pain. He was going on a treadmill but cannot complete the test due to pressure-like chest pain. He was having left arm numbness and tingling with this chest pain. On the EKG there are no signs suggestive of ischemia however he cannot reach his target heart rate. Is talking to him a bit more, he says he has been having chest pressure at rest sometimes at work while he sitting at his desk. I recently saw him at [facility] when he also had complaints of chest pain there. However they have gotten progressively worse. [facility] chest [facility]-free in the hospital and troponins were negative. He also shortness of breath. No palpitations. REVIEW OF SYSTEMS: CONSTITUTIONAL: No fever. No chills. No dizziness. No weakness. EYES: No pain, erythema, or discharge. No blurring of vision. EAR, NOSE AND THROAT: No sore throat, URI symptoms. No epistaxis. No tinnitus. CARDIOVASCULAR: + chest pain. No palpitations. No lower extremity edema. RESPIRATORY: + shortness of breath, no cough, pain with respiration, or pleuritic chest pain. No hemoptysis. No dyspnea. No paroxysmal nocturnal dyspnea. GASTROINTESTINAL: Normal appetite. No nausea, vomiting, diarrhea. No pain. No bloating. No melena. GENITOURINARY: No frequency, urgency, nocturia. No hematuria or dysuria. MUSCULOSKELETAL: No arthralgias or myalgias. INTEGUMENTARY: No swelling. No bruising. No contusions. No abrasions. No lymphangitis. NEUROLOGIC: No headache. No neck pain. No numbness or tingling of the extremities. No weakness. PSYCHIATRIC: No confusion. METABOLIC: No fatigue. No weakness. No history of thyroid, diabetes or adrenal problems. HEMATOLOGICAL: No bleeding. No petechiae. No bruising. ALLERGY: No asthma. No urticaria. 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 Mother: Parkinson disease SOCIAL HISTORY: No tobacco, alcohol, or drug abuse MEDICATIONS: See inpatient medications below Allergies: NKDA VitalsTmp(F)[id number] (no data in last 48 hours) 24 Hr Tmax: No Data AvailableVital Signs are the last 5 in the past 48 hours. Gen: Alert, no apparent distress Neck: No carotid bruits, No JVD Lungs: CTAB Heart: Regular, normal s1 s2, no murmurs Abd: Soft, nt, nd, +bs Ext: No edema, 2+ pulses distally Neuro: No focal deficits Skin: warm, moist No qualifying data available Impression: Chest pain hypertension hyperlipidemia smoker Plan: His chest pain is concerning given and is pressure-like, radiating to the left arm. And got worse with exertion on a treadmill. Although there were no EKG changes on the treadmill, he did not reach his target heart rate. In addition he is having any symptoms at rest occasionally at work. We will admit him for serial troponins. We will also keep him nothing by mouth after midnight for a heart cath to be performed in the morning. An echocardiogram will be ordered, and we will continue his home medications. Continuous Infusions: None Scheduled Meds (1): 03/07/16 sodium chloride (Saline Flush 0.9%) 10 ml IVP Q12H
--- OUTSIDE RECORDS SUMMARY | 2018-04-02 12:56 | XMS REPORT | Summary of Care ---
Author Author [facility] Organization [facility] Address Unknown Phone Unavailable Encounter VIRI Vargas(CARL) [id number] Date(s): 03/01/17 - 03/01/17 [facility] [address] [place] [address]- Discharge Diagnosis: Bronchitis Discharge Disposition: Home or Self Care Attending Physician: Myrna Coker DO Vital Signs 1 2 3 Most recent to oldest [Reference Range]: 175.26 cm (03/01/17 1:48 AM) Height 97.8 DegF (03/01/17 5:09 AM) 97.8 DegF (03/01/17 2:33 AM) 97.8 DegF (03/01/17 1:48 AM) Temperature Oral [96.4-99.1 DegF] 154/94 mmHg *HI* (03/01/17 5:09 AM) 145/85 mmHg *HI* (03/01/17 4:30 AM) 149/89 mmHg *HI* (03/01/17 3:35 AM) Blood Pressure [90-140/60-90 mmHg] 18 BRMIN (03/01/17 5:09 AM) 16 BRMIN (03/01/17 4:30 AM) 18 BRMIN (03/01/17 3:35 AM) Respiratory Rate [14-20 BRMIN] 64 bpm (03/01/17 5:09 AM) 62 bpm (03/01/17 4:30 AM) 60 bpm (03/01/17 3:35 AM) Peripheral Pulse Rate [60-100 bpm] 109.091 kg (03/01/17 1:48 AM) Weight 35.52 m2 (03/01/17 1:48 AM) Body Mass Index Problem List Condition Effective Dates Status Health Status Informant COPD with acute < 10/26/16 Resolved exacerbation(Confirm ed) Eye Active disorder(Confirmed) Hypertension(Confirm Resolved ed) HTN Active (hypertension)(Confi rmed) Obesity(Confirmed) Active 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) Allergies, Adverse Reactions, Alerts Substance Reaction Severity Status NKDA Active Medications albuterol-ipratropium 2.5-0.5 mg inhalation solution 3 mL, Route: NEB, Drug Form: SOLN, Dosing Weight 109.091, kg, ONCE, STAT, Start date: 03/01/17 4:10:00 CDT, Stop date: 03/01/17 4:10:00 CDT Start Date: 03/01/17 Stop Date: 03/01/17 Status: Completed predniSONE 60 mg, Route: PO, Drug form: TAB, ONCE, Dosing Weight 109.091, kg, Priority: STA T, Start date: 03/01/17 4:45:00 CDT, Stop date: 03/01/17 4:45:00 CDT Start Date: 03/01/17 Stop Date: 03/01/17 Status: Completed predniSONE 20 mg oral tablet 40 mg=2 tab, PO, Daily, X 5 day, # 10 tab, 0 Refill(s) Start Date: 03/01/17 Stop Date: 03/06/17 Status: Ordered Results ELECTROLYTES Most recent to 1 oldest [Reference Range]: Sodium Lvl [135-145 137 mEq/L mEq/L] (03/01/17 3:05 AM) Potassium Lvl 3.8 mEq/L [3.5-5.1 mEq/L] (03/01/17 3:05 AM) Chloride Lvl [95-109 105 mEq/L mEq/L] (03/01/17 3:05 AM) CO2 [24-32 mEq/L] 22 mEq/L *LOW* (03/01/17 3:05 AM) AGAP [10.0-20.0 13.8 mEq/L mEq/L] (03/01/17 3:05 AM) CHEM PANEL Most recent to 1 oldest [Reference Range]: Creatinine Lvl 0.86 mg/dL [0.50-1.40 mg/dL] (03/01/17 3:05 AM) eGFR 103 mL/min/1.73m2 1 *NA* (03/01/17 3:05 AM) BUN [7-22 mg/dL] 11 mg/dL (03/01/17 3:05 AM) B/C Ratio [6-25] 13 (03/01/17 3:05 AM) Glucose Lvl [70-99 102 mg/dL mg/dL] *HI* (03/01/17 3:05 AM) Total Protein 7.5 g/dL [6.4-8.4 g/dL] (03/01/17 3:05 AM) Albumin Lvl [3.5-5.0 3.9 g/dL g/dL] (03/01/17 3:05 AM) Globulin [2.7-4.2 3.6 g/dL g/dL] (03/01/17 3:05 AM) A/G Ratio [0.7-1.6] 1.1 (03/01/17 3:05 AM) Calcium Lvl 8.6 mg/dL [8.5-10.5 mg/dL] (03/01/17 3:05 AM) Phosphorus [2.5-4.5 3.9 mg/dL mg/dL] (03/01/17 3:05 AM) Magnesium Lvl 2.1 mg/dL [1.8-2.4 mg/dL] (03/01/17 3:05 AM) ALT [0-65 unit/L] 31 unit/L (03/01/17 3:05 AM) AST [0-37 unit/L] 17 unit/L (03/01/17 3:05 AM) Alk Phos [39-136 79 unit/L unit/L] (03/01/17 3:05 AM) Bili Total [0.2-1.3 0.7 mg/dL mg/dL] (03/01/17 3:05 AM) 1Result Comment: The eGFR is calculated using [...] 1 oldest [Reference Range]: Total CK [12-191 122 unit/L unit/L] (03/01/17 3:05 AM) CK MB [0.5-3.6 0.9 ng/mL ng/mL] (03/01/17 3:05 AM) CK MB Index 0.7 [0.0-2.5] (03/01/17 3:05 AM) Troponin-I <0.02 ng/mL [0.00-0.40 ng/mL] (03/01/17 3:05 AM) BNP [<=100 pg/mL] <2 pg/mL (03/01/17 3:05 AM) HEMATOLOGY Most recent to 1 oldest [Reference Range]: WBC [3.7-10.4 K/CMM] 10.9 K/CMM *HI* (03/01/17 3:05 AM) RBC [4.70-6.10 5.68 M/CMM M/CMM] (03/01/17 3:05 AM) Hgb [14.0-18.0 g/dL] 16.1 g/dL (03/01/17 3:05 AM) Hct [42.0-54.0 %] 47.2 % (03/01/17 3:05 AM) MCV [80.0-94.0 fL] 83.1 fL (03/01/17 3:05 AM) MCH [27.0-31.0 pg] 28.4 pg (03/01/17 3:05 AM) MCHC [32.0-36.0 34.2 g/dL g/dL] (03/01/17 3:05 AM) RDW [11.5-14.5 %] 13.0 % (03/01/17 3:05 AM) Platelet [133-450 213 K/CMM K/CMM] (03/01/17 3:05 AM) MPV [7.4-10.4 fL] 9.3 fL (03/01/17 3:05 AM) Segs [45.0-75.0 %] 58.7 % (03/01/17 3:05 AM) Lymphocytes 25.1 % [20.0-40.0 %] (03/01/17 3:05 AM) Monocytes [2.0-12.0 11.5 % %] (03/01/17 3:05 AM) Eosinophils [0.0-4.0 3.7 % %] (03/01/17 3:05 AM) Basophils [0.0-1.0 1.0 % %] (03/01/17 3:05 AM) Segs-Bands # 6.4 K/CMM [1.5-8.1 K/CMM] (03/01/17 3:05 AM) Lymphocytes # 2.7 K/CMM [1.0-5.5 K/CMM] (03/01/17 3:05 AM) Monocytes # [0.0-0.8 1.3 K/CMM K/CMM] *HI* (03/01/17 3:05 AM) Eosinophils # 0.4 K/CMM [0.0-0.5 K/CMM] (03/01/17 3:05 AM) Basophils # [0.0-0.2 0.1 K/CMM K/CMM] (03/01/17 3:05 AM) PT [12.0-14.7 13.6 seconds seconds] (03/01/17 3:05 AM) INR [0.85-1.17] 1.04 (03/01/17 3:05 AM) D-Dimer <0.27 ug/mL FEU *NA* (03/01/17 3:05 AM) PTT [22.9-35.8 33.2 seconds seconds] (03/01/17 3:05 AM) Immunizations Given and Recorded Vaccine Date Status [...]
--- OUTSIDE RECORDS SUMMARY | 2018-04-02 12:56 | XMS REPORT | Summary of Care ---
Author Author [facility] Address Unknown Phone Unavailable Encounter [facility] Alicia(FIN) [id number] Date(s): 08/06/17 - 08/06/17 [place] [id number] [facility], [address] [place] [address]- [phone] Discharge Disposition: Home or Self Care Attending Physician: Darek Aguilar DO Vital Signs Most recent to 1 oldest [Reference Range]: Height 175.26 cm (08/06/17 9:05 AM) Temperature Oral 98.6 DegF [96.4-99.1 DegF] (08/06/17 9:05 AM) Blood Pressure 141/95 mmHg [90-140/60-90 mmHg] *HI* (08/06/17 9:05 AM) Peripheral Pulse 81 bpm Rate [60-100 bpm] (08/06/17 9:05 AM) Weight 108.227 kg (08/06/17 9:05 AM) Body Mass Index 35.23 m2 (08/06/17 9:05 AM) Problem List Condition Effective Dates Status Health Status Informant COPD with acute < 02/21/16 Resolved exacerbation(Confirm ed) Eye Active disorder(Confirmed) Hypertension(Confirm Resolved ed) HTN Active (hypertension)(Confi rmed) Obesity(Confirmed) Active 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) Allergies, Adverse Reactions, Alerts Substance Reaction Severity Status NKDA Active Medications Omnicef 300 mg oral capsule 300 mg=1 cap, PO, Q12H, X 7 day, # 14 cap, 0 Refill(s), Pharmacy: [facility] [id number] Start Date: 08/06/17 Stop Date: 08/13/17 Status: Ordered Results No data available for [...] month. Smoking Status Current some day smoker; Exposure to Tobacco Smoke None; Cigarette Smoking Last 365 Days No; Reg Smoking Cessation Counseling No entered on: 08/06/17 Assessment and Plan No data available for this section
--- OUTSIDE RECORDS SUMMARY | 2018-04-02 12:57 | XMS REPORT | Summary of Care ---
Author Author [facility] Organization [facility] Address Unknown Phone Unavailable Encounter VIRI Vargas(FIN) [id number] Date(s): 08/03/17 - 08/03/17 [facility] [address] [facility] [address] [place], [place] [address] [address] [phone] Discharge Disposition: Home or Self Care Attending Physician: Ace May MD Vital Signs Most recent to 1 oldest [Reference Range]: Height 176.53 cm (08/03/17 3:44 PM) Blood Pressure 176/98 mmHg [90-140/60-90 mmHg] *HI* (08/03/17 3:44 PM) Peripheral Pulse 88 bpm Rate [60-100 bpm] (08/03/17 3:44 PM) Weight 110.909 kg (08/03/17 3:44 PM) Body Mass Index 35.59 m2 (08/03/17 3:44 PM) Problem List Condition Effective Dates Status Health Status Informant COPD with acute < 02/21/16 Resolved exacerbation(Confirm ed) Eye Active disorder(Confirmed) Hypertension(Confirm Resolved ed) HTN Active (hypertension)(Confi rmed) Obesity(Confirmed) Active 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) Allergies, Adverse Reactions, Alerts Substance Reaction Severity Status NKDA Active Medications amLODIPine 10 mg oral tablet 10 mg=1 tab, PO, Daily, 0 Refill(s) Start Date: 08/03/17 Stop Date: 08/06/17 Status: Discontinued Augmentin 875 mg oral tablet 875 mg=1 tab, PO, BID, X 10 day, # 20 tab, 0 Refill(s), Pharmacy: [facility]/pharmacy # [id number] Start Date: 08/03/17 Stop Date: 08/13/17 Status: Completed Augmentin 875 mg oral tablet 875 mg=1 tab, PO, BID, X 10 day, # 20 tab, 0 Refill(s), [facility] [facility] [place] [id number] Start Date: 08/03/17 Stop Date: 08/03/17 Status: Discontinued Flonase 0.05 mg/inh nasal spray 2 spray, NASAL, Daily, in each nostril, # 16 gm, 1 Refill(s), Pharmacy: [id number] Start Date: 08/03/17 Status: Ordered Flonase 0.05 mg/inh nasal spray 2 spray, NASAL, Daily, in each nostril, # 16 gm, 1 Refill(s), Pharmacy: [place] [place] [id number] Start Date: 08/03/17 Stop Date: 08/03/17 Status: Discontinued hydrochlorothiazide 25 mg oral tablet 25 mg=1 tab, PO, Daily, # 90 tab, 0 Refill(s), Pharmacy: [facility] [id number] Start Date: 08/03/17 Stop Date: 08/28/17 Status: Discontinued Results No data available for [...] 10; Started at age: 19.0; entered on: 10/09/17 Assessment and Plan No data available for this section
--- OUTSIDE RECORDS SUMMARY | 2018-04-02 12:57 | XMS REPORT | Summary of Care ---
Author Author [facility] Organization [facility] Address Unknown Phone Unavailable Encounter VIRI Vargas(CARL) [id number] Date(s): 09/18/17 - 09/18/[address] [place] [address]- [phone] Discharge Disposition: Home or Self Care Attending Physician: Darek Aguilar DO Vital Signs Most recent to 1 oldest [Reference Range]: Height 175.26 cm (09/18/17 1:54 PM) Temperature Oral 98.3 DegF [96.4-99.1 DegF] (09/18/17 1:54 PM) Blood Pressure 132/80 mmHg [90-140/60-90 mmHg] (09/18/17 1:54 PM) Peripheral Pulse 64 bpm Rate [60-100 bpm] (09/18/17 1:54 PM) Weight 112.727 kg (09/18/17 1:54 PM) Body Mass Index 36.7 m2 (09/18/17 1:54 PM) Problem List Condition Effective Dates Status Health Status Informant COPD with acute < 02/21/16 Resolved exacerbation(Confirm ed) Eye Active disorder(Confirmed) Hypertension(Confirm Resolved ed) HTN Active (hypertension)(Confi rmed) Obesity(Confirmed) Active 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
--- OUTSIDE RECORDS SUMMARY | 2018-04-02 12:57 | XMS REPORT | Summary of Care ---
Author Author [facility] Organization [facility] Address Unknown Phone Unavailable Encounter VIRI Vargas(CARL) [id number] Date(s): 10/09/17 - 10/09/[address] [place] [address]- [phone] Discharge Disposition: Home or Self Care Attending Physician: Darek Aguilar DO Vital Signs Most recent to 1 oldest [Reference Range]: Height 175.26 cm (10/09/17 2:17 PM) Temperature Oral 97.4 DegF [96.4-99.1 DegF] (10/09/17 2:17 PM) Blood Pressure 149/93 mmHg [90-140/60-90 mmHg] *HI* (10/09/17 2:17 PM) Peripheral Pulse 79 bpm Rate [60-100 bpm] (10/09/17 2:17 PM) Weight 111.534 kg (10/09/17 2:17 PM) Body Mass Index 36.31 m2 (10/09/17 2:17 PM) Problem List Condition Effective Dates Status Health Status Informant COPD with acute < 02/21/16 Resolved exacerbation(Confirm ed) Eye Active disorder(Confirmed) Hypertension(Confirm Resolved ed) HTN Active (hypertension)(Confi rmed) Obesity(Confirmed) Active 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
--- OUTSIDE RECORDS SUMMARY | 2018-04-02 12:57 | XMS REPORT ---
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 Allergies, Adverse Reactions, Alerts This patient has no known allergies or adverse reactions. Medications This patient has no known medications. 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 Multiplanar T1 sequences were then performed following intravenous administration of 20 ml Dotarem .Comment: 5 mg p.o. Valium given for sedation.IMPRESSION:1. No evidence of demyelinating lesions in the cervical cord.2. Broad-based 2 mm spondylitic protrusion at C5-6 with mild canal stenosis. Moderate bilateral foraminal stenosis.3. At C6-7, moderate disc degeneration with 3 mm posterior spondylitic protrusion, mild to moderate central canal stenosis and mild bilateral foraminal narrowing.4. No pathologic enhancement in the cord, meninges, bones or soft tissues.FINDINGS:COMPARISON: By attending physician note, the bilateral optic neuritis. No intracranial lesions consistent with demyelinating disease.There is straightened cervical lordosis.Vertebral heights are well maintained without fracture or destructive osseous lesion.There is nuclear dehydration at each cervical level. Disc heights are reduced with spondylosis at C5-6 and C6-7.The prevertebral soft tissues are normal.The craniocervical junction is normal without mass or Chiari malformation.The c ervical spinal cord is normal without compression, edema or pathologic signal intensity. No demyelinating lesions or myelitis. There is no pathologic enhancement following contrast administration.FINDINGS AT SPECIFIC LEVELS:C2-C3: Central canal and foramen are patent. Uncinate joints and facet joints are mildly degenerated.C3-C4: 1.5 mm central protrusion is present. Canal and foramen are patent. Uncinate joints and facet joints are mild to moderately degenerated.C4-C5: 1 mm diffuse protrusion is present. Canal and foramen are patent. Uncinate joints and facet joints are degenerated.C5-C6: Disc height is reduced with nuclear dehydration. 2 mm diffuse spondylitic protrusion abuts ventral cord without cord compression. Canal is mildly stenotic. There is moderate bilateral foraminal narrowing. Uncinate joints and facet joints are moderately degenerated.C6-C7: Disc is reduced in height with nuclear dehydration, spondylosis and fibrofatty endplate degenerative changes. 3 mm diffuse posterior spondylitic protrusion is present with effacement of ventral cord. No cord compression. Mild to moderate central canal stenosis is present with effacement of CSF around the cord. Mild symmetric foraminal narrowing is present.C7-T1: Canal and foramen are patent. Cord is normal. Uncinate joints and facet joints are mildly degenerated. 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 3.0 Lata MRITECHNIQUE: Multiplanar SE and FSE evaluation of the thoracic region was performed with and without contrast enhancement. 20 ml of Dotarem were administered intravenously.Comment: 5 mg p.o. Valium given for sedation.IMPRESSION:1. No evidence of demyelinating lesions in the thoracic spinal cord. No pathologic enhancement following contrast administration.2. No fractures or destructive osseous lesions.3. Multilevel disc degeneration with loss of height, nuclear dehydration and spondylosis.4. Multilevel broad-based disc protrusions, described below. No significant thoracic cord compression.5. Multilevel facet osteoarthritis.FINDINGS:COMPARISON: MRI cervical and lumbar spines obtained on the same date, 11/05/2017.There is normal thoracic kyphosis and alignment.Vertebral body heights are well maintained without fracture or destructive lesion.There is mild - moderate degeneration of all thoracic discs, detailed below. Multilevel nuclear desiccation, spondylosis and small broad- based protrusions are present.There are no paraspinous or prevertebral masses. There are no pleural effusions.The thoracic spinal cord is normal. There is no alteration of cord caliber. There is no significant cord compression. There are no demyelinating lesions seen in the cord. No evidence of myelitis. Conus is normal, terminating at T12-L1.No pathologic enhancement is seen following contr ast administration.FINDINGS AT SPECIFIC LEVELS:T1-2 - T3-4: There is mild loss of disc height with nuclear dehydration. No focal disc herniations. Canal and foramen are patent.T4-5: 2 mm left paracentral protrusion is present with mild left foraminal narrowing. Central canal, cord and right foramen are patent. Facet joints are mildly degenerated.T5-6: Disc height is reduced with nuclear dehydration and spondylosis. Broad-based 2 mm posterior spondylitic protrusion is present with mild proximal left foraminal narrowing. Central canal and right foramen are patent. Facet joints are mildly degenerated.T6-7: Disc height is reduced with nuclear dehydration and spondylosis. 2 mm broad-based spondylitic protrusion is present with patent canal and patent foramen. Facet joints are degenerated.T7-8: There is reduction of disc height with nuclear dehydration and spondylosis. 3 mm central and left lateralizing protrusion minimally effaces the left ventral cord without cord compression. Canal is patent. Foramen are patent. Facet are degenerated.T8-9: Disc height is reduced with nuclear dehydration. 2 mm right paracentral protrusion mildly effaces ventral cord without cord compression. Proximal foramen are narrowed bilaterally. Canal is patent. Facet are degenerated.T9-10: Disc height is reduced with nuclear dehydration and spondylosis. Canal and foramen are patent. Facet joints are moderately degenerated. T10-11: Disc height is moderately reduced with 2 mm diffuse protrusion, slightly eccentric to the left. Central canal and right foramen are patent. Proximal left foramen is mildly narrowed. Facet joints are degenerated.T11-12: Disc is moderately degenerated with loss of height, nuclear dehydration and spondylosis. Canal and foramen are patent. Facet joints are degenerated.T12-L1: Disc is moderately degenerated with loss of height, nuclear dehydration and spondylosis. Canal and foramen are patent. Facet joints are degenerated.
--- OUTSIDE RECORDS SUMMARY | 2018-04-02 12:57 | XMS REPORT | Summary of Care ---
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) - Discharge Disposition: Home or Self Care Attending Physician: Erica Del Toro DO Vital Signs 1 2 3 Most recent to oldest [Reference Range]: 177.8 cm (07/09/17 10:45 PM) Height 97.6 DegF (07/10/17 3:52 AM) 98.7 DegF (07/09/17 10:45 PM) Temperature Oral [96.4-99.1 DegF] 150/95 mmHg *HI* (07/10/17 3:52 AM) 141/87 mmHg *HI* (07/10/17 2:00 AM) 153/82 mmHg *HI* (07/10/17 1:00 AM) Blood Pressure [90-140/60-90 mmHg] 18 BRMIN (07/10/17 3:52 AM) 17 BRMIN (07/10/17 2:00 AM) 20 BRMIN (07/10/17 1:00 AM) Respiratory Rate [14-20 BRMIN] 94 bpm (07/10/17 3:52 AM) 78 bpm (07/09/17 10:45 PM) Peripheral Pulse Rate [60-100 bpm] 113.636 kg (07/09/17 10:45 PM) Weight 35.95 m2 (07/09/17 10:45 PM) Body Mass Index Problem List Condition Effective Dates Status Health Status Informant COPD with acute < 02/21/16 Resolved exacerbation(Confirm ed) Eye Active disorder(Confirmed) Hypertension(Confirm Resolved ed) HTN Active (hypertension)(Confi rmed) Obesity(Confirmed) Active 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) Allergies, Adverse Reactions, Alerts Substance Reaction Severity Status NKDA Active Medications Saline Flush 0.9% 10 mL, Route: IVP, Drug Form: INJ, Dosing Weight 112.273, kg, PRN, PRN Line Flus h, Start date: 07/09/17 22:38:00 CDT, Duration: 30 day, Stop date: 08/08/17 22:3 7:00 CDT Notes: (Same as: BD Posiflush) Start Date: 07/09/17 Stop Date: 07/10/17 Status: Discontinued Results ELECTROLYTES Most recent to 1 oldest [Reference Range]: Sodium Lvl [135-145 140 mEq/L mEq/L] (07/10/17 12:19 AM) Potassium Lvl 3.4 mEq/L [3.5-5.1 mEq/L] *LOW* (07/10/17 12:19 AM) Chloride Lvl [95-109 108 mEq/L mEq/L] (07/10/17 12:19 AM) CO2 [24-32 mEq/L] 25 mEq/L (07/10/17 12:19 AM) AGAP [10.0-20.0 10.4 mEq/L mEq/L] (07/10/17 12:19 AM) CHEM PANEL Most recent to 1 oldest [Reference Range]: Creatinine Lvl 0.81 mg/dL [0.50-1.40 mg/dL] (07/10/17 12:19 AM) eGFR 105 mL/min/1.73m2 1 *NA* (07/10/17 12:19 AM) BUN [7-22 mg/dL] 12 mg/dL (07/10/17 12:19 AM) B/C Ratio [6-25] 15 (07/10/17 12:19 AM) Glucose Lvl [70-99 127 mg/dL mg/dL] *HI* (07/10/17 12:19 AM) Total Protein 7.5 g/dL [6.4-8.4 g/dL] (07/10/17 12:19 AM) Albumin Lvl [3.5-5.0 4.0 g/dL g/dL] (07/10/17 12:19 AM) Globulin [2.7-4.2 3.5 g/dL g/dL] (07/10/17 12:19 AM) A/G Ratio [0.7-1.6] 1.1 (07/10/17 AM) Calcium Lvl 8.6 mg/dL [8.5-10.5 mg/dL] (07/10/17:19 AM) ALT [0-65 unit/L] 33 unit/L (07/10/17: AM) AST [0-37 unit/L] 19 unit/L (07/10/17: AM) Alk Phos [39-136 82 unit/L unit/L] (07/10/17: AM) Bili Total [0.2-1.3 0.2 mg/dL mg/dL] (07/10/17 12:19 AM) 1Result Comment: The eGFR is calculated [...] 1 oldest [Reference Range]: Total CK [12-191 123 unit/L unit/L] (07/10/17 12:19 AM) CK MB [0.5-3.6 0.8 ng/mL ng/mL] (07/10/17 12:19 AM) CK MB Index 0.7 [0.0-2.5] (07/10/17 AM) Troponin-I <0.02 ng/mL [0.00-0.40 ng/mL] (07/10/17 AM) HEMATOLOGY Most recent to 1 oldest [Reference Range]: WBC [3.7-10.4 K/CMM] 14.7 K/CMM *HI* (07/10/17 AM) RBC [4.70-6.10 5.61 M/CMM M/CMM] (07/10/17 AM) Hgb [14.0-18.0 g/dL] 15.7 g/dL (07/10/17 AM) Hct [42.0-54.0 %] 46.4 % (07/10/17 AM) MCV [80.0-94.0 fL] 82.7 fL (07/10/17 AM) MCH [27.0-31.0 pg] 27.9 pg (07/10/17 AM) MCHC [32.0-36.0 33.8 g/dL g/dL] (07/10/17 AM) RDW [11.5-14.5 %] 13.0 % (07/10/17 AM) MPV [7.4-10.4 fL] 9.2 fL (07/10/17 AM) Platelet [133-450 247 K/CMM K/CMM] (07/10/17 AM) Segs [45.0-75.0 %] 69.6 % (07/10/17 AM) Lymphocytes 20.4 % [20.0-40.0 %] (07/10/17 AM) Monocytes [2.0-12.0 7.1 % %] (07/10/17 AM) Eosinophils [0.0-4.0 2.3 % %] (07/10/17 AM) Basophils [0.0-1.0 0.6 % %] (07/10/17 AM) Segs-Bands # 10.2 K/CMM [1.5-8.1 K/CMM] *HI* (07/10/17 12:19 AM) Lymphocytes # 3.0 K/CMM [1.0-5.5 K/CMM] (07/10/17 12:19 AM) Monocytes # [0.0-0.8 1.0 K/CMM K/CMM] *HI* (07/10/17 12:19 AM) Eosinophils # 0.3 K/CMM [0.0-0.5 K/CMM] (07/10/17 12:19 AM) Basophils # [0.0-0.2 0.1 K/CMM K/CMM] (07/10/17 12:19 AM) Immunizations Given and Recorded Vaccine Date [...]
--- OUTSIDE RECORDS SUMMARY | 2018-04-02 12:57 | XMS REPORT | Summary of Care ---
Author Author [facility] Organization [facility] Address Unknown Phone Unavailable Encounter HQ Alicia(FIN) [id number] Date(s): 12/07/17 - 12/07/17 [facility] [address] [place] [address]- [phone] Encounter Diagnosis Feeling light headed (Discharge Diagnosis) - 12/07/17 Generalized weakness (Discharge Diagnosis) - 12/07/17 Discharge Disposition: Home or Self Care Attending Physician: Alison Quiles MD Vital Signs 1 2 3 Most recent to oldest [Reference Range]: 175.26 cm (12/07/17 9:26 AM) Height 97.9 DegF (12/07/17 9:26 AM) Temperature Oral [96.4-99.1 DegF] 153/87 mmHg *HI* (12/07/17 11:22 AM) 140/83 mmHg (12/07/17 10:20 AM) 172/88 mmHg *HI* (12/07/17 9:26 AM) Blood Pressure [90-140/60-90 mmHg] 16 BRMIN (12/07/17 10:20 AM) 23 BRMIN *HI* (12/07/17 10:04 AM) 23 BRMIN *HI* (12/07/17 10:03 AM) Respiratory Rate [14-20 BRMIN] 77 bpm (12/07/17 9:26 AM) Peripheral Pulse Rate [60-100 bpm] 116.364 kg (12/07/17 9:26 AM) Weight 37.88 m2 (12/07/17 9:26 AM) Body Mass Index Problem List Condition Effective Dates Status Health Status Informant COPD with acute < 02/21/16 Resolved exacerbation(Confirm ed) Eye Active disorder(Confirmed) Hypertension(Confirm Resolved ed) HTN Active (hypertension)(Confi rmed) Obesity(Confirmed) Active 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) Allergies, Adverse Reactions, Alerts Substance Reaction Severity Status NKDA Active Medications Sodium Chloride 0.9% (Bolus) IV 1,000 mL, 1000 ml/hr, Infuse Over: 1 hr, Route: IV, 1,000, Drug form: INJ, ONCE, Priority: STAT, Dosing Weight 116.364 kg, Start date: 12/07/17 9:48:00 CDT, Stop date: 12/07/17 9:48:00 CDT Start Date: 12/07/17 Stop Date: 12/07/17 Status: Completed Results ELECTROLYTES Most recent to 1 oldest [Reference Range]: Sodium Lvl [135-145 140 mEq/L mEq/L] (12/07/17 9:48 AM) Potassium Lvl 4.0 mEq/L [3.5-5.1 mEq/L] (12/07/17 9:48 AM) Chloride Lvl [95-109 103 mEq/L mEq/L] (12/07/17 9:48 AM) CO2 [24-32 mEq/L] 28 mEq/L (12/07/17 9:48 AM) AGAP [10.0-20.0 13.0 mEq/L mEq/L] (12/07/17 9:48 AM) CHEM PANEL Most recent to 1 oldest [Reference Range]: Creatinine Lvl 1.02 mg/dL [0.50-1.40 mg/dL] (12/07/17 9:48 AM) eGFR 87 mL/min/1.73m2 1 *NA* (12/07/17 9:48 AM) BUN [7-22 mg/dL] 14 mg/dL (12/07/17 9:48 AM) Glucose Lvl [70-99 150 mg/dL mg/dL] *HI* (12/07/17 9:48 AM) Total Protein 7.5 g/dL [6.4-8.4 g/dL] (12/07/17 9:48 AM) Albumin Lvl [3.5-5.0 4.2 g/dL g/dL] (12/07/17 9:48 AM) Globulin [2.7-4.2 3.3 g/dL g/dL] (12/07/17 9:48 AM) A/G Ratio [0.7-1.6] 1.3 (12/07/17 9:48 AM) Calcium Lvl 9.0 mg/dL [8.5-10.5 mg/dL] (12/07/17 9:48 AM) Phosphorus [2.5-4.5 3.0 mg/dL mg/dL] (12/07/17 9:48 AM) Magnesium Lvl 2.2 mg/dL [1.8-2.4 mg/dL] (12/07/17 9:48 AM) ALT [0-65 unit/L] 30 unit/L (12/07/17 9:48 AM) AST [0-37 unit/L] 9 unit/L (12/07/17 9:48 AM) Alk Phos [39-136 61 unit/L unit/L] (12/07/17 9:48 AM) Bili Total [0.2-1.3 0.5 mg/dL mg/dL] (12/07/17 9:48 AM) Bili Direct [0.0-0.3 0.2 mg/dL mg/dL] (12/07/17 9:48 AM) Bili Indirect 0.3 mg/dL [0.0-1.0 mg/dL] (12/07/17 9:48 AM) Lactic Acid Lvl 2.1 mMol/L [0.5-2.2 mMol/L] (12/07/17 9:48 AM) 1Result Comment: The eGFR is calculated [...] 1 oldest [Reference Range]: Total CK [12-191 48 unit/L unit/L] (12/07/17 9:48 AM) CK MB [0.5-3.6 1.0 ng/mL ng/mL] (12/07/17 9:48 AM) CK MB Index 2.1 [0.0-2.5] (12/07/17 9:48 AM) Troponin-I <0.02 ng/mL [0.00-0.40 ng/mL] (12/07/17 9:48 AM) URINE AND STOOL Most recent to 1 oldest [Reference Range]: UA Turbidity [Clear] Clear (12/07/17 9:59 AM) UA Color Ltyellow *NA* (12/07/17 9:59 AM) UA pH [5.0-8.0] 6.0 (12/07/17 9:59 AM) UA Spec Grav 1.004 [<=1.030] (12/07/17 9:59 AM) UA Glucose [Negative Negative mg/dL mg/dL] *NA* (12/07/17 9:59 AM) UA Blood [Negative] Negative (12/07/17 9:59 AM) UA Ketones [Negative Negative mg/dL mg/dL] *NA* (12/07/17 9:59 AM) UA Protein [Negative Negative mg/dL mg/dL] (12/07/17 9:59 AM) UA Urobilinogen <=1.0 mg/dL [0.1-1.0 mg/dL] *NA* (12/07/17 9:59 AM) UA Bili [Negative] Negative *NA* (12/07/17 9:59 AM) UA Leuk Est Negative [Negative] (12/07/17 9:59 AM) UA Nitrite Negative [Negative] (12/07/17 9:59 AM) UA WBC [0-5 /HPF] 2 /HPF (12/07/17 9:59 AM) UA RBC [0-2 /HPF] <1 /HPF (12/07/17 9:59 AM) UA Sq Epi None Seen *NA* (12/07/17 9:59 AM) HEMATOLOGY Most recent to 1 oldest [Reference Range]: WBC [3.7-10.4 K/CMM] 16.7 K/CMM *HI* (12/07/17 9:48 AM) RBC [4.70-6.10 6.09 M/CMM M/CMM] (12/07/17 9:48 AM) Hgb [14.0-18.0 g/dL] 17.0 g/dL (12/07/17 9:48 AM) Hct [42.0-54.0 %] 51.4 % (12/07/17 9:48 AM) MCV [80.0-94.0 fL] 84.5 fL (12/07/17 9:48 AM) MCH [27.0-31.0 pg] 27.9 pg (12/07/17 9:48 AM) MCHC [32.0-36.0 33.1 g/dL g/dL] (12/07/17 9:48 AM) RDW [11.5-14.5 %] 14.3 % (12/07/17 9:48 AM) MPV [7.4-10.4 fL] 9.0 fL (12/07/17 9:48 AM) Platelet [133-450 230 K/CMM K/CMM] (12/07/17 9:48 AM) Segs [45.0-75.0 %] 88.0 % *HI* (12/07/17 9:48 AM) Lymphocytes 7.4 % [20.0-40.0 %] *LOW* (12/07/17 9:48 AM) Monocytes [2.0-12.0 4.3 % %] (12/07/17 9:48 AM) Eosinophils [0.0-4.0 0.1 % %] (12/07/17 9:48 AM) Basophils [0.0-1.0 0.2 % %] (12/07/17 9:48 AM) Segs-Bands # 14.7 K/CMM [1.5-8.1 K/CMM] *HI* (12/07/17 9:48 AM) Lymphocytes # 1.2 K/CMM [1.0-5.5 K/CMM] (12/07/17 9:48 AM) Monocytes # [0.0-0.8 0.7 K/CMM K/CMM] (12/07/17 9:48 AM) RBC Morph Normal (12/07/17 9:48 AM) Plt Morph Normal (12/07/17 9:48 AM) Immunizations Given and Recorded Vaccine Date Status Refusal Reason pneumococcal 23-valent vaccine1 10/31/17 Recorded pneumococcal 23-valent vaccine 03/08/16 Given diphtheria/pertussis, acel/tetanus adult 06/26/16 Given influenza virus vaccine, inactivated 03/04/16 Given 1Location History: [facility] Procedures No data available for this section [...] 10; Started at age: 19.0; entered on: 12/07/17 Assessment and Plan No data available for this section
--- OUTSIDE RECORDS SUMMARY | 2018-04-02 12:57 | XMS REPORT | Summary of Care ---
Author Author [facility] Organization [facility] Address Unknown Phone Unavailable Encounter HQ Mylenentr_rebecca(FIN) [id number] Date(s): 07/15/17 - 07/16/17 [place] [address] [facility] [address] [place] [address]- [phone] Vital Signs No data available for this [...]
--- OUTSIDE RECORDS SUMMARY | 2018-04-02 12:57 | XMS REPORT | Summary of Care ---
Author Author [facility] Address Unknown Phone Unavailable Encounter VIRI Vargas(CARL) [id number] Date(s): 11/17/17 - 11/17/[address] [place] [address]- [phone] Discharge Disposition: Home or Self Care Attending Physician: Darek Aguilar DO Vital Signs Most recent to 1 oldest [Reference Range]: Height 175.26 cm (11/17/17 8:40 AM) Temperature Oral 98.4 DegF [96.4-99.1 DegF] (11/17/17 8:40 AM) Blood Pressure 143/90 mmHg [90-140/60-90 mmHg] *HI* (11/17/17 8:40 AM) Peripheral Pulse 79 bpm Rate [60-100 bpm] (11/17/17 8:40 AM) Weight 115.909 kg (11/17/17 8:40 AM) Body Mass Index 37.74 m2 (11/17/17 8:40 AM) Problem List Condition Effective Dates Status Health Status Informant COPD with acute < 02/21/16 Resolved exacerbation(Confirm ed) Eye Active disorder(Confirmed) Hypertension(Confirm Resolved ed) HTN Active (hypertension)(Confi rmed) Obesity(Confirmed) Active 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
--- NOTE | 2018-04-02 17:27 | Operative Report ---
DATE OF PROCEDURE: April 02, 2018 INDICATIONS FOR PROCEDURE: Chest pain and positive stress test. PRE-SEDATION ASSESSMENT: The patient's medical history, social history, prior experience with anesthesia was reviewed prior to the procedure. Risks, benefits and alternatives of moderate sedation were explained to the patient and the patient was deemed to be an appropriate candidate for moderate sedation. The risks, benefits and alternatives of the procedure were explained to the patient prior to the procedure informed consent was obtained as documented in the chart. MEDICATIONS ADMINISTERED: Please see nursing notes for medications administered during the procedure. PROCEDURES PERFORMED 1. Coronary angiography. 2. Left heart catheterization. 3. Intravascular ultrasound of the left anterior descending artery and left main coronary artery. PROCEDURE DETAIL: Patient was brought to the cardiac catheterization laboratory in a fasting state. Right wrist was prepped and draped in a sterile fashion and a 6-Iranian slender sheath was inserted into the right radial artery using the modified Seldinger technique. Coronary angiography was performed using a 5-Iranian Layla radial catheter. Left heart catheterization performed using the same Layla radial catheter. The 5-Iranian diagnostic catheter caused significant dampening in the left main coronary artery and significant chest pain and upper abdominal pain was experienced by the patient. There was suspicion of left main disease as the caliber of the left main looks smaller than the caliber of the left circ and the OM. There was also suspicion of proximal and ostial LAD disease as well as 70% to 80% mid LAD lesion was noted. Because of these findings, we decided to proceed with intravascular ultrasound of left main coronary artery for possible referral for coronary artery bypass graft surgery. For intravascular ultrasound of the left main and LAD, full anticoagulation was achieved using IV and IC heparin boluses to achieve ACT near 300. A 6-Iranian JL4 guide catheter was used to engage the left main coronary artery. A ____ Prowater wire was used to cross the left main into the distal LAD. Intravascular ultrasound was performed using the [employer] IVS system. Measurements were performed off line after all the wires and catheters were removed. Measurement showed left main coronary artery with reference area of 7.8 mm squared and minimal luminal area of 5.9 mm squared in the distal third of the left main. Left anterior descending artery showed, in the proximal portion, referenced area of 12.2 mm squared and minimal luminal area of 3.8 mm squared. These lesions were deemed to be anatomically significant and decision was made to refer the patient for bypass surgery. All catheters were removed over a wire. Access site was closed using a TR band. Patient tolerated the procedure well. The procedure ended without any complications. FINDINGS: 1. Left main coronary artery: Diffuse plaquing in the left main coronary artery with minimal luminal area of 5.9 mm squared in the distal one third. 2. Left anterior descending: Large vessel, bifed LAD system, large diagonal gives off several diagonal branches. The septal LAD tapers as it approaches the apex. There is a 70% lesion in the mid LAD. 3. Left circumflex: Large non-dominant left circumflex, one large OM branch without any significant stenosis. 4. Right coronary artery: Very large dominant RCA with large PD and PL system. There is a 30% plaque in the distal RCA and the proximal RPDA, otherwise no significant stenoses. 5. Left ventricular end-diastolic pressure was 12 mmHg. 6. IVUS findings as described above. RECOMMENDATIONS: 1. Usual TR band care postprocedure. 2. Patient will follow up with me in clinic tomorrow and we will perform echocardiogram as well as carotid Dopplers in preparation for referral for coronary artery bypass graft surgery. Will refer him urgently so he can get his surgery done as soon as possible. Currently he has no unstable symptoms and there are no critical lesions that are flow limiting. 3. Patient was instructed to avoid any physical exertion and go to the ER if he had any chest discomfort. 4. Patient will be started on metoprolol. He is already taking aspirin and atorvastatin. Job#: [id number]
== END | disposition home or self-care (01) ==
LOC: CATH LAB 12:51
PROVIDERS: ATTEND Internal Medicine
DX: I25.10 Atherosclerotic heart disease of native coronary artery without angina pectoris (principal); R94.39 Abnormal result of other cardiovascular function study; I10 Essential (primary) hypertension; R10.10 Upper abdominal pain, unspecified; Z79.82 Long term (current) use of aspirin; Z68.39 Body mass index [BMI] 39.0-39.9, adult; Z82.49 Family history of ischemic heart disease and other diseases of the circulatory system; Z82.3 Family history of stroke
CPT/HCPCS: 92978; 93458; J1644; J2001; J2250; J7030; Q9967